=== PATIENT | female | born 1950 | race Caucasian/White ===

== ENCOUNTER 2016-07-17 11:08 | Inpatient (IN) | payer MEDICARE ==
[2016-07-17] VITALS (12 sets, daily range): BP systolic 104–160; BP diastolic 55–80
[~2016-07-17] VITALS: Ht 162.6 cm; Wt 53.5 kg
[~2016-07-17 11:08] MED LIST: ALBU1.25 IH; ASPI-482 PO; ATOR20TA58 PO; BUDE10.2 IH; CARV25TA2 PO; CLOP75TA PO; DIAZ2TAB3 PO; ISOS60TA2 PO; LEVO25TA4 PO; LISI-334 PO; SIMV20TA3 PO; TRAZ50TA15 PO
[2016-07-17] MEDS ORDERED: IV NORMAL SALINE 1000ML BAG 1,000 ML IV ONE ×2 (11:45→15:45)
[2016-07-17 11:58] LABS: BASO % 0 % (0-3); EOS % 0 % (0-3); HEMATOCRIT 44.8 % (36.0-47.0); HEMOGLOBIN 14.8 g/dL (12.0-15.5); LYMPH # 1.5 x10^3/uL (1.0-4.8); LYMPH % 13 % (24-48); MEAN CORPUSCULAR HEMOGLOBIN 32 pg (25-35); MEAN CORPUSCULAR HGB CONC 33 g/dL (31-37); MEAN CORPUSCULAR VOLUME 98 fL (79-100); MONO % 6 % (0-9); NEUT % 81 % (31-73); PLATELET COUNT 147 x10^3/uL (140-400); RED BLOOD COUNT 4.59 x10^6/uL (3.50-5.40); RED CELL DISTRIBUTION WIDTH 15.4 % (11.5-14.5); WHITE BLOOD COUNT 11.3 x10^3/uL (4.0-11.0)
[2016-07-17 11:59] LABS: BILIRUBIN,URINE MODERATE (NEG); GLUCOSE,URINE NEGATIVE (NEG); NITRITE,URINE NEGATIVE (NEG); PH,URINE 5.5; PROTEIN,URINE NEGATIVE (NEG-TRACE); UROBILINOGEN,URINE 0.2 mg/dL (0.2 mg/dL)
[2016-07-17 12:04] LABS: BARBITURATES NEG (NEG); BENZODIAZEPINES POS (NEG); CANNABINOIDS NEG (NEG); COCAINE NEG (NEG); METHADONE NEG (NEG); OPIATES NEG (NEG); PHENCYCLIDINE NEG (NEG)
[2016-07-17 12:05] LABS: CALCIUM 11.5 mg/dL (8.5-10.1); CREATININE 1.7 mg/dL (0.6-1.0); GFR 29.9; INR 1.1 (0.8-1.1); POTASSIUM 3.7 mmol/L (3.5-5.1); PROTHROMBIN TIME PATIENT 13.8 SEC (11.7-14.0)
[2016-07-17 12:07] LABS: BACTERIA,URINE 0 /HPF (0-FEW); RBC,URINE 0 /HPF (0-2); SQUAMOUS EPITHELIAL CELL,UR FEW /LPF; WBC,URINE 0 /HPF (0-4)
[2016-07-17 12:11] LABS: ALBUMIN 4.2 g/dL (3.4-5.0); ALBUMIN/GLOBULIN RATIO 1.6 (1.0-1.7); TOTAL BILIRUBIN 1.2 mg/dL (0.2-1.0); TOTAL PROTEIN 6.8 g/dL (6.4-8.2)
--- NOTE | 2016-07-17 12:39 | EKG ---
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
--- NOTE | 2016-07-17 12:59 | RAD ---
CT HEAD AND CERVICAL SPINE WITHOUT CONTRAST History: AMS/fall Comparison: July 21, 2015. Procedure: Axial images are obtained of the head from the skull base through the vertex without IV contrast. Noncontrast helical CT of the cervical spine was performed. Axial, sagittal, and coronal reconstructions were obtained. One or more of the following individualized dose reduction techniques were utilized for this examination: 1. Automated exposure control 2. Adjustment of the mA and/or kV according to patient size 3. Use of iterative reconstruction technique Head Findings: There is a small volume of hyperdensity present within sulci overlying the left cerebral hemisphere consistent with subarachnoid blood products, mostly along the lateral sulci although minimally seen along the interhemispheric fissure. Blood products are present within the posterior Falcine fissure. Mild prominence of the sulci consistent with cerebral volume loss appears similar to the previous exam. No definite overlying subdural blood products are present. No mass effect or midline shift is seen. Basilar cisterns are patent. Bone windows demonstrate no significant calvarial abnormality. Scalp laceration is present along the vertex on the left. The visualized paranasal sinuses appear clear. Mastoid air cells are well aerated. Cervical Spine Findings: There is no evidence of acute fracture or acute malalignment. C1-C2 articulation is maintained. Vertebral body heights are maintained. Normal cervical lordosis and alignment is maintained. Degenerative changes are present throughout. Posterior elements are intact. Visualized soft tissues of the neck demonstrate no significant abnormalities. The visualized lung apices are clear. IMPRESSION: 1. Acute subarachnoid blood products overlie the left cerebral hemisphere. 2. No acute fracture of the cervical spine. Findings discussed with the Dr. Marie in the ER at 12:55 PM on 07/17/2016.
--- NOTE | 2016-07-17 13:16 | RAD ---
ACUTE ABDOMEN SERIES Clinical Indication: AMS Comparison: July 21, 2015. Technique: Portable upright AP view of the chest is obtained, as well as upright and supine views of the abdomen. Findings: No focal consolidation, pleural effusion or pneumothorax is seen. Cardiomediastinal silhouette is stable in size. No intra-abdominal free air or air-fluid levels are seen on the upright view. No dilated bowel loops are seen to suggest obstruction. Visualized osseous structures and overlying soft tissues of the chest and abdomen demonstrate no acute finding. Degenerative changes present within the spine. IMPRESSION: No radiographic evidence of an acute cardiopulmonary process. Nonobstructive appearing bowel gas pattern.
--- NOTE | 2016-07-17 13:17 | RAD ---
SHOULDER 2+V RIGHT Clinical Indication: fall/pain Comparison: None. Technique: Internal and external rotational and Y scapular views of the right shoulder are obtained. Findings: No acute fracture or dislocation is seen. Glenohumeral and acromioclavicular joints are maintained. Visualized ribs are intact. Visualized lung is clear. Surrounding soft tissues demonstrate no acute finding. IMPRESSION: No acute osseous injury seen.
--- NOTE | 2016-07-17 13:19 | RAD ---
HUMERUS BILAT, ELBOW BILAT 3V Clinical Indication: fall/pain Comparison: None. Technique: Frontal and lateral views of both humeri are obtained. Frontal, oblique and lateral views of both elbows are obtained. Findings: No acute fracture or dislocation is seen involving either humerus. Visualized shoulders and ribs appear intact. No acute osseous injury is seen involving either elbow joint. No posterior fat pad is seen to suggest effusion or fracture. Radiocapitellar alignment is maintained bilaterally. Surrounding soft tissues demonstrate no acute finding. IMPRESSION: No acute osseous injury.
[2016-07-17] MEDS ORDERED: CLINDAMYCIN 600MG PREMIX 50 ML IV ONE (13:45)
[2016-07-17] MEDS ORDERED: LIDOCAINE 1%/EPI 1:100,000 20 ML VIAL. INJ ONE (14:30)
[2016-07-17] MEDS ORDERED: LIDOCAINE/EPI/TETRACAINE TOPICAL GEL 3 ML. TP ONE (14:30)
[2016-07-17] MEDS ORDERED: TETANUS AND DIPHTHERIA TOX/PF 0.5 ML DISP.SYRIN. VAX IM ONE (14:30)
[2016-07-17] MEDS ORDERED: ONDANSETRON PF 4 MG/2 ML VIAL. IV PRN (14:45)
[2016-07-17] MEDS ORDERED: ACETAMINOPHEN 325 MG TABLET. PO PRN (14:45)
[2016-07-17 14:51] LABS: OBC FLU VALID
--- NOTE | 2016-07-17 15:18 | ED.ADGEN ---
Past Medical History Past Medical History: Anxiety, Bronchitis, CAD, Constipation, COPD, High Cholesterol, Hypertension, Pneumonia Past Surgical History: Other Additional Past Surgical Histo: cardiac stents Additional Information: HEAVY SMOKER. Alcohol Use: None Drug Use: None Adult General Chief Complaint Chief Complaint: ALTERED MENTAL STATUS HPI HPI Patient is a 66 year old woman, history of hypertension, hypercholesteremia, COPD, who presents to the emergency department with a report of a fall that occurred yesterday, and altered mental status, with one episode of vomiting. Patient is noted to have matted blood across the back of her head upon arrival, c-collar was placed. She is answering some questions, following some commands, but is confused, tracking with eyes, but not responding verbally to questions. Per her sister's report, was present at bedside, patient did fall yesterday, and has had "a decline over the past couple months". Denies any other injuries, any alcohol use, drug use, is unable to provide any detailed medical history this time. Patient noted to have ecchymosis on her upper arms, also on her knees. She is denying complaints at this time, states that she "might have "fallen. Patient's sister states that the patient called her and said that she fallen yesterday. Patient appears severely clinically dehydrated, blood pressure is 140s over 80s, heart rate is in the 70s, os is saturation of 94% on room air, rectal temperature is 101.2. Review of Systems Review of Systems Constitutional: Denies fever or chills. [] Eyes: Denies change in visual acuity. [] HENT: Denies nasal congestion or sore throat. [] Respiratory: Denies cough or shortness of breath. [] Cardiovascular: Denies chest pain or edema. [] GI: Denies abdominal pain, nausea, vomiting, bloody stools or diarrhea. [] : Denies dysuria. [] Musculoskeletal: Denies back pain or joint pain. [] Integument: Denies rash. [] Neurologic: Denies headache, focal weakness or sensory changes. [] Endocrine: Denies polyuria or polydipsia. [] Lymphatic: Denies swollen glands. [] Psychiatric: Denies depression or anxiety. [] Patient is denying complaints, but is a very limited historian. Current Medications Current Medications Current Medications Medications (Trade) Dose Ordered Sig/Kaela Start Time Stop Time Status Last Admin Dose Admin Clindamycin Phosphate (Cleocin 600 Mg Premix) 50 ml @ 100 mls/hr ONCE ONCE 07/17/16 13:45 07/17/16 14:14 DC 07/17/16 13:49 100 MLS/HR Levofloxacin/ Dextrose 150 ml @ 100 mls/hr 1X ONCE 07/17/16 13:45 07/17/16 15:14 DC 07/17/16 14:22 100 MLS/HR Sodium Chloride 1,000 ml @ 1,000 mls/hr 1X ONCE 07/17/16 11:45 07/17/16 12:44 DC 07/17/16 11:46 1,000 MLS/HR Allergies Allergies Allergies Coded Allergies Type Severity Reaction Last Updated Verified Penicillins Allergy Intermediate 10/23/15 Yes amoxicillin Allergy Intermediate 10/23/15 Yes Physical Exam Physical Exam Constitutional: Well developed, well nourished, no acute distress, non-toxic appearance. [] HENT: Patient with a 1-1/2 by one similar stellate laceration located on the posterior parietal region of the scalp on the left side, hemostatic, approximated and closed per accompanying note, atraumatic, bilateral external ears normal, oropharynx moist, no oral exudates, nose normal. [] Eyes: PERRLA, EOMI, conjunctiva normal, no discharge. [] Neck: Normal range of motion, no tenderness, supple, no stridor. [] Cardiovascular:Heart rate regular rhythm, no murmur, , S1, S2, rubs or gallops. [] Lungs & Thorax: Diminished breath sounds at the bases bilaterally, mild coarse breath sounds noted throughout, patient with a nonproductive cough. Abdomen: Bowel sounds normal, soft, no tenderness, no masses, no pulsatile masses. [] Skin: Warm, poor skin turgor, very warm to touch, ecchymosis noted on shoulders and mid humeral region bilaterally, dry, no erythema, no rash. [] Back: No tenderness, no CVA tenderness. [] Extremities: No tenderness, patient noted to have ecchymosis stated but is ranging arms and legs without issue, is following commands no cyanosis, no clubbing, ROM intact, no edema. Negative Homans sign. [] Neurologic: Patient spontaneous he opening eyes and tracking, will nod head yes or no, is following commands including moving extremities, normal motor function , normal sensory function, no focal deficits noted. [] Psychologic: is confused, flat affect. Current Patient Data Vital Signs Vital Signs Date Time Temp Pulse Resp B/P Pulse Ox O2 Delivery O2 Flow Rate FiO2 07/17/16 11:08 101.2 72 16 159/62 98 Room Air 101.2 Lab Values Laboratory Tests Test 07/17/16 11:15 07/17/16 11:35 07/17/16 13:00 White Blood Count 11.3x10^3/uL (4.0-11.0) H Red Blood Count 4.59x10^6/uL (3.50-5.40) Hemoglobin 14.8g/dL (12.0-15.5) Hematocrit 44.8% (36.0-47.0) Mean Corpuscular Volume 98fL (79-100) Mean Corpuscular Hemoglobin 32pg (25-35) Mean Corpuscular Hemoglobin Concent 33g/dL (31-37) Red Cell Distribution Width 15.4% (11.5-14.5) H Platelet Count 147x10^3/uL (140-400) Neutrophils (%) (Auto) 81% (31-73) H Lymphocytes (%) (Auto) 13% (24-48) L Monocytes (%) (Auto) 6% (0-9) Eosinophils (%) (Auto) 0% (0-3) Basophils (%) (Auto) 0% (0-3) Neutrophils # (Auto) 9.1x10^3uL (1.8-7.7) H Lymphocytes # (Auto) 1.5x10^3/uL (1.0-4.8) Monocytes # (Auto) 0.6x10^3/uL (0.0-1.1) Eosinophils # (Auto) 0.0x10^3/uL (0.0-0.7) Basophils # (Auto) 0.0x10^3/uL (0.0-0.2) Prothrombin Time 13.8SEC (11.7-14.0) Prothrombin Time INR 1.1 (0.8-1.1) PTT 22SEC (24-38) L Sodium Level 143mmol/L (136-145) Potassium Level 3.7mmol/L (3.5-5.1) Chloride Level 102mmol/L (98-107) Carbon Dioxide Level 24mmol/L (21-32) Anion Gap 17 (6-14) H Blood Urea Nitrogen 39mg/dL (7-20) H Creatinine 1.7mg/dL (0.6-1.0) H Estimated GFR (Cockcroft-Gault) 29.9 BUN/Creatinine Ratio 23 (6-20) H Glucose Level 123mg/dL (70-99) H Lactic Acid Level 1.3mmol/L (0.4-2.0) Calcium Level 11.5mg/dL (8.5-10.1) H Total Bilirubin 1.2mg/dL (0.2-1.0) H Aspartate Amino Transferase (AST) 26U/L (15-37) Alanine Aminotransferase (ALT) 36U/L (14-59) Alkaline Phosphatase 88U/L (46-116) Ammonia < 10mcmol/L (11-34) L Troponin I Quantitative < 0.017ng/mL (0.000-0.055) TM-Nva-O-Type Natriuretic Peptide 146pg/mL (0-124) H Total Protein 6.8g/dL (6.4-8.2) Albumin 4.2g/dL (3.4-5.0) Albumin/Globulin Ratio 1.6 (1.0-1.7) Urine Collection Type U cath Urine Color Yellow Urine Clarity Clear Urine pH 5.5 Urine Specific [place] 1.020 Urine Protein Negativemg/dL (NEG-TRACE) Urine Glucose (UA) Negativemg/dL (NEG) Urine Ketones (Stick) 40mg/dL (NEG) Urine Blood Negative (NEG) Urine Nitrite Negative (NEG) Urine Bilirubin Moderate (NEG) Urine Urobilinogen Dipstick 0.2mg/dL (0.2 mg/dL) Urine Leukocyte Esterase Negative (NEG) Urine RBC 0/HPF (0-2) Urine WBC 0/HPF (0-4) Urine Squamous Epithelial Cells Few/LPF Urine Bacteria 0/HPF (0-FEW) Urine Opiates Screen Neg (NEG) Urine Methadone Screen Neg (NEG) Urine Barbiturates Neg (NEG) Urine Phencyclidine Screen Neg (NEG) Urine Amphetamine/Methamphetamine Neg (NEG) Urine Benzodiazepines Screen Pos (NEG) Urine Cocaine Screen Neg (NEG) Urine Cannabinoids Screen Neg (NEG) Urine Ethyl Alcohol Neg (NEG) Influenza Type A Antigen Negative (NEGATIVE) Influenza Type B Antigen Negative (NEGATIVE) Laboratory Tests 07/17/16 11:15 Laboratory Tests 07/17/16 11:15 EKG EKG EC: Sinus rhythm, heart rate 79 bpm, moderate basilar artifact noted, QTc of 356, QRS of 70, SD 164, abnormal ECG, does not meet STEMI criteria. As interpreted by me. [] Radiology/Procedures Radiology/Procedures Procedure note: 2 cm flap laceration of patient's left occipital scalp was anesthetized with 1% lidocaine with epinephrine. Wound was scrubbed with Betadine solution and rinsed with copious amounts of saline. Wound was explored for foreign bodies. No foreign bodies were found. Wound margins were approximated utilizing 5-0 Prolene in a simple interrupted fashion of a single- layer closure for total of 4 stitches. Course & Med Decision Making Course & Med Decision Making Pertinent Labs and Imaging studies reviewed. (See chart for details) Laboratory studies and imaging obtained, CT of the head reveals a small subarachnoid hemorrhage, layering out over the left hemisphere. Discussed with Dr. Stone of neurosurgery, here for the patient admitted to the ICU for close monitoring and plan for a CTA in the morning, as at this time the patient is fairly dehydrated as stated, with a creatinine of 1.7 and a blood urea nitrogen of 39. Patient noted to have ketones in her urine, no evidence of infection in the urine, chest x-rays unremarkable, mild leukocytosis at 11.3, but no significant shift or bandemia. IV fluids initiated, patient also covered with antibiotics, no infiltrate identified on chest x-ray, but based on lung findings and history, with cough, and fever with presentation, community- acquired antibiotics initiated as she has had no recent hospitalizations. Patient is a history of using Plavix, but patient's sister is unclear. Been taking her medications recently. Patient's had no further vomiting the ED, and does deny complaints as stated. Findings as above discussed with Dr. Penaloza of internal medicine, patient accepted to her service as a full admission to the ICU for close monitoring and neurosurgical evaluation as stated. Bridge orders entered per discussion. Dragon Disclaimer Dragon Disclaimer This electronic medical record was generated, in whole or in part, using a voice recognition dictation system. Departure Impression: Primary Impression: Closed head injury Additional Impressions: Altered mental status Subarachnoid hemorrhage Dehydration Disposition: 09 ADMITTED INPATIENT Admitting Physician: Other Condition: IMPROVED Problem Qualifiers MIRIAM VALLEJO DO Jul 17, 2016 15:18 MARE CARRASQUILLO Jul 17, 2016 15:20
[2016-07-17] MEDS ORDERED: ACETAMINOPHEN 650 MG SUPP.RECT. ONE (15:21)
[2016-07-17] MEDS ORDERED: ACETAMINOPHEN 325 MG SUPP.RECT. PR PRN (15:30)
[2016-07-17] MEDS ORDERED: ACETAMINOPHEN 325 MG SUPP.RECT. PR ONE (15:30)
[2016-07-17] MEDS ORDERED: ACETAMINOPHEN 650 MG SUPP.RECT. PR ONE ×2 (15:30→15:45)
--- NOTE | 2016-07-17 17:20 | ACF ---
Admission Forms Criteria SUBARACHNOID HEMORRHAGE, NONSURGICAL TREATMENT Clinical Indications for Admission to Inpatient Care (Place 'X' for any and all applicable criteria): Admission is indicated for ANY ONE of the following(1)(2)(3)(4): [X]I. Acute subarachnoid hemorrhage Extended stay beyond goal length of stay may be needed for(2)(13): [ ]a) Clinical deterioration(3) [ ]b) Hydrocephalus [ ]c) Seizures [ ]d) Cerebral vasospasm [ ]e) Pulmonary edema(4) [ ]f) Hospital-acquired infection (eg, urinary tract infection, pneumonia) [ ]g) Severe electrolyte abnormality (eg, hypernatremia, hyponatremia) [ ]h) Ventilatory failure [ ]i) Increased intracranial pressure [ ]j) Rebleeding The original [employer] content created by [employer] has been revised. The portions of the content which have been revised are identified through the use of italic text or in bold, and [facility] has neither reviewed nor approved the modified material. All other unmodified content is copyright [facility]. Please see references footnoted in the original [facility] edition 2016 Admission Criteria Met?: Yes IVY KULKARNI Jul 17, 2016 17:20
[2016-07-17] MEDS ORDERED: IV NORMAL SALINE 1000ML BAG 1,000 ML IV SCH (17:30)
--- NOTE | 2016-07-17 18:09 | PDOC2 ---
NEUROLOGY CONSULT Date of Admission Date of Admission Full Report Dictated DATE: 07/17/16 TIME: 18:07 Current Medications Current Medications Current Medications Sodium Chloride 1,000 ml @ 1,000 mls/hr 1X ONCE IV Last administered on 11:46; Start 07/17/16 at 11:45; Stop 07/17/16 at 12:44; Status DC Levofloxacin/ Dextrose 150 ml @ 100 mls/hr 1X ONCE IV Last administered on 14:22; Start 07/17/16 at 13:45; Stop 07/17/16 at 15:14; Status DC Clindamycin Phosphate 50 ml @ 100 mls/hr Q8HRS IV ; Start 07/17/16 at 22:00 Clindamycin Phosphate (Cleocin 600 Mg Premix) 50 ml @ 100 mls/hr ONCE ONCE IV Last administered on 07/17/16 13:49; Start 07/17/16 at 13:45; Stop 07/17/16 at 14:14; Status DC Lidocaine/ Epinephrine (Let Topical) 3 ml 1X ONCE TP Last administered on 07/17 14:34; Start 07/17/16 at 14:30; Stop 07/17/16 at 14:31; Status DC Lidocaine/ Epinephrine (Xylocaine 1%-Epi 1:100,000) 20 ml 1X ONCE INJ Last administered on 07/17/16 14:37; Start 07/17/16 at 14:30; Stop 07/17/16 at 14:31 ; Status DC Tetanus/ Diphtheria Toxoids Adsorbed (Tenivac Syringe) 0.5 ml ONCE ONCE VAX IM Last administered on 07/17/16 14:37; Start 07/17/16 at 14:30; Stop 07/17/16 at 14:31; Status DC Ondansetron HCl (Zofran) 4 mg PRN Q8HRS PRN IV NAUSEA/VOMITING; Start 07/17/16 at 14:45; Stop 07/18/16 at 14:44 Acetaminophen (Tylenol) 650 mg PRN Q4HRS PRN PO FEVER; Start 07/17/16 at 14:45 ; Stop 07/18/16 at 14:44 Acetaminophen (Tylenol) 325 mg PRN Q6HRS PRN AR MILD PAIN / TEMP; Start at 15:30 Acetaminophen (Tylenol) 325 mg 1X ONCE AR ; Start 07/17/16 at 15:30; Stop 07/17 at 15:31; Status DC Acetaminophen (Acetaminophen Supp) 650 mg STK-MED ONCE .ROUTE ; Start 07/17/16 at 15:21; Stop 07/17/16 at 15:22; Status DC Acetaminophen 650 mg 650 mg 1X ONCE AR Last administered on 07/17/16t 15:27; Start 07/17/16 at 15:45; Stop 07/17/16 at 15:46; Status DC Sodium Chloride (Iv Sodium Chloride 0.9% 1000ml Bag) 1,000 ml @ 125 mls/hr 1X ONCE IV ; Start 07/17/16 at 15:45; Stop 07/17/16 at 23:44 Acetaminophen 650 mg 650 mg 1X ONCE AR ; Start 07/17/16 at 15:30; Stop at 15:31; Status DC Sodium Chloride 1,000 ml @ 125 mls/hr Q8H IV ; Start 07/17/16 at 17:30 Levetiracetam/ Sodium Chloride (Keppra/Iv Sodium Chloride 0.9% 100ml) 105 ml @ 400 mls/hr Q12HR IV ; Start 07/17/16 at 21:00 Active Scripts Active Reported Isosorbide Mononitrate Er (Isosorbide Mononitrate) 60 Mg Tab.er.24h 1 Tab PO DAILY Simvastatin 20 Mg Tablet 20 Mg PO DAILY Carvedilol 25 Mg Tablet 25 Mg PO BID Aspir 81 (Aspirin) 81 Mg Tablet.dr 1 Tab PO HS Lisinopril 20 Mg Tablet 1 Tab PO DAILY Levothyroxine Sodium 25 Mcg Tablet 1 Tab PO DAILY Clopidogrel (Clopidogrel Bisulfate) 75 Mg Tablet 1 Tab PO DAILY Diazepam 2 Mg Tablet 2 Mg PO PRN TID PRN Trazodone Hcl 50 Mg Tablet 1 Tab PO QHS Allergies Allergies: Coded Allergies: Penicillins (Verified Allergy, Intermediate, 10/23/15) amoxicillin (Verified Allergy, Intermediate, 10/23/15) Vitals VITALS Vital Signs Date Time Temp Pulse Resp B/P Pulse Ox O2 Delivery O2 Flow Rate FiO2 07/17/16 17:30 86 19 140/68 94 Room Air 07/17/16 17:00 101.5 101.5 Labs Labs Laboratory Tests Test 07/17/16 11:15 07/17/16 11:35 07/17/16 13:00 White Blood Count 11.3x10^3/uL (4.0-11.0) Red Blood Count 4.59x10^6/uL (3.50-5.40) Hemoglobin 14.8g/dL (12.0-15.5) Hematocrit 44.8% (36.0-47.0) Mean Corpuscular Volume 98fL (79-100) Mean Corpuscular Hemoglobin 32pg (25-35) Mean Corpuscular Hemoglobin Concent 33g/dL (31-37) Red Cell Distribution Width 15.4% (11.5-14.5) Platelet Count 147x10^3/uL (140-400) Neutrophils (%) (Auto) 81% (31-73) Lymphocytes (%) (Auto) 13% (24-48) Monocytes (%) (Auto) 6% (0-9) Eosinophils (%) (Auto) 0% (0-3) Basophils (%) (Auto) 0% (0-3) Neutrophils # (Auto) 9.1x10^3uL (1.8-7.7) Lymphocytes # (Auto) 1.5x10^3/uL (1.0-4.8) Monocytes # (Auto) 0.6x10^3/uL (0.0-1.1) Eosinophils # (Auto) 0.0x10^3/uL (0.0-0.7) Basophils # (Auto) 0.0x10^3/uL (0.0-0.2) Prothrombin Time 13.8SEC (11.7-14.0) Prothromb Time International Ratio 1.1 (0.8-1.1) Activated Partial Thromboplast Time 22SEC (24-38) Sodium Level 143mmol/L (136-145) Potassium Level 3.7mmol/L (3.5-5.1) Chloride Level 102mmol/L (98-107) Carbon Dioxide Level 24mmol/L (21-32) Anion Gap 17 (6-14) Blood Urea Nitrogen 39mg/dL (7-20) Creatinine 1.7mg/dL (0.6-1.0) Estimated GFR (Cockcroft-Gault) 29.9 BUN/Creatinine Ratio 23 (6-20) Glucose Level 123mg/dL (70-99) Lactic Acid Level 1.3mmol/L (0.4-2.0) Calcium Level 11.5mg/dL (8.5-10.1) Total Bilirubin 1.2mg/dL (0.2-1.0) Aspartate Amino Transf (AST/SGOT) 26U/L (15-37) Alanine Aminotransferase (ALT/SGPT) 36U/L (14-59) Alkaline Phosphatase 88U/L (46-116) Ammonia < 10mcmol/L (11-34) Troponin I Quantitative < 0.017ng/mL (0.000-0.055) FO-Mzp-F-Type Natriuretic Peptide 146pg/mL (0-124) Total Protein 6.8g/dL (6.4-8.2) Albumin 4.2g/dL (3.4-5.0) Albumin/Globulin Ratio 1.6 (1.0-1.7) Urine Collection Type U cath Urine Color Yellow Urine Clarity Clear Urine pH 5.5 Urine Specific [place] 1.020 Urine Protein Negativemg/dL (NEG-TRACE) Urine Glucose (UA) Negativemg/dL (NEG) Urine Ketones (Stick) 40mg/dL (NEG) Urine Blood Negative (NEG) Urine Nitrite Negative (NEG) Urine Bilirubin Moderate (NEG) Urine Urobilinogen Dipstick 0.2mg/dL (0.2 mg/dL) Urine Leukocyte Esterase Negative (NEG) Urine RBC 0/HPF (0-2) Urine WBC 0/HPF (0-4) Urine Squamous Epithelial Cells Few/LPF Urine Bacteria 0/HPF (0-FEW) Urine Opiates Screen Neg (NEG) Urine Methadone Screen Neg (NEG) Urine Barbiturates Neg (NEG) Urine Phencyclidine Screen Neg (NEG) Urine Amphetamine/Methamphetamine Neg (NEG) Urine Benzodiazepines Screen Pos (NEG) Urine Cocaine Screen Neg (NEG) Urine Cannabinoids Screen Neg (NEG) Urine Ethyl Alcohol Neg (NEG) Influenza Type A Antigen Negative (NEGATIVE) Influenza Type B Antigen Negative (NEGATIVE) Laboratory Tests Test 07/17/16 11:15 07/17/16 11:35 07/17/16 13:00 White Blood Count 11.3x10^3/uL (4.0-11.0) Red Blood Count 4.59x10^6/uL (3.50-5.40) Hemoglobin 14.8g/dL (12.0-15.5) Hematocrit 44.8% (36.0-47.0) Mean Corpuscular Volume 98fL (79-100) Mean Corpuscular Hemoglobin 32pg (25-35) Mean Corpuscular Hemoglobin Concent 33g/dL (31-37) Red Cell Distribution Width 15.4% (11.5-14.5) Platelet Count 147x10^3/uL (140-400) Neutrophils (%) (Auto) 81% (31-73) Lymphocytes (%) (Auto) 13% (24-48) Monocytes (%) (Auto) 6% (0-9) Eosinophils (%) (Auto) 0% (0-3) Basophils (%) (Auto) 0% (0-3) Neutrophils # (Auto) 9.1x10^3uL (1.8-7.7) Lymphocytes # (Auto) 1.5x10^3/uL (1.0-4.8) Monocytes # (Auto) 0.6x10^3/uL (0.0-1.1) Eosinophils # (Auto) 0.0x10^3/uL (0.0-0.7) Basophils # (Auto) 0.0x10^3/uL (0.0-0.2) Prothrombin Time 13.8SEC (11.7-14.0) Prothromb Time International Ratio 1.1 (0.8-1.1) Activated Partial Thromboplast Time 22SEC (24-38) Sodium Level 143mmol/L (136-145) Potassium Level 3.7mmol/L (3.5-5.1) Chloride Level 102mmol/L (98-107) Carbon Dioxide Level 24mmol/L (21-32) Anion Gap 17 (6-14) Blood Urea Nitrogen 39mg/dL (7-20) Creatinine 1.7mg/dL (0.6-1.0) Estimated GFR (Cockcroft-Gault) 29.9 BUN/Creatinine Ratio 23 (6-20) Glucose Level 123mg/dL (70-99) Lactic Acid Level 1.3mmol/L (0.4-2.0) Calcium Level 11.5mg/dL (8.5-10.1) Total Bilirubin 1.2mg/dL (0.2-1.0) Aspartate Amino Transf (AST/SGOT) 26U/L (15-37) Alanine Aminotransferase (ALT/SGPT) 36U/L (14-59) Alkaline Phosphatase 88U/L (46-116) Ammonia < 10mcmol/L (11-34) Troponin I Quantitative < 0.017ng/mL (0.000-0.055) KU-Qrw-J-Type Natriuretic Peptide 146pg/mL (0-124) Total Protein 6.8g/dL (6.4-8.2) Albumin 4.2g/dL (3.4-5.0) Albumin/Globulin Ratio 1.6 (1.0-1.7) Urine Collection Type U cath Urine Color Yellow Urine Clarity Clear Urine pH 5.5 Urine Specific [place] 1.020 Urine Protein Negativemg/dL (NEG-TRACE) Urine Glucose (UA) Negativemg/dL (NEG) Urine Ketones (Stick) 40mg/dL (NEG) Urine Blood Negative (NEG) Urine Nitrite Negative (NEG) Urine Bilirubin Moderate (NEG) Urine Urobilinogen Dipstick 0.2mg/dL (0.2 mg/dL) Urine Leukocyte Esterase Negative (NEG) Urine RBC 0/HPF (0-2) Urine WBC 0/HPF (0-4) Urine Squamous Epithelial Cells Few/LPF Urine Bacteria 0/HPF (0-FEW) Urine Opiates Screen Neg (NEG) Urine Methadone Screen Neg (NEG) Urine Barbiturates Neg (NEG) Urine Phencyclidine Screen Neg (NEG) Urine Amphetamine/Methamphetamine Neg (NEG) Urine Benzodiazepines Screen Pos (NEG) Urine Cocaine Screen Neg (NEG) Urine Cannabinoids Screen Neg (NEG) Urine Ethyl Alcohol Neg (NEG) Influenza Type A Antigen Negative (NEGATIVE) Influenza Type B Antigen Negative (NEGATIVE) Assessment/Plan Assessment/Plan Patient is a 66-year-old woman who's had a mental decline over the last year. She has had multiple falls. She's had a change in her cognition and especially over the last few days with the most recent fall. 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 In the emergency room she was lethargic but followed a few commands. In the intensive care unit she was awake but did not follow commands and was completely nonverbal. I initiated Keppra as an anticonvulsant because of the subarachnoid hemorrhage. She will be evaluated by neurosurgery. They apparently ordered a follow-up CT scan of her head for tomorrow. It sounds like it was a traumatic subarachnoid hemorrhage. She was seen by Dr. Cueva one year ago for vasovagal syncope. CARMEN SOTO MD Jul 17, 2016 18:09
--- NOTE | 2016-07-17 20:37 | HP ---
ADMIT DATE: 07/17/2016 CHIEF COMPLAINT: Status post fall with head injury. HISTORY OF PRESENT ILLNESS: The patient is a 66-year-old woman with past medical history of COPD, hypertension and hypercholesterolemia, who presented to the Emergency Room after a reported fall yesterday. She was noted to have matted blood across the back of her head upon arrival. Apparently initially, she was tracking with eyes, but not a verbally responding to questions. Sister was accompanying her and related that she had fallen the day prior, although had apparently not been doing well over the past couple of months with decreased p.o. intake and increasing confusion. Sister apparently does not live with her. In the Emergency Room, the patient was noted to have ecchymosis on her upper arms, knees and face of varying ages. The patient had stable vital signs, but appeared very dehydrated and rectal temperature was 101.2. On further examination, a CT of the head revealed a subarachnoid bleed with blood products, mostly along the lateral sulci, although minimally seen along the interhemispheric fissure, blood products present also in the posterior falcine fissure. No mass effect or midline shift is noted. No fractures were seen in cranium or in cervical spine. X-rays of her elbow, humerus and shoulder, bilaterally showed no fracture. The patient was therefore admitted to the ICU for neurological monitoring. Dr. Stone from Neurosurgery has been consulted. PAST MEDICAL HISTORY: As obtained from family and past medical records here, includes CAD, hypertension and syncope. FAMILY HISTORY: Positive for diabetes. SOCIAL HISTORY: Lives by herself. Smoking less than a pack a day. ALLERGIES: PENICILLINS. MEDICATIONS: MAR reconciled with home medications. REVIEW OF SYSTEMS: Unable to obtain as the patient does not respond verbally. PHYSICAL EXAMINATION: VITAL SIGNS: From today show a blood pressure of 118/74, heart rate of 86, respiratory rate at 18. She is afebrile. GENERAL: This is a 66-year-old woman, pale appearing, lying in bed, curled up in the position, eyes are tracking, but the patient is nonverbal, does not follow commands, pupillary reflexes are intact. She is moving all extremities spontaneously. HEENT: Shows no scleral icterus. Oral mucosa is dry. NECK: Supple, without any lymphadenopathy. LUNGS: Fairly clear bilaterally. HEART: Regular rate and rhythm. ABDOMEN: Positive bowel sounds, soft, nontender. EXTREMITIES: Showed no edema. SKIN: Warm, soft and dry without any rash. LABORATORY DATA: CBC from today shows a WBC of 11.3, hemoglobin 14.8, platelets of 147. Chemistries with a BUN and creatinine of 39 and 1.7. Normal electrolytes. Of note, one year ago, her creatinine was 1.1, glucose at 123, total bilirubin at 1.2, previously at 0.2 one year ago. LFTs within normal. First troponin is negative. BNP 146, ammonia less than 10, lactate at 1.3. Tox screen positive for benzos. Urine is negative. Serology negative for flu A and B. RADIOGRAPHIC FINDINGS: CT head as above. In addition, portable AP of the chest shows no focal consolidation or pleural effusion, no pneumothorax. KUB shows no dilated loops visualized osseous structures show no acute findings, degenerative changes noted. ASSESSMENT AND PLAN: The patient is a 66-year-old woman presenting with [id number] mental status changes, subarachnoid bleed after head trauma yesterday. She apparently has history of frequent falls. Etiology at this time is unknown. She is now admitted to the ICU for neurological checks. Dr. Stone is following. At the current time, no neurological intervention is indicated. We will repeat CT of the head in the a.m. as well as a CTA. Initially, thought had been that the patient is potentially infected and dehydrated. This, however, does not appear to be the case. She remains stable from a vital signs standpoint. She has received copious amounts of IV fluids in the ER. I will decrease to maintenance rate at this time. Acute kidney injury is noted. This actually does indicate volume contraction with elevated BUN and azotemia. Fluids have been administered in the excess of 4 liters. We will recheck labs in a.m. Electrolytes at this time are actually stable, raising the question of chronic renal insufficiency. Mental status at this point is somewhat difficult to explain. Sister unfortunately was not terribly helpful. Apparently, the patient is not completely clear thinking at baseline, this; however, is somewhat in question. We will monitor neurologically for now. Hold all her benzodiazepine, monitoring for benzodiazepine withdrawal. The patient does have a history of coronary artery disease and is on aspirin as well as Plavix. We will hold those for the time being given the acute bleed. Continue all other preventive medications. The patient has history of hypothyroidism and is on repletion. We will obtain a TSH to make sure that there are no relationships between hypothyroidism and mental status changes. The patient has significantly elevated temperature, raising question of infection. However, no imaging study shows any etiology. Blood cultures have been drawn. We will start empiric broad spectrum coverage with Zosyn. PAU LAL MD DR: MARSHAL/nts JOB#: [id number] / [id number] RAGINI
[2016-07-17] MEDS: LEVETIRACETAM 500 MG in IV NORMAL SALINE 100ML 100 ML IV SCH (20:43)
[2016-07-17] MEDS: CLINDAMYCIN 600MG PREMIX 50 ML IV SCH (21:48)
[2016-07-17] MEDS: POTASSIUM CHLORIDE 10 MEQ in IV 1/2 NORMAL SALINE 1,000 ML IV PRN (23:54)
[2016-07-18] VITALS (24 sets, daily range): BP systolic 98–155; BP diastolic 38–95
--- NOTE | 2016-07-18 02:58 | CONS ---
DATE OF CONSULTATION: REFERRING PHYSICIAN: Dr. Penaloza. REASON FOR CONSULTATION: Traumatic brain injury, subarachnoid hemorrhage and encephalopathy. HISTORY OF PRESENT ILLNESS: The patient is a 66-year-old woman who has been experiencing altered mental status. She fell yesterday and striking her head. She has a history of vasovagal syncope. Her family had noticed altered mental status and an episode of vomiting. She was very confused in the Emergency Room, but following a few commands. CT scan of the head was performed revealing some subarachnoid hemorrhage small amount. She was not responding verbally to questions. She was transferred to the Intensive Care Unit. Family has noticed cognitive decline over the last year. She was seen by Neurology a year ago for an episode of syncope where she is struck her head. PAST MEDICAL HISTORY: 1. Hypertension. 2. Hypercholesterolemia. 3. Chronic obstructive pulmonary disease with continued tobacco smoking on home oxygenation at times. 4. Falls. 5. History of vasovagal syncope. 6. Coronary artery disease. 7. History of pneumonia. 8. Cardiac stents. ALLERGIES: PENICILLINS. MEDICATIONS PRIOR TO ADMISSION: Aspirin 81 mg, carvedilol 25 mg twice per day, clopidogrel 75 mg, diazepam 2 mg 3 times per day as needed, isosorbide mononitrate, levothyroxine 25 mcg, lisinopril 20 mg, simvastatin 20 mg, and trazodone 50 mg. FAMILY HISTORY: Hypertension. SOCIAL HISTORY: She is a heavy smoker. She does not drink alcohol or use recreational drugs. REVIEW OF SYSTEMS: Not obtainable as the patient is completely nonverbal and does not respond to questions. PHYSICAL EXAMINATION: VITAL SIGNS: Blood pressure 160/69, pulse 78, respirations 26, temperature 101.2 rectally. Oximetry was 94% on room air. Weight 115 pounds, height 64 inches with a calculated body mass index of 19.7. GENERAL: She was lying in the bed on her left side with her eyes open. She had periodically cough. She did not look at respond to the examiner in any way. When the eyes were open and conjugate. Oculocephalic reflex was intact. Her pupils were 3-4 mm and reactive to light. She could not cooperate for funduscopic exam. She did blink to visual threat and loud clap. NEUROLOGIC: Her ____ symmetric, possibly with some right facial droop. She did not have a pucker response. There was no ____ response. Muscle bulk was diminished. Tone was not spastic or rigid in the upper and lower extremities. When held up and the arms fell down symmetrically. She did withdraw the legs to stimulation symmetrically. Reflexes were trace in the arms, absent at the knees and ankles. Toes were not upgoing. Coordination testing was not possible. She responded to painful stimulation with grimace on all extremities. Gait was not testable. Auscultation of the carotid arteries did not reveal a bruit. Heart rhythm appeared regular without a murmur. Peripheral pulses were symmetric. There was no edema or cyanosis. LABORATORY DATA: CBC revealed a normal hemoglobin, hematocrit and platelet count. White count was elevated to 11.3. Chemistries revealed normal electrolytes. BUN was elevated at 39 and creatinine 1.7. GFR calculated at 29.9. Glucose was elevated at 123, random. Calcium was elevated to 11.5 and total bilirubin elevated to 1.2. Liver enzymes were not elevated. BNP was elevated at 146. Ammonia was not elevated nor was troponin. Albumin was normal as was total protein. Lactic acid was not elevated. Toxicology with urine drug screen was positive for benzodiazepines, which she has prescribed. Influenza screening was negative. Urinalysis revealed 40 mg/dL of ketones, moderate bilirubin and a few squamous epithelial cells. PT/INR was 1.1 and PTT was 22. CT scan of the brain was reviewed. She also had a CT scan of the cervical spine. There was acute subarachnoid blood in the left cerebral hemisphere. There was no acute fracture of the cervical spine. IMPRESSION: The patient is a 66-year-old woman who is a heavy smoker with chronic obstructive pulmonary disease that requires home oxygen and has had falls. There is evidence she did fell and struck her head as there was some dry blood on her scalp. This is likely traumatic subarachnoid hemorrhage. There is not a large amount of hemorrhage, nor was there any mass effect. She has a decline in her usual responsiveness. It sounds that if she has declined over the last year, suggesting underlying dementia, but with this traumatic brain injury, she has not responding to command and appears encephalopathic. RECOMMENDATIONS: The neurosurgeon has advised a CT scan of the head without contrast tomorrow, which I agrees. I will initiate empirically an anticonvulsant as blood can be very irritating to the brain. She only monitored closely in the intensive care unit. CARMEN SOTO MD DR: MANFRED/suyapa JOB#: [id number] / [id number] Dr. Mandi Chaves Dr.
[2016-07-18] MEDS: MEROPENEM 500 MG in IV NORMAL SALINE 50ML 50 ML IV SCH ×3 (04:01→19:50)
[2016-07-18 04:26] LABS: NEG OBC FOB NEG; POS OBC FOB POS
[2016-07-18] MEDS: CLINDAMYCIN 600MG PREMIX 50 ML IV SCH ×3 (05:45→21:25)
--- NOTE | 2016-07-18 06:13 | EKG ---
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
[2016-07-18 06:20] LABS: BASO % 0 % (0-3); EOS % 0 % (0-3); HEMATOCRIT 38.3 % (36.0-47.0); HEMOGLOBIN 12.9 g/dL (12.0-15.5); LYMPH # 2.2 x10^3/uL (1.0-4.8); LYMPH % 18 % (24-48); MEAN CORPUSCULAR HEMOGLOBIN 33 pg (25-35); MEAN CORPUSCULAR HGB CONC 34 g/dL (31-37); MEAN CORPUSCULAR VOLUME 96 fL (79-100); MONO % 9 % (0-9); NEUT % 72 % (31-73); PLATELET COUNT 100 x10^3/uL (140-400); RED BLOOD COUNT 3.97 x10^6/uL (3.50-5.40); RED CELL DISTRIBUTION WIDTH 15.1 % (11.5-14.5); WHITE BLOOD COUNT 12.2 x10^3/uL (4.0-11.0)
[2016-07-18 06:37] LABS: CALCIUM 10.2 mg/dL (8.5-10.1); CREATININE 1.4 mg/dL (0.6-1.0); GFR 37.4; POTASSIUM 3.5 mmol/L (3.5-5.1)
[2016-07-18] MEDS ORDERED: ISOSORBIDE MONONITRATE ER 60 MG TAB.ER.24H. PO SCH (09:00)
[2016-07-18] MEDS: ISOSORBIDE MONONITRATE ER 30 MG TAB.ER.24H PO SCH (09:00)
[2016-07-18] MEDS: LISINOPRIL 20 MG TABLET PO SCH (09:00)
[2016-07-18] MEDS: SIMVASTATIN 20 MG TABLET PO SCH (09:00)
[2016-07-18] MEDS: LEVOTHYROXINE 25 MCG TABLET. PO SCH (09:00)
--- NOTE | 2016-07-18 10:37 | PDOC ---
PROGRESS NOTES Assessment Problems Medical Problems: (1) Altered mental status Status: Acute (2) Closed head injury Status: Acute (3) Dehydration Status: Acute (4) Subarachnoid hemorrhage Status: Acute traumatic subarachnoid hemorrhage history of syncope Possible prior dementia Plan await followup head CT supportive care Subjective Nurse reports she feigns unresponsiveness Objective Vital Signs Date Time Temp Pulse Resp B/P Pulse Ox O2 Delivery O2 Flow Rate FiO2 07/18/16 09:00 52 27 111/60 96 Nasal Cannula 2.0 07/18/16 07:00 99.4 99.4 Intake and Output 07/18/16 07:00 Intake Total 2507 ml Output Total 770 ml Balance 1737 ml Intake IV Total 1050 ml Other 1457 ml Output Urine Total 770 ml PHYSICAL EXAM Alert. Oriented to time, place and person. PERRL. EOMI. CN: no focal findings. Muscle tone: normal. Muscle strength: 4/5 DTR: 1+ Plantar reflex: flexor Gait: not examined in bed. Sensory exam: no abnormal findings. No cerebellar signs elicited. Review of Relevant I have reviewed the following items wesly (where applicable) has been applied. Labs Laboratory Tests Test 07/17/16 11:15 07/17/16 11:35 07/17/16 13:00 07/18/16 00:00 White Blood Count 11.3x10^3/uL (4.0-11.0) Red Blood Count 4.59x10^6/uL (3.50-5.40) Hemoglobin 14.8g/dL (12.0-15.5) Hematocrit 44.8% (36.0-47.0) Mean Corpuscular Volume 98fL (79-100) Mean Corpuscular Hemoglobin 32pg (25-35) Mean Corpuscular Hemoglobin Concent 33g/dL (31-37) Red Cell Distribution Width 15.4% (11.5-14.5) Platelet Count 147x10^3/uL (140-400) Neutrophils (%) (Auto) 81% (31-73) Lymphocytes (%) (Auto) 13% (24-48) Monocytes (%) (Auto) 6% (0-9) Eosinophils (%) (Auto) 0% (0-3) Basophils (%) (Auto) 0% (0-3) Neutrophils # (Auto) 9.1x10^3uL (1.8-7.7) Lymphocytes # (Auto) 1.5x10^3/uL (1.0-4.8) Monocytes # (Auto) 0.6x10^3/uL (0.0-1.1) Eosinophils # (Auto) 0.0x10^3/uL (0.0-0.7) Basophils # (Auto) 0.0x10^3/uL (0.0-0.2) Prothrombin Time 13.8SEC (11.7-14.0) Prothromb Time International Ratio 1.1 (0.8-1.1) Activated Partial Thromboplast Time 22SEC (24-38) Sodium Level 143mmol/L (136-145) Potassium Level 3.7mmol/L (3.5-5.1) Chloride Level 102mmol/L (98-107) Carbon Dioxide Level 24mmol/L (21-32) Anion Gap 17 (6-14) Blood Urea Nitrogen 39mg/dL (7-20) Creatinine 1.7mg/dL (0.6-1.0) Estimated GFR (Cockcroft-Gault) 29.9 BUN/Creatinine Ratio 23 (6-20) Glucose Level 123mg/dL (70-99) Lactic Acid Level 1.3mmol/L (0.4-2.0) Calcium Level 11.5mg/dL (8.5-10.1) Total Bilirubin 1.2mg/dL (0.2-1.0) Aspartate Amino Transf (AST/SGOT) 26U/L (15-37) Alanine Aminotransferase (ALT/SGPT) 36U/L (14-59) Alkaline Phosphatase 88U/L (46-116) Ammonia < 10mcmol/L (11-34) Troponin I Quantitative < 0.017ng/mL (0.000-0.055) DJ-Njw-I-Type Natriuretic Peptide 146pg/mL (0-124) Total Protein 6.8g/dL (6.4-8.2) Albumin 4.2g/dL (3.4-5.0) Albumin/Globulin Ratio 1.6 (1.0-1.7) Urine Collection Type U cath Urine Color Yellow Urine Clarity Clear Urine pH 5.5 Urine Specific [place] 1.020 Urine Protein Negativemg/dL (NEG-TRACE) Urine Glucose (UA) Negativemg/dL (NEG) Urine Ketones (Stick) 40mg/dL (NEG) Urine Blood Negative (NEG) Urine Nitrite Negative (NEG) Urine Bilirubin Moderate (NEG) Urine Urobilinogen Dipstick 0.2mg/dL (0.2 mg/dL) Urine Leukocyte Esterase Negative (NEG) Urine RBC 0/HPF (0-2) Urine WBC 0/HPF (0-4) Urine Squamous Epithelial Cells Few/LPF Urine Bacteria 0/HPF (0-FEW) Urine Opiates Screen Neg (NEG) Urine Methadone Screen Neg (NEG) Urine Barbiturates Neg (NEG) Urine Phencyclidine Screen Neg (NEG) Urine Amphetamine/Methamphetamine Neg (NEG) Urine Benzodiazepines Screen Pos (NEG) Urine Cocaine Screen Neg (NEG) Urine Cannabinoids Screen Neg (NEG) Urine Ethyl Alcohol Neg (NEG) Influenza Type A Antigen Negative (NEGATIVE) Influenza Type B Antigen Negative (NEGATIVE) Stool Occult Blood Negative (NEG) Test 07/18/16 06:10 White Blood Count 12.2x10^3/uL (4.0-11.0) Red Blood Count 3.97x10^6/uL (3.50-5.40) Hemoglobin 12.9g/dL (12.0-15.5) Hematocrit 38.3% (36.0-47.0) Mean Corpuscular Volume 96fL (79-100) Mean Corpuscular Hemoglobin 33pg (25-35) Mean Corpuscular Hemoglobin Concent 34g/dL (31-37) Red Cell Distribution Width 15.1% (11.5-14.5) Platelet Count 100x10^3/uL (140-400) Neutrophils (%) (Auto) 72% (31-73) Lymphocytes (%) (Auto) 18% (24-48) Monocytes (%) (Auto) 9% (0-9) Eosinophils (%) (Auto) 0% (0-3) Basophils (%) (Auto) 0% (0-3) Neutrophils # (Auto) 8.8x10^3uL (1.8-7.7) Lymphocytes # (Auto) 2.2x10^3/uL (1.0-4.8) Monocytes # (Auto) 1.1x10^3/uL (0.0-1.1) Eosinophils # (Auto) 0.0x10^3/uL (0.0-0.7) Basophils # (Auto) 0.0x10^3/uL (0.0-0.2) Sodium Level 146mmol/L (136-145) Potassium Level 3.5mmol/L (3.5-5.1) Chloride Level 109mmol/L (98-107) Carbon Dioxide Level 25mmol/L (21-32) Anion Gap 12 (6-14) Blood Urea Nitrogen 35mg/dL (7-20) Creatinine 1.4mg/dL (0.6-1.0) Estimated GFR (Cockcroft-Gault) 37.4 Glucose Level 122mg/dL (70-99) Calcium Level 10.2mg/dL (8.5-10.1) Laboratory Tests Test 07/17/16 11:15 07/17/16 11:35 07/17/16 13:00 07/18/16 00:00 White Blood Count 11.3x10^3/uL (4.0-11.0) Red Blood Count 4.59x10^6/uL (3.50-5.40) Hemoglobin 14.8g/dL (12.0-15.5) Hematocrit 44.8% (36.0-47.0) Mean Corpuscular Volume 98fL (79-100) Mean Corpuscular Hemoglobin 32pg (25-35) Mean Corpuscular Hemoglobin Concent 33g/dL (31-37) Red Cell Distribution Width 15.4% (11.5-14.5) Platelet Count 147x10^3/uL (140-400) Neutrophils (%) (Auto) 81% (31-73) Lymphocytes (%) (Auto) 13% (24-48) Monocytes (%) (Auto) 6% (0-9) Eosinophils (%) (Auto) 0% (0-3) Basophils (%) (Auto) 0% (0-3) Neutrophils # (Auto) 9.1x10^3uL (1.8-7.7) Lymphocytes # (Auto) 1.5x10^3/uL (1.0-4.8) Monocytes # (Auto) 0.6x10^3/uL (0.0-1.1) Eosinophils # (Auto) 0.0x10^3/uL (0.0-0.7) Basophils # (Auto) 0.0x10^3/uL (0.0-0.2) Prothrombin Time 13.8SEC (11.7-14.0) Prothromb Time International Ratio 1.1 (0.8-1.1) Activated Partial Thromboplast Time 22SEC (24-38) Sodium Level 143mmol/L (136-145) Potassium Level 3.7mmol/L (3.5-5.1) Chloride Level 102mmol/L (98-107) Carbon Dioxide Level 24mmol/L (21-32) Anion Gap 17 (6-14) Blood Urea Nitrogen 39mg/dL (7-20) Creatinine 1.7mg/dL (0.6-1.0) Estimated GFR (Cockcroft-Gault) 29.9 BUN/Creatinine Ratio 23 (6-20) Glucose Level 123mg/dL (70-99) Lactic Acid Level 1.3mmol/L (0.4-2.0) Calcium Level 11.5mg/dL (8.5-10.1) Total Bilirubin 1.2mg/dL (0.2-1.0) Aspartate Amino Transf (AST/SGOT) 26U/L (15-37) Alanine Aminotransferase (ALT/SGPT) 36U/L (14-59) Alkaline Phosphatase 88U/L (46-116) Ammonia < 10mcmol/L (11-34) Troponin I Quantitative < 0.017ng/mL (0.000-0.055) DV-Fhy-A-Type Natriuretic Peptide 146pg/mL (0-124) Total Protein 6.8g/dL (6.4-8.2) Albumin 4.2g/dL (3.4-5.0) Albumin/Globulin Ratio 1.6 (1.0-1.7) Urine Collection Type U cath Urine Color Yellow Urine Clarity Clear Urine pH 5.5 Urine Specific [place] 1.020 Urine Protein Negativemg/dL (NEG-TRACE) Urine Glucose (UA) Negativemg/dL (NEG) Urine Ketones (Stick) 40mg/dL (NEG) Urine Blood Negative (NEG) Urine Nitrite Negative (NEG) Urine Bilirubin Moderate (NEG) Urine Urobilinogen Dipstick 0.2mg/dL (0.2 mg/dL) Urine Leukocyte Esterase Negative (NEG) Urine RBC 0/HPF (0-2) Urine WBC 0/HPF (0-4) Urine Squamous Epithelial Cells Few/LPF Urine Bacteria 0/HPF (0-FEW) Urine Opiates Screen Neg (NEG) Urine Methadone Screen Neg (NEG) Urine Barbiturates Neg (NEG) Urine Phencyclidine Screen Neg (NEG) Urine Amphetamine/Methamphetamine Neg (NEG) Urine Benzodiazepines Screen Pos (NEG) Urine Cocaine Screen Neg (NEG) Urine Cannabinoids Screen Neg (NEG) Urine Ethyl Alcohol Neg (NEG) Influenza Type A Antigen Negative (NEGATIVE) Influenza Type B Antigen Negative (NEGATIVE) Stool Occult Blood Negative (NEG) Test 07/18/16 06:10 White Blood Count 12.2x10^3/uL (4.0-11.0) Red Blood Count 3.97x10^6/uL (3.50-5.40) Hemoglobin 12.9g/dL (12.0-15.5) Hematocrit 38.3% (36.0-47.0) Mean Corpuscular Volume 96fL (79-100) Mean Corpuscular Hemoglobin 33pg (25-35) Mean Corpuscular Hemoglobin Concent 34g/dL (31-37) Red Cell Distribution Width 15.1% (11.5-14.5) Platelet Count 100x10^3/uL (140-400) Neutrophils (%) (Auto) 72% (31-73) Lymphocytes (%) (Auto) 18% (24-48) Monocytes (%) (Auto) 9% (0-9) Eosinophils (%) (Auto) 0% (0-3) Basophils (%) (Auto) 0% (0-3) Neutrophils # (Auto) 8.8x10^3uL (1.8-7.7) Lymphocytes # (Auto) 2.2x10^3/uL (1.0-4.8) Monocytes # (Auto) 1.1x10^3/uL (0.0-1.1) Eosinophils # (Auto) 0.0x10^3/uL (0.0-0.7) Basophils # (Auto) 0.0x10^3/uL (0.0-0.2) Sodium Level 146mmol/L (136-145) Potassium Level 3.5mmol/L (3.5-5.1) Chloride Level 109mmol/L (98-107) Carbon Dioxide Level 25mmol/L (21-32) Anion Gap 12 (6-14) Blood Urea Nitrogen 35mg/dL (7-20) Creatinine 1.4mg/dL (0.6-1.0) Estimated GFR (Cockcroft-Gault) 37.4 Glucose Level 122mg/dL (70-99) Calcium Level 10.2mg/dL (8.5-10.1) Medications Current Medications Sodium Chloride 1,000 ml @ 1,000 mls/hr 1X ONCE IV Last administered on 11:46; Start 07/17/16 at 11:45; Stop 07/17/16 at 12:44; Status DC Levofloxacin/ Dextrose 150 ml @ 100 mls/hr 1X ONCE IV Last administered on 14:22; Start 07/17/16 at 13:45; Stop 07/17/16 at 15:14; Status DC Clindamycin Phosphate 50 ml @ 100 mls/hr Q8HRS IV Last administered on 05:45; Start 07/17/16 at 22:00 Clindamycin Phosphate (Cleocin 600 Mg Premix) 50 ml @ 100 mls/hr ONCE ONCE IV Last administered on 07/17/16 13:49; Start 07/17/16 at 13:45; Stop 07/17/16 at 19:13; Status DC Lidocaine/ Epinephrine (Let Topical) 3 ml 1X ONCE TP Last administered on 07/17 14:34; Start 07/17/16 at 14:30; Stop 07/17/16 at 14:31; Status DC Lidocaine/ Epinephrine (Xylocaine 1%-Epi 1:100,000) 20 ml 1X ONCE INJ Last administered on 07/17/16 14:37; Start 07/17/16 at 14:30; Stop 07/17/16 at 14:31 ; Status DC Tetanus/ Diphtheria Toxoids Adsorbed (Tenivac Syringe) 0.5 ml ONCE ONCE VAX IM Last administered on 07/17/16 14:37; Start 07/17/16 at 14:30; Stop 07/17/16 at 14:31; Status DC Ondansetron HCl (Zofran) 4 mg PRN Q8HRS PRN IV NAUSEA/VOMITING; Start 07/17/16 at 14:45; Stop 07/18/16 at 14:44 Acetaminophen (Tylenol) 650 mg PRN Q4HRS PRN PO FEVER; Start 07/17/16 at 14:45 ; Stop 07/18/16 at 14:44 Acetaminophen (Tylenol) 325 mg PRN Q6HRS PRN [place] MILD PAIN / TEMP; Start at 15:30 Acetaminophen (Tylenol) 325 mg 1X ONCE [place] ; Start 07/17/16 at 15:30; Stop 07/17 at 15:31; Status DC Acetaminophen (Acetaminophen Supp) 650 mg STK-MED ONCE .ROUTE ; Start 07/17/16 at 15:21; Stop 07/17/16 at 15:22; Status DC Acetaminophen 650 mg 650 mg 1X ONCE [place] Last administered on 07/17/16 15:27; Start 07/17/16 at 15:45; Stop 07/17/16 at 15:46; Status DC Sodium Chloride (Iv Sodium Chloride 0.9% 1000ml Bag) 1,000 ml @ 125 mls/hr 1X ONCE IV ; Start 07/17/16 at 15:45; Stop 07/17/16 at 23:44; Status DC Acetaminophen 650 mg 650 mg 1X ONCE [place] ; Start 07/17/16 at 15:30; Stop at 15:31; Status DC Sodium Chloride 1,000 ml @ 125 mls/hr Q8H IV Last administered on 07/17/16 18 :22; Start 07/17/16 at 17:30; Stop 07/17/16 at 19:13; Status DC Levetiracetam/ Sodium Chloride (Keppra/Iv Sodium Chloride 0.9% 100ml) 105 ml @ 400 mls/hr Q12HR IV Last administered on 07/17/16 20:43; Start 07/17/16 at 21: 00 Isosorbide Mononitrate (Imdur) 60 mg DAILY PO ; Start 07/18/16 at 09:00; Stop at 09:00; Status DC Levothyroxine Sodium (Synthroid) 25 mcg DAILY07 PO ; Start 07/18/16 at 09:00 Lisinopril (Prinivil) 20 mg DAILY PO ; Start 07/18/16 at 09:00 Simvastatin (Zocor) 20 mg DAILY PO ; Start 07/18/16 at 09:00 Isosorbide Mononitrate 60 mg 60 mg DAILY PO ; Start 07/18/16 at 09:00 Potassium Chloride 10 meq/ Sodium Chloride 1,005 ml @ 75 mls/hr [id number] PRN IV . Last administered on 07/17/16 23:54; Start 07/17/16 at 19:00 Meropenem/Sodium Chloride (Merrem/Iv Sodium Chloride 0.9% 50ml) 50 ml @ 100 mls /hr Q8H IV Last administered on 07/18/16 04:01; Start 07/18/16 at 04:00 Active Scripts Active Reported Isosorbide Mononitrate Er (Isosorbide Mononitrate) 60 Mg Tab.er.24h 1 Tab PO DAILY Simvastatin 20 Mg Tablet 20 Mg PO DAILY Carvedilol 25 Mg Tablet 25 Mg PO BID Aspir 81 (Aspirin) 81 Mg Tablet.dr 1 Tab PO HS Lisinopril 20 Mg Tablet 1 Tab PO DAILY Levothyroxine Sodium 25 Mcg Tablet 1 Tab PO DAILY Clopidogrel (Clopidogrel Bisulfate) 75 Mg Tablet 1 Tab PO DAILY Diazepam 2 Mg Tablet 2 Mg PO PRN TID PRN Trazodone Hcl 50 Mg Tablet 1 Tab PO QHS Vitals/I & O Vital Sign - Last 24 Hours 07/17/16 07/17/16 07/17/16 07/17/16 11:08 11:17 11:47 12:17 Temp 101.2 101.2 Pulse 72 68 70 70 Resp 16 18 14 22 B/P 159/62 149/75 164/79 186/86 Pulse Ox 98 98 97 97 O2 Delivery Room Air Room Air Room Air Room Air 07/17/16 07/17/16 07/17/16 07/17/16 12:44 13:10 13:34 14:01 Pulse 76 74 75 69 Resp 20 24 22 28 B/P 194/72 143/85 137/72 132/65 Pulse Ox 97 96 95 94 O2 Delivery Room Air Room Air Room Air Room Air 07/17/16 07/17/16 07/17/16 07/17/16 14:30 15:02 15:17 15:45 Pulse 73 79 78 95 Resp 23 25 26 16 B/P 129/73 154/63 160/69 106/67 Pulse Ox 95 96 94 96 O2 Delivery Room Air Room Air Room Air Room Air 07/17/16 07/17/16 07/17/16 07/17/16 16:00 16:15 16:30 16:42 Temp 103.1 103.1 Pulse 96 88 86 Resp 19 21 20 B/P 160/80 146/76 142/80 Pulse Ox 95 93 95 O2 Delivery Room Air Room Air Room Air Room Air 07/17/16 07/17/16 07/17/16 07/17/16 17:00 17:30 18:00 19:00 Temp 101.5 101.5 Pulse 82 86 86 84 Resp 19 19 18 32 B/P 137/74 140/68 118/74 118/74 Pulse Ox 96 94 96 95 O2 Delivery Room Air Room Air Room Air Room Air 07/17/16 07/17/16 07/17/16 07/17/16 20:00 20:00 21:00 22:00 Temp 99.0 99.0 Pulse 88 80 75 Resp 31 35 37 B/P 143/67 133/58 134/56 Pulse Ox 91 95 93 O2 Delivery Room Air Room Air Room Air Room Air 07/17/16 07/17/16 07/18/16 07/18/16 23:00 23:59 00:00 01:00 Temp 101.7 101.7 Pulse 75 79 67 Resp 32 34 31 B/P 104/55 118/70 127/66 Pulse Ox 93 91 92 O2 Delivery Room Air Room Air Room Air Room Air 07/18/16 07/18/16 07/18/16 07/18/16 02:00 03:00 04:00 04:00 Temp 99.3 99.3 Pulse 62 71 75 Resp 24 33 36 B/P 134/65 133/67 141/70 Pulse Ox 92 97 96 O2 Delivery Nasal Cannula Nasal Cannula Nasal Cannula Room Air O2 Flow Rate 2.0 2.0 2.0 07/18/16 07/18/16 07/18/16 07/18/16 05:00 06:00 07:00 08:00 Temp 99.4 99.4 Pulse 60 51 69 50 Resp 34 35 27 28 B/P 116/85 116/60 129/65 117/73 Pulse Ox 98 98 94 93 O2 Delivery Nasal Cannula Nasal Cannula Nasal Cannula Nasal Cannula O2 Flow Rate 2.0 2.0 2.0 2.0 07/18/16 07/18/16 08:00 09:00 Pulse 52 Resp 27 B/P 111/60 Pulse Ox 96 O2 Delivery Room Air Nasal Cannula O2 Flow Rate 2.0 2.0 Intake and Output 07/17/16 07/17/16 07/18/16 15:00 23:00 07:00 Intake Total 1050 ml 1457 ml Output Total 555 ml 215 ml Balance 1050 ml -555 ml 1242 ml NESTOR MOREL MD Jul 18, 2016 10:37
[2016-07-18] MEDS: LEVETIRACETAM 500 MG in IV NORMAL SALINE 100ML 100 ML IV SCH ×2 (10:43→21:25)
[2016-07-18] MEDS: POTASSIUM CHLORIDE 10 MEQ in IV 1/2 NORMAL SALINE 1,000 ML IV PRN ×2 (11:50→13:17)
[2016-07-18] MEDS ORDERED: hydrALAZINE 20 MG/ML VIAL. IVP PRN (12:30)
[2016-07-18] MEDS ORDERED: ONDANSETRON PF 4 MG/2 ML VIAL. IV PRN (12:30)
--- NOTE | 2016-07-18 12:31 | PDOC ---
PROGRESS NOTES Chief Complaint Chief Complaint traumatic subarachnoid hemorrhage history of syncope Possible prior dementia h/o CAD hypothyroidism fever, 2/2 hemorrhage likely leukocytosis, reactive likely plan: fu with Neuro repeat CT head 07/18 cont home meds, hold asa, plavix gi ppx cont iv abx for now, dc soon History of Present Illness History of Present Illness arousable, not answer questions or follow commands Vitals Vitals Vital Signs Date Time Temp Pulse Resp B/P Pulse Ox O2 Delivery O2 Flow Rate FiO2 07/18/16 11:00 66 24 133/64 96 Nasal Cannula 2.0 07/18/16 07:00 99.4 99.4 Physical Exam General: Alert Heart: Regular rate, Normal S1, Normal S2 Lungs: Clear Abdomen: Normal bowel sounds, Soft Extremities: No clubbing, No cyanosis Skin: No rashes Labs LABS Laboratory Tests Test 07/17/16 13:00 07/18/16 00:00 07/18/16 06:10 Influenza Type A Antigen Negative (NEGATIVE) Influenza Type B Antigen Negative (NEGATIVE) Stool Occult Blood Negative (NEG) White Blood Count 12.2x10^3/uL (4.0-11.0) Red Blood Count 3.97x10^6/uL (3.50-5.40) Hemoglobin 12.9g/dL (12.0-15.5) Hematocrit 38.3% (36.0-47.0) Mean Corpuscular Volume 96fL (79-100) Mean Corpuscular Hemoglobin 33pg (25-35) Mean Corpuscular Hemoglobin Concent 34g/dL (31-37) Red Cell Distribution Width 15.1% (11.5-14.5) Platelet Count 100x10^3/uL (140-400) Neutrophils (%) (Auto) 72% (31-73) Lymphocytes (%) (Auto) 18% (24-48) Monocytes (%) (Auto) 9% (0-9) Eosinophils (%) (Auto) 0% (0-3) Basophils (%) (Auto) 0% (0-3) Neutrophils # (Auto) 8.8x10^3uL (1.8-7.7) Lymphocytes # (Auto) 2.2x10^3/uL (1.0-4.8) Monocytes # (Auto) 1.1x10^3/uL (0.0-1.1) Eosinophils # (Auto) 0.0x10^3/uL (0.0-0.7) Basophils # (Auto) 0.0x10^3/uL (0.0-0.2) Sodium Level 146mmol/L (136-145) Potassium Level 3.5mmol/L (3.5-5.1) Chloride Level 109mmol/L (98-107) Carbon Dioxide Level 25mmol/L (21-32) Anion Gap 12 (6-14) Blood Urea Nitrogen 35mg/dL (7-20) Creatinine 1.4mg/dL (0.6-1.0) Estimated GFR (Cockcroft-Gault) 37.4 Glucose Level 122mg/dL (70-99) Calcium Level 10.2mg/dL (8.5-10.1) Review of Systems Review of Systems no fever, chills, sob or chest pain Assessment and Plan Assessmemt and Plan Problems Medical Problems: (1) Altered mental status Status: Acute (2) Closed head injury Status: Acute (3) Dehydration Status: Acute (4) Subarachnoid hemorrhage Status: Acute Problems: Comment Review of Relevant I have reviewed the following items wesly (where applicable) has been applied. Labs Laboratory Tests Test 07/17/16 11:15 07/17/16 11:35 07/17/16 13:00 07/18/16 00:00 White Blood Count 11.3x10^3/uL (4.0-11.0) Red Blood Count 4.59x10^6/uL (3.50-5.40) Hemoglobin 14.8g/dL (12.0-15.5) Hematocrit 44.8% (36.0-47.0) Mean Corpuscular Volume 98fL (79-100) Mean Corpuscular Hemoglobin 32pg (25-35) Mean Corpuscular Hemoglobin Concent 33g/dL (31-37) Red Cell Distribution Width 15.4% (11.5-14.5) Platelet Count 147x10^3/uL (140-400) Neutrophils (%) (Auto) 81% (31-73) Lymphocytes (%) (Auto) 13% (24-48) Monocytes (%) (Auto) 6% (0-9) Eosinophils (%) (Auto) 0% (0-3) Basophils (%) (Auto) 0% (0-3) Neutrophils # (Auto) 9.1x10^3uL (1.8-7.7) Lymphocytes # (Auto) 1.5x10^3/uL (1.0-4.8) Monocytes # (Auto) 0.6x10^3/uL (0.0-1.1) Eosinophils # (Auto) 0.0x10^3/uL (0.0-0.7) Basophils # (Auto) 0.0x10^3/uL (0.0-0.2) Prothrombin Time 13.8SEC (11.7-14.0) Prothromb Time International Ratio 1.1 (0.8-1.1) Activated Partial Thromboplast Time 22SEC (24-38) Sodium Level 143mmol/L (136-145) Potassium Level 3.7mmol/L (3.5-5.1) Chloride Level 102mmol/L (98-107) Carbon Dioxide Level 24mmol/L (21-32) Anion Gap 17 (6-14) Blood Urea Nitrogen 39mg/dL (7-20) Creatinine 1.7mg/dL (0.6-1.0) Estimated GFR (Cockcroft-Gault) 29.9 BUN/Creatinine Ratio 23 (6-20) Glucose Level 123mg/dL (70-99) Lactic Acid Level 1.3mmol/L (0.4-2.0) Calcium Level 11.5mg/dL (8.5-10.1) Total Bilirubin 1.2mg/dL (0.2-1.0) Aspartate Amino Transf (AST/SGOT) 26U/L (15-37) Alanine Aminotransferase (ALT/SGPT) 36U/L (14-59) Alkaline Phosphatase 88U/L (46-116) Ammonia < 10mcmol/L (11-34) Troponin I Quantitative < 0.017ng/mL (0.000-0.055) WT-Aob-X-Type Natriuretic Peptide 146pg/mL (0-124) Total Protein 6.8g/dL (6.4-8.2) Albumin 4.2g/dL (3.4-5.0) Albumin/Globulin Ratio 1.6 (1.0-1.7) Urine Collection Type U cath Urine Color Yellow Urine Clarity Clear Urine pH 5.5 Urine Specific [place] 1.020 Urine Protein Negativemg/dL (NEG-TRACE) Urine Glucose (UA) Negativemg/dL (NEG) Urine Ketones (Stick) 40mg/dL (NEG) Urine Blood Negative (NEG) Urine Nitrite Negative (NEG) Urine Bilirubin Moderate (NEG) Urine Urobilinogen Dipstick 0.2mg/dL (0.2 mg/dL) Urine Leukocyte Esterase Negative (NEG) Urine RBC 0/HPF (0-2) Urine WBC 0/HPF (0-4) Urine Squamous Epithelial Cells Few/LPF Urine Bacteria 0/HPF (0-FEW) Urine Opiates Screen Neg (NEG) Urine Methadone Screen Neg (NEG) Urine Barbiturates Neg (NEG) Urine Phencyclidine Screen Neg (NEG) Urine Amphetamine/Methamphetamine Neg (NEG) Urine Benzodiazepines Screen Pos (NEG) Urine Cocaine Screen Neg (NEG) Urine Cannabinoids Screen Neg (NEG) Urine Ethyl Alcohol Neg (NEG) Influenza Type A Antigen Negative (NEGATIVE) Influenza Type B Antigen Negative (NEGATIVE) Stool Occult Blood Negative (NEG) Test 07/18/16 06:10 White Blood Count 12.2x10^3/uL (4.0-11.0) Red Blood Count 3.97x10^6/uL (3.50-5.40) Hemoglobin 12.9g/dL (12.0-15.5) Hematocrit 38.3% (36.0-47.0) Mean Corpuscular Volume 96fL (79-100) Mean Corpuscular Hemoglobin 33pg (25-35) Mean Corpuscular Hemoglobin Concent 34g/dL (31-37) Red Cell Distribution Width 15.1% (11.5-14.5) Platelet Count 100x10^3/uL (140-400) Neutrophils (%) (Auto) 72% (31-73) Lymphocytes (%) (Auto) 18% (24-48) Monocytes (%) (Auto) 9% (0-9) Eosinophils (%) (Auto) 0% (0-3) Basophils (%) (Auto) 0% (0-3) Neutrophils # (Auto) 8.8x10^3uL (1.8-7.7) Lymphocytes # (Auto) 2.2x10^3/uL (1.0-4.8) Monocytes # (Auto) 1.1x10^3/uL (0.0-1.1) Eosinophils # (Auto) 0.0x10^3/uL (0.0-0.7) Basophils # (Auto) 0.0x10^3/uL (0.0-0.2) Sodium Level 146mmol/L (136-145) Potassium Level 3.5mmol/L (3.5-5.1) Chloride Level 109mmol/L (98-107) Carbon Dioxide Level 25mmol/L (21-32) Anion Gap 12 (6-14) Blood Urea Nitrogen 35mg/dL (7-20) Creatinine 1.4mg/dL (0.6-1.0) Estimated GFR (Cockcroft-Gault) 37.4 Glucose Level 122mg/dL (70-99) Calcium Level 10.2mg/dL (8.5-10.1) Laboratory Tests Test 07/17/16 13:00 07/18/16 00:00 07/18/16 06:10 Influenza Type A Antigen Negative (NEGATIVE) Influenza Type B Antigen Negative (NEGATIVE) Stool Occult Blood Negative (NEG) White Blood Count 12.2x10^3/uL (4.0-11.0) Red Blood Count 3.97x10^6/uL (3.50-5.40) Hemoglobin 12.9g/dL (12.0-15.5) Hematocrit 38.3% (36.0-47.0) Mean Corpuscular Volume 96fL (79-100) Mean Corpuscular Hemoglobin 33pg (25-35) Mean Corpuscular Hemoglobin Concent 34g/dL (31-37) Red Cell Distribution Width 15.1% (11.5-14.5) Platelet Count 100x10^3/uL (140-400) Neutrophils (%) (Auto) 72% (31-73) Lymphocytes (%) (Auto) 18% (24-48) Monocytes (%) (Auto) 9% (0-9) Eosinophils (%) (Auto) 0% (0-3) Basophils (%) (Auto) 0% (0-3) Neutrophils # (Auto) 8.8x10^3uL (1.8-7.7) Lymphocytes # (Auto) 2.2x10^3/uL (1.0-4.8) Monocytes # (Auto) 1.1x10^3/uL (0.0-1.1) Eosinophils # (Auto) 0.0x10^3/uL (0.0-0.7) Basophils # (Auto) 0.0x10^3/uL (0.0-0.2) Sodium Level 146mmol/L (136-145) Potassium Level 3.5mmol/L (3.5-5.1) Chloride Level 109mmol/L (98-107) Carbon Dioxide Level 25mmol/L (21-32) Anion Gap 12 (6-14) Blood Urea Nitrogen 35mg/dL (7-20) Creatinine 1.4mg/dL (0.6-1.0) Estimated GFR (Cockcroft-Gault) 37.4 Glucose Level 122mg/dL (70-99) Calcium Level 10.2mg/dL (8.5-10.1) Microbiology 07/17/16 Blood Culture - Preliminary, Resulted NO GROWTH AFTER 1 DAY Medications Current Medications Sodium Chloride 1,000 ml @ 1,000 mls/hr 1X ONCE IV Last administered on 11:46; Start 07/17/16 at 11:45; Stop 07/17/16 at 12:44; Status DC Levofloxacin/ Dextrose 150 ml @ 100 mls/hr 1X ONCE IV Last administered on 14:22; Start 07/17/16 at 13:45; Stop 07/17/16 at 15:14; Status DC Clindamycin Phosphate 50 ml @ 100 mls/hr Q8HRS IV Last administered on 05:45; Start 07/17/16 at 22:00 Clindamycin Phosphate (Cleocin 600 Mg Premix) 50 ml @ 100 mls/hr ONCE ONCE IV Last administered on 07/17/16 13:49; Start 07/17/16 at 13:45; Stop 07/17/16 at 19:13; Status DC Lidocaine/ Epinephrine (Let Topical) 3 ml 1X ONCE TP Last administered on 07/17 14:34; Start 07/17/16 at 14:30; Stop 07/17/16 at 14:31; Status DC Lidocaine/ Epinephrine (Xylocaine 1%-Epi 1:100,000) 20 ml 1X ONCE INJ Last administered on 07/17/16 14:37; Start 07/17/16 at 14:30; Stop 07/17/16 at 14:31 ; Status DC Tetanus/ Diphtheria Toxoids Adsorbed (Tenivac Syringe) 0.5 ml ONCE ONCE VAX IM Last administered on 07/17/16 14:37; Start 07/17/16 at 14:30; Stop 07/17/16 at 14:31; Status DC Ondansetron HCl (Zofran) 4 mg PRN Q8HRS PRN IV NAUSEA/VOMITING; Start 07/17/16 at 14:45; Stop 07/18/16 at 14:44 Acetaminophen (Tylenol) 650 mg PRN Q4HRS PRN PO FEVER; Start 07/17/16 at 14:45 ; Stop 07/18/16 at 14:44 Acetaminophen (Tylenol) 325 mg PRN Q6HRS PRN AR MILD PAIN / TEMP; Start at 15:30 Acetaminophen (Tylenol) 325 mg 1X ONCE AR ; Start 07/17/16 at 15:30; Stop 07/17 at 15:31; Status DC Acetaminophen (Acetaminophen Supp) 650 mg STK-MED ONCE .ROUTE ; Start 07/17/16 at 15:21; Stop 07/17/16 at 15:22; Status DC Acetaminophen 650 mg 650 mg 1X ONCE AR Last administered on 07/17/16 15:27; Start 07/17/16 at 15:45; Stop 07/17/16 at 15:46; Status DC Sodium Chloride (Iv Sodium Chloride 0.9% 1000ml Bag) 1,000 ml @ 125 mls/hr 1X ONCE IV ; Start 07/17/16 at 15:45; Stop 07/17/16 at 23:44; Status DC Acetaminophen 650 mg 650 mg 1X ONCE AR ; Start 07/17/16 at 15:30; Stop at 15:31; Status DC Sodium Chloride 1,000 ml @ 125 mls/hr Q8H IV Last administered on 07/17/16 18 :22; Start 07/17/16 at 17:30; Stop 07/17/16 at 19:13; Status DC Levetiracetam/ Sodium Chloride (Keppra/Iv Sodium Chloride 0.9% 100ml) 105 ml @ 400 mls/hr Q12HR IV Last administered on 07/18/16 10:43; Start 07/17/16 at 21: 00 Isosorbide Mononitrate (Imdur) 60 mg DAILY PO ; Start 07/18/16 at 09:00; Stop at 09:00; Status DC Levothyroxine Sodium (Synthroid) 25 mcg DAILY07 PO ; Start 07/18/16 at 09:00 Lisinopril (Prinivil) 20 mg DAILY PO ; Start 07/18/16 at 09:00 Simvastatin (Zocor) 20 mg DAILY PO ; Start 07/18/16 at 09:00 Isosorbide Mononitrate 60 mg 60 mg DAILY PO ; Start 07/18/16 at 09:00 Potassium Chloride 10 meq/ Sodium Chloride 1,005 ml @ 75 mls/hr [id number] PRN IV . Last administered on 07/18/16 11:50; Start 07/17/16 at 19:00 Meropenem/Sodium Chloride (Merrem/Iv Sodium Chloride 0.9% 50ml) 50 ml @ 100 mls /hr Q8H IV Last administered on 07/18/16 11:49; Start 07/18/16 at 04:00 Active Scripts Active Reported Isosorbide Mononitrate Er (Isosorbide Mononitrate) 60 Mg Tab.er.24h 1 Tab PO DAILY Simvastatin 20 Mg Tablet 20 Mg PO DAILY Carvedilol 25 Mg Tablet 25 Mg PO BID Aspir 81 (Aspirin) 81 Mg Tablet.dr 1 Tab PO HS Lisinopril 20 Mg Tablet 1 Tab PO DAILY Levothyroxine Sodium 25 Mcg Tablet 1 Tab PO DAILY Clopidogrel (Clopidogrel Bisulfate) 75 Mg Tablet 1 Tab PO DAILY Diazepam 2 Mg Tablet 2 Mg PO PRN TID PRN Trazodone Hcl 50 Mg Tablet 1 Tab PO QHS Vitals/I & O Vital Sign - Last 24 Hours 07/17/16 07/17/16 07/17/16 07/17/16 12:44 13:10 13:34 14:01 Pulse 76 74 75 69 Resp 20 24 22 28 B/P 194/72 143/85 137/72 132/65 Pulse Ox 97 96 95 94 O2 Delivery Room Air Room Air Room Air Room Air 4/16/07/17/16 07/17/16 07/17/16 14:30 15:02 15:17 15:45 Pulse 73 79 78 95 Resp 23 25 26 16 B/P 129/73 154/63 160/69 106/67 Pulse Ox 95 96 94 96 O2 Delivery Room Air Room Air Room Air Room Air 07/17/16 07/17/16 07/17/16 07/17/16 16:00 16:15 16:30 16:42 Temp 103.1 103.1 Pulse 96 88 86 Resp 19 21 20 B/P 160/80 146/76 142/80 Pulse Ox 95 93 95 O2 Delivery Room Air Room Air Room Air Room Air 07/17/16 07/17/16 07/17/16 07/17/16 17:00 17:30 18:00 19:00 Temp 101.5 101.5 Pulse 82 86 86 84 Resp 19 19 18 32 B/P 137/74 140/68 118/74 118/74 Pulse Ox 96 94 96 95 O2 Delivery Room Air Room Air Room Air Room Air 07/17/16 07/17/16 07/17/16 07/17/16 20:00 20:00 21:00 22:00 Temp 99.0 99.0 Pulse 88 80 75 Resp 31 35 37 B/P 143/67 133/58 134/56 Pulse Ox 91 95 93 O2 Delivery Room Air Room Air Room Air Room Air 07/17/16 07/17/16 07/18/16 07/18/16 23:00 23:59 00:00 01:00 Temp 101.7 101.7 Pulse 75 79 67 Resp 32 34 31 B/P 104/55 118/70 127/66 Pulse Ox 93 91 92 O2 Delivery Room Air Room Air Room Air Room Air 07/18/16 07/18/16 07/18/16 07/18/16 02:00 03:00 04:00 04:00 Temp 99.3 99.3 Pulse 62 71 75 Resp 24 33 36 B/P 134/65 133/67 141/70 Pulse Ox 92 97 96 O2 Delivery Nasal Cannula Nasal Cannula Nasal Cannula Room Air O2 Flow Rate 2.0 2.0 2.0 07/18/16 07/18/16 07/18/16 07/18/16 05:00 06:00 07:00 08:00 Temp 99.4 99.4 Pulse 60 51 69 50 Resp 34 35 27 28 B/P 116/85 116/60 129/65 117/73 Pulse Ox 98 98 94 93 O2 Delivery Nasal Cannula Nasal Cannula Nasal Cannula Nasal Cannula O2 Flow Rate 2.0 2.0 2.0 2.0 07/18/16 07/18/16 07/18/16 07/18/16 08:00 09:00 10:00 11:00 Pulse 52 62 66 Resp 27 27 24 B/P 111/60 129/64 133/64 Pulse Ox 96 97 96 O2 Delivery Room Air Nasal Cannula Nasal Cannula Nasal Cannula O2 Flow Rate 2.0 2.0 2.0 2.0 Intake and Output 07/17/16 07/17/16 07/18/16 14:59 22:59 06:59 Intake Total 1050 ml 1457 ml Output Total 525 ml 245 ml Balance 1050 ml -525 ml 1212 ml Nutrition Consultation Dietary Evaluation: Recommendations by RD: Increase Calorie Intake Comments: Rec. cardiac diet with boost plus BID when able to advance diet Expected Outcomes/Goals: diet advancement Interpretation of weight loss: >20% in 1 year Malnutrition Findings: Body Fat Depletion (Non Severe: Mild Depletion Weight Status: Appropriate TRESSA WILD MD Jul 18, 2016 12:31
[2016-07-18] MEDS ORDERED: IOHEXOL 300 MG/ML 75 ML VIAL IV ONE (15:15)
--- NOTE | 2016-07-18 20:33 | RAD ---
PROCEDURE Head MRI without contrast. HISTORY Subdural hematoma. TECHNIQUE Magnetic resonance angiography the head was performed without contrast. Three-dimensional [id number] and maximum intensity projection images were obtained. COMPARISON There is no prior study for comparison at the time of dictation. FINDINGS The exam is limited due to motion. Evaluation of the distal internal carotid arteries is nondiagnostic. The possibility of stenosis or an aneurysm is not excluded. The anterior communicating artery is patent. There is no evidence of stenosis or aneurysm involving the anterior, middle or posterior cerebral arteries. The distal right vertebral artery is not seen, likely due to hypoplasia, low flow or occlusion. The reported subdural hematoma is not well seen on angiographic images. There is no hydrocephalus. IMPRESSION 1. Significantly limited exam due to motion. The exam is essentially nondiagnostic for aneurysm. CT angiography may be useful of there is continuing concern for aneurysm or stenosis. 2. Nonvisualization of the distal right vertebral artery. This may be due to hypoplasia, low flow or occlusion. 3. Note is made that the reported subdural hematoma is not well seen on this angiographic exam. Head CT or brain MRI may be useful for characterization and to assess for interval change. PQRS Statement: NASCET criteria were utilized for this exam. Electronically signed by: Kareen Ferrell (Jul 18, 2016 20:33:05)
[2016-07-18] MEDS: FAMOTIDINE 20 MG TABLET. PO SCH (21:00)
--- NOTE | 2016-07-18 23:58 | CONS ---
DATE OF CONSULTATION: 07/18/2016 REASON FOR CONSULTATION: Subarachnoid hemorrhage. HISTORY OF PRESENT ILLNESS: The patient is a 66-year-old woman who has a history of frequent falls per her sister and she fell yesterday and brought to the Emergency Room for evaluation. She was noted to have blood that ____ across the posterior aspect of her head on arrival to the Emergency Room. She was awake in the Emergency Room, but not verbally responding appropriately. Images were obtained and she was admitted for further evaluation and treatment. This morning in the intensive care unit, she is awake and will say "yes or no to a few simple questions or else she simply won't answer." She will not follow commands. PAST MEDICAL HISTORY: Includes COPD, hypertension, and hypercholesterolemia. She saw neurologist last year because of problems with syncope. MEDICATIONS: See the MRAD. ALLERGIES: SHE IS ALLERGIC TO PENICILLIN AND AMOXICILLIN. CURRENT MEDICATIONS: Reviewed and are noncontributory. REVIEW OF SYSTEMS: Obtained from her sister who was relatively a poor historian, but a 12-point review of system was negative. PHYSICAL EXAMINATION: GENERAL APPEARANCE: The patient is supine in bed. She tends to want to lay on her left side, her eyes are open and she tracks appropriately. She will answer "yes or no to a few simple questions and then she simply won't answer." She will not follow commands. NEUROLOGIC: Her pupils are equal and reactive. Her gaze is conjugate. Her face is symmetric. Her speech sounded clear. There was no nuchal rigidity. On motor testing, she moved her upper and lower extremities equally with about 4/5 strength. There are 1+ reflexes without pathologic reflexes. The toes were downgoing. She responded to light touch in the upper and lower extremities appropriately. DIAGNOSTIC DATA: I reviewed CT scan of the head. On that study, there is some subarachnoid blood over the left posterior cerebral hemisphere. There is a small amount of interhemispheric blood associated with this. IMPRESSION: Almost certainly this is a traumatic subarachnoid hemorrhage. She is to have a followup CT today. She should have a CTA as part of her evaluation. KOBE BUSTOS MD DR: CHIO/suyapa JOB#: [id number] / [id number]
[2016-07-19] VITALS (19 sets, daily range): BP systolic 89–169; BP diastolic 46–87
[2016-07-19] MEDS: MEROPENEM 500 MG in IV NORMAL SALINE 50ML 50 ML IV SCH ×3 (04:35→21:22)
[2016-07-19] MEDS: CLINDAMYCIN 600MG PREMIX 50 ML IV SCH ×3 (05:26→21:58)
[2016-07-19] MEDS: LEVOTHYROXINE 25 MCG TABLET. PO SCH (05:26)
[2016-07-19] MEDS: POTASSIUM CHLORIDE 10 MEQ in IV 1/2 NORMAL SALINE 1,000 ML IV PRN (06:26)
[2016-07-19 06:48] LABS: BASO % 0 % (0-3); EOS % 0 % (0-3); HEMATOCRIT 36.3 % (36.0-47.0); HEMOGLOBIN 12.2 g/dL (12.0-15.5); LYMPH # 1.8 x10^3/uL (1.0-4.8); LYMPH % 17 % (24-48); MEAN CORPUSCULAR HEMOGLOBIN 33 pg (25-35); MEAN CORPUSCULAR HGB CONC 34 g/dL (31-37); MEAN CORPUSCULAR VOLUME 97 fL (79-100); MONO % 8 % (0-9); NEUT % 74 % (31-73); PLATELET COUNT 86 x10^3/uL (140-400); RED BLOOD COUNT 3.75 x10^6/uL (3.50-5.40); RED CELL DISTRIBUTION WIDTH 14.9 % (11.5-14.5); WHITE BLOOD COUNT 10.6 x10^3/uL (4.0-11.0)
[2016-07-19 07:20] LABS: GFR 55.1
[2016-07-19] MEDS: SIMVASTATIN 20 MG TABLET PO SCH (09:00)
[2016-07-19] MEDS: ISOSORBIDE MONONITRATE ER 30 MG TAB.ER.24H PO SCH (09:00)
[2016-07-19] MEDS: LISINOPRIL 20 MG TABLET PO SCH (09:00)
--- NOTE | 2016-07-19 10:12 | PDOC ---
PROGRESS NOTES Assessment Problems Medical Problems: (1) Altered mental status Status: Acute (2) Closed head injury Status: Acute (3) Dehydration Status: Acute (4) Subarachnoid hemorrhage Status: Acute traumatic subarachnoid hemorrhage history of syncope Possible prior dementia Plan Followup head CT tomorrow Okay to go to medical floor Supportive care Subjective She denies pain Objective Vital Signs Date Time Temp Pulse Resp B/P Pulse Ox O2 Delivery O2 Flow Rate FiO2 07/19/16 06:00 47 16 126/48 97 Nasal Cannula 2.0 07/19/16 05:00 98.6 98.6 Intake and Output 07/19/16 07:00 Intake Total 2312 ml Output Total 820 ml Balance 1492 ml Intake Oral 0 ml IV Total 2312 ml Output Urine Total 820 ml PHYSICAL EXAM Alert. Oriented to person. PERRL. EOMI. CN: no focal findings. Muscle tone: normal. Muscle strength: 4/5 DTR: 1+ Plantar reflex: flexor Gait: not examined in bed. Sensory exam: no abnormal findings. No cerebellar signs elicited. Review of Relevant I have reviewed the following items wesly (where applicable) has been applied. Labs Laboratory Tests Test 07/17/16 11:15 07/17/16 11:35 07/17/16 13:00 07/18/16 00:00 White Blood Count 11.3x10^3/uL (4.0-11.0) Red Blood Count 4.59x10^6/uL (3.50-5.40) Hemoglobin 14.8g/dL (12.0-15.5) Hematocrit 44.8% (36.0-47.0) Mean Corpuscular Volume 98fL (79-100) Mean Corpuscular Hemoglobin 32pg (25-35) Mean Corpuscular Hemoglobin Concent 33g/dL (31-37) Red Cell Distribution Width 15.4% (11.5-14.5) Platelet Count 147x10^3/uL (140-400) Neutrophils (%) (Auto) 81% (31-73) Lymphocytes (%) (Auto) 13% (24-48) Monocytes (%) (Auto) 6% (0-9) Eosinophils (%) (Auto) 0% (0-3) Basophils (%) (Auto) 0% (0-3) Neutrophils # (Auto) 9.1x10^3uL (1.8-7.7) Lymphocytes # (Auto) 1.5x10^3/uL (1.0-4.8) Monocytes # (Auto) 0.6x10^3/uL (0.0-1.1) Eosinophils # (Auto) 0.0x10^3/uL (0.0-0.7) Basophils # (Auto) 0.0x10^3/uL (0.0-0.2) Prothrombin Time 13.8SEC (11.7-14.0) Prothromb Time International Ratio 1.1 (0.8-1.1) Activated Partial Thromboplast Time 22SEC (24-38) Sodium Level 143mmol/L (136-145) Potassium Level 3.7mmol/L (3.5-5.1) Chloride Level 102mmol/L (98-107) Carbon Dioxide Level 24mmol/L (21-32) Anion Gap 17 (6-14) Blood Urea Nitrogen 39mg/dL (7-20) Creatinine 1.7mg/dL (0.6-1.0) Estimated GFR (Cockcroft-Gault) 29.9 BUN/Creatinine Ratio 23 (6-20) Glucose Level 123mg/dL (70-99) Lactic Acid Level 1.3mmol/L (0.4-2.0) Calcium Level 11.5mg/dL (8.5-10.1) Total Bilirubin 1.2mg/dL (0.2-1.0) Aspartate Amino Transf (AST/SGOT) 26U/L (15-37) Alanine Aminotransferase (ALT/SGPT) 36U/L (14-59) Alkaline Phosphatase 88U/L (46-116) Ammonia < 10mcmol/L (11-34) Troponin I Quantitative < 0.017ng/mL (0.000-0.055) US-Wqt-Y-Type Natriuretic Peptide 146pg/mL (0-124) Total Protein 6.8g/dL (6.4-8.2) Albumin 4.2g/dL (3.4-5.0) Albumin/Globulin Ratio 1.6 (1.0-1.7) Urine Collection Type U cath Urine Color Yellow Urine Clarity Clear Urine pH 5.5 Urine Specific [place] 1.020 Urine Protein Negativemg/dL (NEG-TRACE) Urine Glucose (UA) Negativemg/dL (NEG) Urine Ketones (Stick) 40mg/dL (NEG) Urine Blood Negative (NEG) Urine Nitrite Negative (NEG) Urine Bilirubin Moderate (NEG) Urine Urobilinogen Dipstick 0.2mg/dL (0.2 mg/dL) Urine Leukocyte Esterase Negative (NEG) Urine RBC 0/HPF (0-2) Urine WBC 0/HPF (0-4) Urine Squamous Epithelial Cells Few/LPF Urine Bacteria 0/HPF (0-FEW) Urine Opiates Screen Neg (NEG) Urine Methadone Screen Neg (NEG) Urine Barbiturates Neg (NEG) Urine Phencyclidine Screen Neg (NEG) Urine Amphetamine/Methamphetamine Neg (NEG) Urine Benzodiazepines Screen Pos (NEG) Urine Cocaine Screen Neg (NEG) Urine Cannabinoids Screen Neg (NEG) Urine Ethyl Alcohol Neg (NEG) Influenza Type A Antigen Negative (NEGATIVE) Influenza Type B Antigen Negative (NEGATIVE) Nasal Screen MRSA (PCR) Negative (Negative) Stool Occult Blood Negative (NEG) Test 07/18/16 06:10 07/18/16 19:50 07/19/16 06:33 White Blood Count 12.2x10^3/uL (4.0-11.0) 10.6x10^3/uL (4.0-11.0) Red Blood Count 3.97x10^6/uL (3.50-5.40) 3.75x10^6/uL (3.50-5.40) Hemoglobin 12.9g/dL (12.0-15.5) 12.2g/dL (12.0-15.5) Hematocrit 38.3% (36.0-47.0) 36.3% (36.0-47.0) Mean Corpuscular Volume 96fL (79-100) 97fL (79-100) Mean Corpuscular Hemoglobin 33pg (25-35) 33pg (25-35) Mean Corpuscular Hemoglobin Concent 34g/dL (31-37) 34g/dL (31-37) Red Cell Distribution Width 15.1% (11.5-14.5) 14.9% (11.5-14.5) Platelet Count 100x10^3/uL (140-400) 86x10^3/uL (140-400) Neutrophils (%) (Auto) 72% (31-73) 74% (31-73) Lymphocytes (%) (Auto) 18% (24-48) 17% (24-48) Monocytes (%) (Auto) 9% (0-9) 8% (0-9) Eosinophils (%) (Auto) 0% (0-3) 0% (0-3) Basophils (%) (Auto) 0% (0-3) 0% (0-3) Neutrophils # (Auto) 8.8x10^3uL (1.8-7.7) 7.9x10^3uL (1.8-7.7) Lymphocytes # (Auto) 2.2x10^3/uL (1.0-4.8) 1.8x10^3/uL (1.0-4.8) Monocytes # (Auto) 1.1x10^3/uL (0.0-1.1) 0.9x10^3/uL (0.0-1.1) Eosinophils # (Auto) 0.0x10^3/uL (0.0-0.7) 0.0x10^3/uL (0.0-0.7) Basophils # (Auto) 0.0x10^3/uL (0.0-0.2) 0.0x10^3/uL (0.0-0.2) Sodium Level 146mmol/L (136-145) 143mmol/L (136-145) Potassium Level 3.5mmol/L (3.5-5.1) 3.2mmol/L (3.5-5.1) 3.0mmol/L (3.5-5.1) Chloride Level 109mmol/L (98-107) 110mmol/L (98-107) Carbon Dioxide Level 25mmol/L (21-32) 24mmol/L (21-32) Anion Gap 12 (6-14) 9 (6-14) Blood Urea Nitrogen 35mg/dL (7-20) 26mg/dL (7-20) Creatinine 1.4mg/dL (0.6-1.0) 1.0mg/dL (0.6-1.0) Estimated GFR (Cockcroft-Gault) 37.4 55.1 Glucose Level 122mg/dL (70-99) 112mg/dL (70-99) Calcium Level 10.2mg/dL (8.5-10.1) 10.0mg/dL (8.5-10.1) Magnesium Level 1.5mg/dL (1.8-2.4) Laboratory Tests Test 07/18/16 19:50 07/19/16 06:33 Potassium Level 3.2mmol/L (3.5-5.1) 3.0mmol/L (3.5-5.1) White Blood Count 10.6x10^3/uL (4.0-11.0) Red Blood Count 3.75x10^6/uL (3.50-5.40) Hemoglobin 12.2g/dL (12.0-15.5) Hematocrit 36.3% (36.0-47.0) Mean Corpuscular Volume 97fL (79-100) Mean Corpuscular Hemoglobin 33pg (25-35) Mean Corpuscular Hemoglobin Concent 34g/dL (31-37) Red Cell Distribution Width 14.9% (11.5-14.5) Platelet Count 86x10^3/uL (140-400) Neutrophils (%) (Auto) 74% (31-73) Lymphocytes (%) (Auto) 17% (24-48) Monocytes (%) (Auto) 8% (0-9) Eosinophils (%) (Auto) 0% (0-3) Basophils (%) (Auto) 0% (0-3) Neutrophils # (Auto) 7.9x10^3uL (1.8-7.7) Lymphocytes # (Auto) 1.8x10^3/uL (1.0-4.8) Monocytes # (Auto) 0.9x10^3/uL (0.0-1.1) Eosinophils # (Auto) 0.0x10^3/uL (0.0-0.7) Basophils # (Auto) 0.0x10^3/uL (0.0-0.2) Sodium Level 143mmol/L (136-145) Chloride Level 110mmol/L (98-107) Carbon Dioxide Level 24mmol/L (21-32) Anion Gap 9 (6-14) Blood Urea Nitrogen 26mg/dL (7-20) Creatinine 1.0mg/dL (0.6-1.0) Estimated GFR (Cockcroft-Gault) 55.1 Glucose Level 112mg/dL (70-99) Calcium Level 10.0mg/dL (8.5-10.1) Magnesium Level 1.5mg/dL (1.8-2.4) Microbiology 07/17/16 Blood Culture - Preliminary, Resulted NO GROWTH AFTER 1 DAY Medications Current Medications Sodium Chloride 1,000 ml @ 1,000 mls/hr 1X ONCE IV Last administered on 11:46; Start 07/17/16 at 11:45; Stop 07/17/16 at 12:44; Status DC Levofloxacin/ Dextrose 150 ml @ 100 mls/hr 1X ONCE IV Last administered on 14:22; Start 07/17/16 at 13:45; Stop 07/17/16 at 15:14; Status DC Clindamycin Phosphate 50 ml @ 100 mls/hr Q8HRS IV Last administered on 05:26; Start 07/17/16 at 22:00 Clindamycin Phosphate (Cleocin 600 Mg Premix) 50 ml @ 100 mls/hr ONCE ONCE IV Last administered on 07/17/16 13:49; Start 07/17/16 at 13:45; Stop 07/17/16 at 19:13; Status DC Lidocaine/ Epinephrine (Let Topical) 3 ml 1X ONCE TP Last administered on 07/17 14:34; Start 07/17/16 at 14:30; Stop 07/17/16 at 14:31; Status DC Lidocaine/ Epinephrine (Xylocaine 1%-Epi 1:100,000) 20 ml 1X ONCE INJ Last administered on 07/17/16 14:37; Start 07/17/16 at 14:30; Stop 07/17/16 at 14:31 ; Status DC Tetanus/ Diphtheria Toxoids Adsorbed (Tenivac Syringe) 0.5 ml ONCE ONCE VAX IM Last administered on 07/17/16 14:37; Start 07/17/16 at 14:30; Stop 07/17/16 at 14:31; Status DC Ondansetron HCl (Zofran) 4 mg PRN Q8HRS PRN IV NAUSEA/VOMITING; Start 07/17/16 at 14:45; Stop 07/18/16 at 14:44; Status DC Acetaminophen (Tylenol) 650 mg PRN Q4HRS PRN PO FEVER; Start 07/17/16 at 14:45 ; Stop 07/18/16 at 14:44; Status DC Acetaminophen (Tylenol) 325 mg PRN Q6HRS PRN [place] MILD PAIN / TEMP; Start at 15:30 Acetaminophen (Tylenol) 325 mg 1X ONCE MN ; Start 07/17/16 at 15:30; Stop 07/17 at 15:31; Status DC Acetaminophen (Acetaminophen Supp) 650 mg STK-MED ONCE .ROUTE ; Start 07/17/16 at 15:21; Stop 07/17/16 at 15:22; Status DC Acetaminophen 650 mg 650 mg 1X ONCE MN Last administered on 07/17/16 15:27; Start 07/17/16 at 15:45; Stop 07/17/16 at 15:46; Status DC Sodium Chloride (Iv Sodium Chloride 0.9% 1000ml Bag) 1,000 ml @ 125 mls/hr 1X ONCE IV ; Start 07/17/16 at 15:45; Stop 07/17/16 at 23:44; Status DC Acetaminophen 650 mg 650 mg 1X ONCE [place] ; Start 07/17/16 at 15:30; Stop at 15:31; Status DC Sodium Chloride 1,000 ml @ 125 mls/hr Q8H IV Last administered on 07/17/16 18 :22; Start 07/17/16 at 17:30; Stop 07/17/16 at 19:13; Status DC Levetiracetam/ Sodium Chloride (Keppra/Iv Sodium Chloride 0.9% 100ml) 105 ml @ 400 mls/hr Q12HR IV Last administered on 07/18/16 21:25; Start 07/17/16 at 21: 00 Isosorbide Mononitrate (Imdur) 60 mg DAILY PO ; Start 07/18/16 at 09:00; Stop at 09:00; Status DC Levothyroxine Sodium (Synthroid) 25 mcg DAILY07 PO ; Start 07/18/16 at 09:00 Lisinopril (Prinivil) 20 mg DAILY PO ; Start 07/18/16 at 09:00 Simvastatin (Zocor) 20 mg DAILY PO ; Start 07/18/16 at 09:00 Isosorbide Mononitrate 60 mg 60 mg DAILY PO ; Start 07/18/16 at 09:00 Potassium Chloride 10 meq/ Sodium Chloride 1,005 ml @ 75 mls/hr [id number] PRN IV . Last administered on 07/19/16 06:26; Start 07/17/16 at 19:00 Meropenem/Sodium Chloride (Merrem/Iv Sodium Chloride 0.9% 50ml) 50 ml @ 100 mls /hr Q8H IV Last administered on 07/19/16t 04:35; Start 07/18/16 at 04:00 Famotidine (Pepcid) 20 mg QHS PO ; Start 07/18/16 at 21:00 Hydralazine HCl (Apresoline) 10 mg PRN Q4HRS PRN IVP ELEVATED BP, SEE COMMENTS ; Start 07/18/16 at 12:30 Ondansetron HCl (Zofran) 4 mg PRN Q6HRS PRN IV NAUSEA/VOMITING; Start 07/18/16 at 12:30 Iohexol 75 ml 75 ml 1X ONCE IV ; Start 07/18/16 at 15:15; Stop 07/18/16 at 15: 16; Status DC Potassium Chloride (KCl Premix 10meq) 100 ml @ 100 mls/hr Q1H IV ; Start at 09:00; Stop 07/19/16 at 12:59 Active Scripts Active Reported Isosorbide Mononitrate Er (Isosorbide Mononitrate) 60 Mg Tab.er.24h 1 Tab PO DAILY Simvastatin 20 Mg Tablet 20 Mg PO DAILY Carvedilol 25 Mg Tablet 25 Mg PO BID Aspir 81 (Aspirin) 81 Mg Tablet.dr 1 Tab PO HS Lisinopril 20 Mg Tablet 1 Tab PO DAILY Levothyroxine Sodium 25 Mcg Tablet 1 Tab PO DAILY Clopidogrel (Clopidogrel Bisulfate) 75 Mg Tablet 1 Tab PO DAILY Diazepam 2 Mg Tablet 2 Mg PO PRN TID PRN Trazodone Hcl 50 Mg Tablet 1 Tab PO QHS Vitals/I & O Vital Sign - Last 24 Hours 07/18/16 07/18/16 07/18/16 07/18/16 11:00 12:00 12:00 13:00 Temp 98.0 98.0 Pulse 66 58 58 Resp 24 24 24 B/P 133/64 114/63 133/76 Pulse Ox 96 96 96 O2 Delivery Nasal Cannula Room Air Nasal Cannula Nasal Cannula O2 Flow Rate 2.0 2.0 2.0 2.0 4/17/17 4/17/17 4/17/17 4/17/17 14:00 15:00 16:00 16:00 Temp 99.5 99.5 Pulse 48 53 48 Resp 24 24 B/P 137/66 113/83 113/53 Pulse Ox 96 96 97 O2 Delivery Nasal Cannula Nasal Cannula Nasal Cannula Room Air O2 Flow Rate 2.0 2.0 2.0 2.0 17/17 17/17 17/17 17 17:00 18:00 19:00 20:00 Pulse 64 54 62 Resp 28 27 28 B/P 98/38 120/77 155/68 Pulse Ox 97 98 95 O2 Delivery Nasal Cannula Nasal Cannula Nasal Cannula Nasal Cannula O2 Flow Rate 2.0 2.0 2.0 2.0 17/17 417/17 4/17/17 /17/17 20:00 21:00 22:00 23:00 Temp 98.3 98.3 Pulse 58 63 60 57 Resp 22 20 18 25 B/P 102/68 112/95 132/76 119/63 Pulse Ox 98 96 97 99 O2 Delivery Nasal Cannula Nasal Cannula Nasal Cannula Nasal Cannula O2 Flow Rate 2.0 2.0 2.0 2.0 418/17 4/18/17 4/18/17 418/17 00:00 00:00 01:00 02:00 Temp 98.6 98.6 Pulse 60 48 48 Resp 18 16 15 B/P 154/49 89/59 133/64 Pulse Ox 96 98 97 O2 Delivery Nasal Cannula Nasal Cannula Nasal Cannula Nasal Cannula O2 Flow Rate 2.0 2.0 2.0 2.0 4/18/17 4/18/17 4/18/17 4/18/17 03:00 04:00 04:00 05:00 Temp 98.6 98.6 Pulse 61 53 53 Resp 22 20 25 B/P 122/69 146/78 130/65 Pulse Ox 98 98 99 O2 Delivery Nasal Cannula Nasal Cannula Nasal Cannula Nasal Cannula O2 Flow Rate 2.0 2.0 2.0 2.0 07/19/16 06:00 Pulse 47 Resp 16 B/P 126/48 Pulse Ox 97 O2 Delivery Nasal Cannula O2 Flow Rate 2.0 Intake and Output 07/18/16 07/18/16 07/19/16 15:00 23:00 07:00 Intake Total 205 ml 999 ml 1108 ml Output Total 295 ml 330 ml 195 ml Balance -90 ml 669 ml 913 ml Images MRA head: 1. Significantly limited exam due to motion. The exam is essentially nondiagnostic for aneurysm. CT angiography may be useful of there is continuing concern for aneurysm or stenosis. 2. Nonvisualization of the distal right vertebral artery. This may be due to hypoplasia, low flow or occlusion. 3. Note is made that the reported subdural hematoma is not well seen on this angiographic exam. Head CT or brain MRI may be useful for characterization and to assess for interval change. NESTOR MOREL MD Jul 19, 2016 10:12
[2016-07-19] MEDS ORDERED: CONTRAST GIVEN MC PRN (10:15)
[2016-07-19] MEDS ORDERED: IOHEXOL 300 MG/ML 75 ML VIAL IV ONE (10:15)
[2016-07-19] MEDS: LEVETIRACETAM 500 MG in IV NORMAL SALINE 100ML 100 ML IV SCH ×2 (12:12→21:22)
--- NOTE | 2016-07-19 12:26 | PDOC ---
PROGRESS NOTES Chief Complaint Chief Complaint traumatic subarachnoid hemorrhage history of syncope Possible prior dementia h/o CAD hypothyroidism fever, 2/2 hemorrhage likely leukocytosis, reactive likely hypokalemia hypomagnesemia plan: fu with Neuro repeat MRI head 07/18,not conclusive CTA 07/19, CT 07/20 cont home meds, hold asa, plavix gi ppx cont iv abx for now, dc soon ok transfer out of ICU replete K, Mag still NOP, swallow eval fu History of Present Illness History of Present Illness more awake on 07/19, answer some questions, follow commands by squeezing hands knows in [place], but said it is 04/2015 Vitals Vitals Vital Signs Date Time Temp Pulse Resp B/P Pulse Ox O2 Delivery O2 Flow Rate FiO2 07/19/16 10:00 43 22 150/87 100 Nasal Cannula 2.0 07/19/16 08:00 99.5 99.5 Physical Exam Physical Exam more awake on 07/19, answer some questions, follow commands by squeezing hands knows in [place], but said it is 04/2015 General: Alert Heart: Regular rate, Normal S1, Normal S2 Lungs: Clear Abdomen: Normal bowel sounds, Soft Extremities: No clubbing, No cyanosis Skin: No rashes Labs LABS Laboratory Tests Test 07/18/16 19:50 07/19/16 06:33 Potassium Level 3.2mmol/L (3.5-5.1) 3.0mmol/L (3.5-5.1) White Blood Count 10.6x10^3/uL (4.0-11.0) Red Blood Count 3.75x10^6/uL (3.50-5.40) Hemoglobin 12.2g/dL (12.0-15.5) Hematocrit 36.3% (36.0-47.0) Mean Corpuscular Volume 97fL (79-100) Mean Corpuscular Hemoglobin 33pg (25-35) Mean Corpuscular Hemoglobin Concent 34g/dL (31-37) Red Cell Distribution Width 14.9% (11.5-14.5) Platelet Count 86x10^3/uL (140-400) Neutrophils (%) (Auto) 74% (31-73) Lymphocytes (%) (Auto) 17% (24-48) Monocytes (%) (Auto) 8% (0-9) Eosinophils (%) (Auto) 0% (0-3) Basophils (%) (Auto) 0% (0-3) Neutrophils # (Auto) 7.9x10^3uL (1.8-7.7) Lymphocytes # (Auto) 1.8x10^3/uL (1.0-4.8) Monocytes # (Auto) 0.9x10^3/uL (0.0-1.1) Eosinophils # (Auto) 0.0x10^3/uL (0.0-0.7) Basophils # (Auto) 0.0x10^3/uL (0.0-0.2) Sodium Level 143mmol/L (136-145) Chloride Level 110mmol/L (98-107) Carbon Dioxide Level 24mmol/L (21-32) Anion Gap 9 (6-14) Blood Urea Nitrogen 26mg/dL (7-20) Creatinine 1.0mg/dL (0.6-1.0) Estimated GFR (Cockcroft-Gault) 55.1 Glucose Level 112mg/dL (70-99) Calcium Level 10.0mg/dL (8.5-10.1) Magnesium Level 1.5mg/dL (1.8-2.4) Review of Systems Review of Systems no fever, chills, sob or chest pain Assessment and Plan Assessmemt and Plan Problems Medical Problems: (1) Altered mental status Status: Acute (2) Closed head injury Status: Acute (3) Dehydration Status: Acute (4) Subarachnoid hemorrhage Status: Acute Problems: Comment Review of Relevant I have reviewed the following items wesly (where applicable) has been applied. Labs Laboratory Tests Test 07/17/16 13:00 07/18/16 00:00 07/18/16 06:10 07/18/16 19:50 Influenza Type A Antigen Negative (NEGATIVE) Influenza Type B Antigen Negative (NEGATIVE) Nasal Screen MRSA (PCR) Negative (Negative) Stool Occult Blood Negative (NEG) White Blood Count 12.2x10^3/uL (4.0-11.0) Red Blood Count 3.97x10^6/uL (3.50-5.40) Hemoglobin 12.9g/dL (12.0-15.5) Hematocrit 38.3% (36.0-47.0) Mean Corpuscular Volume 96fL (79-100) Mean Corpuscular Hemoglobin 33pg (25-35) Mean Corpuscular Hemoglobin Concent 34g/dL (31-37) Red Cell Distribution Width 15.1% (11.5-14.5) Platelet Count 100x10^3/uL (140-400) Neutrophils (%) (Auto) 72% (31-73) Lymphocytes (%) (Auto) 18% (24-48) Monocytes (%) (Auto) 9% (0-9) Eosinophils (%) (Auto) 0% (0-3) Basophils (%) (Auto) 0% (0-3) Neutrophils # (Auto) 8.8x10^3uL (1.8-7.7) Lymphocytes # (Auto) 2.2x10^3/uL (1.0-4.8) Monocytes # (Auto) 1.1x10^3/uL (0.0-1.1) Eosinophils # (Auto) 0.0x10^3/uL (0.0-0.7) Basophils # (Auto) 0.0x10^3/uL (0.0-0.2) Sodium Level 146mmol/L (136-145) Potassium Level 3.5mmol/L (3.5-5.1) 3.2mmol/L (3.5-5.1) Chloride Level 109mmol/L (98-107) Carbon Dioxide Level 25mmol/L (21-32) Anion Gap 12 (6-14) Blood Urea Nitrogen 35mg/dL (7-20) Creatinine 1.4mg/dL (0.6-1.0) Estimated GFR (Cockcroft-Gault) 37.4 Glucose Level 122mg/dL (70-99) Calcium Level 10.2mg/dL (8.5-10.1) Test 07/19/16 06:33 White Blood Count 10.6x10^3/uL (4.0-11.0) Red Blood Count 3.75x10^6/uL (3.50-5.40) Hemoglobin 12.2g/dL (12.0-15.5) Hematocrit 36.3% (36.0-47.0) Mean Corpuscular Volume 97fL (79-100) Mean Corpuscular Hemoglobin 33pg (25-35) Mean Corpuscular Hemoglobin Concent 34g/dL (31-37) Red Cell Distribution Width 14.9% (11.5-14.5) Platelet Count 86x10^3/uL (140-400) Neutrophils (%) (Auto) 74% (31-73) Lymphocytes (%) (Auto) 17% (24-48) Monocytes (%) (Auto) 8% (0-9) Eosinophils (%) (Auto) 0% (0-3) Basophils (%) (Auto) 0% (0-3) Neutrophils # (Auto) 7.9x10^3uL (1.8-7.7) Lymphocytes # (Auto) 1.8x10^3/uL (1.0-4.8) Monocytes # (Auto) 0.9x10^3/uL (0.0-1.1) Eosinophils # (Auto) 0.0x10^3/uL (0.0-0.7) Basophils # (Auto) 0.0x10^3/uL (0.0-0.2) Sodium Level 143mmol/L (136-145) Potassium Level 3.0mmol/L (3.5-5.1) Chloride Level 110mmol/L (98-107) Carbon Dioxide Level 24mmol/L (21-32) Anion Gap 9 (6-14) Blood Urea Nitrogen 26mg/dL (7-20) Creatinine 1.0mg/dL (0.6-1.0) Estimated GFR (Cockcroft-Gault) 55.1 Glucose Level 112mg/dL (70-99) Calcium Level 10.0mg/dL (8.5-10.1) Magnesium Level 1.5mg/dL (1.8-2.4) Laboratory Tests Test 07/18/16 19:50 07/19/16 06:33 Potassium Level 3.2mmol/L (3.5-5.1) 3.0mmol/L (3.5-5.1) White Blood Count 10.6x10^3/uL (4.0-11.0) Red Blood Count 3.75x10^6/uL (3.50-5.40) Hemoglobin 12.2g/dL (12.0-15.5) Hematocrit 36.3% (36.0-47.0) Mean Corpuscular Volume 97fL (79-100) Mean Corpuscular Hemoglobin 33pg (25-35) Mean Corpuscular Hemoglobin Concent 34g/dL (31-37) Red Cell Distribution Width 14.9% (11.5-14.5) Platelet Count 86x10^3/uL (140-400) Neutrophils (%) (Auto) 74% (31-73) Lymphocytes (%) (Auto) 17% (24-48) Monocytes (%) (Auto) 8% (0-9) Eosinophils (%) (Auto) 0% (0-3) Basophils (%) (Auto) 0% (0-3) Neutrophils # (Auto) 7.9x10^3uL (1.8-7.7) Lymphocytes # (Auto) 1.8x10^3/uL (1.0-4.8) Monocytes # (Auto) 0.9x10^3/uL (0.0-1.1) Eosinophils # (Auto) 0.0x10^3/uL (0.0-0.7) Basophils # (Auto) 0.0x10^3/uL (0.0-0.2) Sodium Level 143mmol/L (136-145) Chloride Level 110mmol/L (98-107) Carbon Dioxide Level 24mmol/L (21-32) Anion Gap 9 (6-14) Blood Urea Nitrogen 26mg/dL (7-20) Creatinine 1.0mg/dL (0.6-1.0) Estimated GFR (Cockcroft-Gault) 55.1 Glucose Level 112mg/dL (70-99) Calcium Level 10.0mg/dL (8.5-10.1) Magnesium Level 1.5mg/dL (1.8-2.4) Microbiology 07/17/16 Blood Culture - Preliminary, Resulted NO GROWTH AFTER 2 DAYS Medications Current Medications Sodium Chloride 1,000 ml @ 1,000 mls/hr 1X ONCE IV Last administered on t 11:46; Start 07/17/16 at 11:45; Stop 07/17/16 at 12:44; Status DC Levofloxacin/ Dextrose 150 ml @ 100 mls/hr 1X ONCE IV Last administered on 14:22; Start 07/17/16 at 13:45; Stop 07/17/16 at 15:14; Status DC Clindamycin Phosphate 50 ml @ 100 mls/hr Q8HRS IV Last administered on 05:26; Start 07/17/16 at 22:00 Clindamycin Phosphate (Cleocin 600 Mg Premix) 50 ml @ 100 mls/hr ONCE ONCE IV Last administered on 07/17/16 13:49; Start 07/17/16 at 13:45; Stop 07/17/16 at 19:13; Status DC Lidocaine/ Epinephrine (Let Topical) 3 ml 1X ONCE TP Last administered on 07/17 14:34; Start 07/17/16 at 14:30; Stop 07/17/16 at 14:31; Status DC Lidocaine/ Epinephrine (Xylocaine 1%-Epi 1:100,000) 20 ml 1X ONCE INJ Last administered on 07/17/16 14:37; Start 07/17/16 at 14:30; Stop 07/17/16 at 14:31 ; Status DC Tetanus/ Diphtheria Toxoids Adsorbed (Tenivac Syringe) 0.5 ml ONCE ONCE VAX IM Last administered on 07/17/16 14:37; Start 07/17/16 at 14:30; Stop 07/17/16 at 14:31; Status DC Ondansetron HCl (Zofran) 4 mg PRN Q8HRS PRN IV NAUSEA/VOMITING; Start 07/17/16 at 14:45; Stop 07/18/16 at 14:44; Status DC Acetaminophen (Tylenol) 650 mg PRN Q4HRS PRN PO FEVER; Start 07/17/16 at 14:45 ; Stop 07/18/16 at 14:44; Status DC Acetaminophen (Tylenol) 325 mg PRN Q6HRS PRN [place] MILD PAIN / TEMP; Start at 15:30 Acetaminophen (Tylenol) 325 mg 1X ONCE [place] ; Start 07/17/16 at 15:30; Stop 07/17 at 15:31; Status DC Acetaminophen (Acetaminophen Supp) 650 mg STK-MED ONCE .ROUTE ; Start 07/17/16 at 15:21; Stop 07/17/16 at 15:22; Status DC Acetaminophen 650 mg 650 mg 1X ONCE [place] Last administered on 07/17/16 15:27; Start 07/17/16 at 15:45; Stop 07/17/16 at 15:46; Status DC Sodium Chloride (Iv Sodium Chloride 0.9% 1000ml Bag) 1,000 ml @ 125 mls/hr 1X ONCE IV ; Start 07/17/16 at 15:45; Stop 07/17/16 at 23:44; Status DC Acetaminophen 650 mg 650 mg 1X ONCE [place] ; Start 07/17/16 at 15:30; Stop at 15:31; Status DC Sodium Chloride 1,000 ml @ 125 mls/hr Q8H IV Last administered on 07/17/16 18 :22; Start 07/17/16 at 17:30; Stop 07/17/16 at 19:13; Status DC Levetiracetam/ Sodium Chloride (Keppra/Iv Sodium Chloride 0.9% 100ml) 105 ml @ 400 mls/hr Q12HR IV Last administered on 07/19/16 12:12; Start 07/17/16 at 21: 00 Isosorbide Mononitrate (Imdur) 60 mg DAILY PO ; Start 07/18/16 at 09:00; Stop at 09:00; Status DC Levothyroxine Sodium (Synthroid) 25 mcg DAILY07 PO ; Start 07/18/16 at 09:00 Lisinopril (Prinivil) 20 mg DAILY PO ; Start 07/18/16 at 09:00 Simvastatin (Zocor) 20 mg DAILY PO ; Start 07/18/16 at 09:00 Isosorbide Mononitrate 60 mg 60 mg DAILY PO ; Start 07/18/16 at 09:00 Potassium Chloride 10 meq/ Sodium Chloride 1,005 ml @ 75 mls/hr [id number] PRN IV . Last administered on 07/19/16 06:26; Start 07/17/16 at 19:00 Meropenem/Sodium Chloride (Merrem/Iv Sodium Chloride 0.9% 50ml) 50 ml @ 100 mls /hr Q8H IV Last administered on 07/19/16 04:35; Start 07/18/16 at 04:00 Famotidine (Pepcid) 20 mg QHS PO ; Start 07/18/16 at 21:00 Hydralazine HCl (Apresoline) 10 mg PRN Q4HRS PRN IVP ELEVATED BP, SEE COMMENTS ; Start 07/18/16 at 12:30 Ondansetron HCl (Zofran) 4 mg PRN Q6HRS PRN IV NAUSEA/VOMITING; Start 07/18/16 at 12:30 Iohexol 75 ml 75 ml 1X ONCE IV Last administered on 07/18/16t 15:15; Start at 15:15; Stop 07/18/16 at 15:16; Status DC Potassium Chloride (KCl Premix 10meq) 100 ml @ 100 mls/hr Q1H IV ; Start at 09:00; Stop 07/19/16 at 12:59 Iohexol (Omnipaque 300 Mg/ml) 75 ml 1X ONCE IV ; Start 07/19/16 at 10:15; Stop 07/19/16 at 10:17; Status DC Info (Do NOT chart on this entry -- for MONITORING) 1 each PRN DAILY PRN MC SEE COMMENTS; Start 07/19/16 at 10:15; Stop 07/21/16 at 10:14 Active Scripts Active Reported Isosorbide Mononitrate Er (Isosorbide Mononitrate) 60 Mg Tab.er.24h 1 Tab PO DAILY Simvastatin 20 Mg Tablet 20 Mg PO DAILY Carvedilol 25 Mg Tablet 25 Mg PO BID Aspir 81 (Aspirin) 81 Mg Tablet.dr 1 Tab PO HS Lisinopril 20 Mg Tablet 1 Tab PO DAILY Levothyroxine Sodium 25 Mcg Tablet 1 Tab PO DAILY Clopidogrel (Clopidogrel Bisulfate) 75 Mg Tablet 1 Tab PO DAILY Diazepam 2 Mg Tablet 2 Mg PO PRN TID PRN Trazodone Hcl 50 Mg Tablet 1 Tab PO QHS Vitals/I & O Vital Sign - Last 24 Hours 07/18/16 07/18/16 07/18/16 07/18/16 13:00 14:00 15:00 16:00 Temp 99.5 99.5 Pulse 58 48 53 48 Resp 24 24 24 24 B/P 133/76 137/66 113/83 113/53 Pulse Ox 96 96 96 97 O2 Delivery Nasal Cannula Nasal Cannula Nasal Cannula Nasal Cannula O2 Flow Rate 2.0 2.0 2.0 2.0 07/18/16 07/18/16 07/18/1607/18/17 16:00 17:00 18:00 19:00 Pulse 64 54 62 Resp 28 27 28 B/P 98/38 120/77 155/68 Pulse Ox 97 98 95 O2 Delivery Room Air Nasal Cannula Nasal Cannula Nasal Cannula O2 Flow Rate 2.0 2.0 2.0 2.0 07/18/16 07/18/16 07/18/16 07/18/16 20:00 20:00 21:00 22:00 Temp 98.3 98.3 Pulse 58 63 60 Resp 22 20 18 B/P 102/68 112/95 132/76 Pulse Ox 98 96 97 O2 Delivery Nasal Cannula Nasal Cannula Nasal Cannula Nasal Cannula O2 Flow Rate 2.0 2.0 2.0 2.0 07/18/16 07/19/16 07/19/16 07/19/16 23:00 00:00 00:00 01:00 Temp 98.6 98.6 Pulse 57 60 48 Resp 25 18 16 B/P 119/63 154/49 89/59 Pulse Ox 99 96 98 O2 Delivery Nasal Cannula Nasal Cannula Nasal Cannula Nasal Cannula O2 Flow Rate 2.0 2.0 2.0 2.0 07/19/16 07/19/1617 07/19/16 02:00 03:00 04:00 04:00 Pulse 48 61 53 Resp 15 22 20 B/P 133/64 122/69 146/78 Pulse Ox 97 98 98 O2 Delivery Nasal Cannula Nasal Cannula Nasal Cannula Nasal Cannula O2 Flow Rate 2.0 2.0 2.0 2.0 07/19/16 07/19/16 07/19/16 07/19/16 05:00 06:00 07:00 08:00 Temp 98.6 99.5 98.6 99.5 Pulse 53 47 60 60 Resp 25 16 16 24 B/P 130/65 126/48 124/60 131/70 Pulse Ox 99 97 95 96 O2 Delivery Nasal Cannula Nasal Cannula Nasal Cannula Nasal Cannula O2 Flow Rate 2.0 2.0 2.0 2.0 17 1817 17 08:00 09:00 10:00 Pulse 56 43 Resp 18 22 B/P 131/70 150/87 Pulse Ox 98 100 O2 Delivery Room Air Nasal Cannula Nasal Cannula O2 Flow Rate 2.0 2.0 2.0 Intake and Output 07/18/16 07/18/16 07/19/16 15:00 23:00 07:00 Intake Total 205 ml 999 ml 1108 ml Output Total 295 ml 330 ml 195 ml Balance -90 ml 669 ml 913 ml Nutrition Consultation Dietary Evaluation: Recommendations by RD: Increase Calorie Intake Comments: Rec. cardiac diet with boost plus BID when able to advance diet Expected Outcomes/Goals: diet advancement Interpretation of weight loss: >20% in 1 year Malnutrition Findings: Body Fat Depletion (Non Severe: Mild Depletion Weight Status: Appropriate TRESSA WILD MD Jul 19, 2016 12:26
[2016-07-19] MEDS ORDERED: MAGNESIUM SULFATE 2GM 50 ML IV ONE (13:00)
[2016-07-19] MEDS: POTASSIUM CHLORIDE 10MEQ 100 ML IV SCH ×4 (13:12→18:45)
--- NOTE | 2016-07-19 15:27 | RAD ---
CTA of the head with contrast, 07/19/2016: History: Possible aneurysm Multidetector CT imaging was performed following an IV bolus injection of iodinated contrast material. Multiplanar reconstructions were produced. There is mild calcific plaquing involving the cavernous segments of both distal internal carotid arteries without evidence of significant stenosis. Both vessels are widely patent up through the level of the [place]. The middle cerebral and anterior cerebral arteries and their major branches are unremarkable. There is no evidence of aneurysm. The left vertebral artery in the neck is dominant. The distal right vertebral artery is tiny but patent up through the basilar artery level. The basilar artery is tortuous but otherwise unremarkable. The posterior cerebral arteries and their major branches are unremarkable. There is a large posterior communicating artery on the right. IMPRESSION: 1. Mild calcific plaquing of the cavernous segments of the distal internal carotid arteries without evidence of significant stenosis. 2. Dominant left vertebral artery. 3. No evidence of intracranial aneurysm. PQRS Compliance Statement: One or more of the following individualized dose reduction techniques were utilized for this examination: 1. Automated exposure control 2. Adjustment of the mA and/or kV according to patient size 3. Use of iterative reconstruction technique
[2016-07-19] MEDS: FAMOTIDINE 20 MG TABLET. PO SCH (20:34)
[2016-07-20] MEDS: POTASSIUM CHLORIDE 10 MEQ in IV 1/2 NORMAL SALINE 1,000 ML IV PRN (02:51)
[2016-07-20 03:00] VITALS: BP 150/60
[2016-07-20] MEDS: MEROPENEM 500 MG in IV NORMAL SALINE 50ML 50 ML IV SCH ×3 (03:37→21:01)
[2016-07-20 04:32] LABS: BASO # 0.1 x10^3/uL (0.0-0.2); BASO % 1 % (0-3); EOS % 1 % (0-3); HEMATOCRIT 38.3 % (36.0-47.0); HEMOGLOBIN 12.6 g/dL (12.0-15.5); LYMPH # 1.9 x10^3/uL (1.0-4.8); LYMPH % 17 % (24-48); MEAN CORPUSCULAR HEMOGLOBIN 32 pg (25-35); MEAN CORPUSCULAR HGB CONC 33 g/dL (31-37); MEAN CORPUSCULAR VOLUME 97 fL (79-100); MONO % 6 % (0-9); NEUT % 76 % (31-73); PLATELET COUNT 92 x10^3/uL (140-400); RED BLOOD COUNT 3.96 x10^6/uL (3.50-5.40); WHITE BLOOD COUNT 11.2 x10^3/uL (4.0-11.0)
[2016-07-20 04:46] LABS: CALCIUM 9.8 mg/dL (8.5-10.1); CREATININE 0.9 mg/dL (0.6-1.0); GFR 62.3; POTASSIUM 3.8 mmol/L (3.5-5.1)
[2016-07-20] MEDS: CLINDAMYCIN 600MG PREMIX 50 ML IV SCH ×3 (05:38→22:12)
[2016-07-20 07:00] VITALS: BP 141/61
[2016-07-20] MEDS: LEVOTHYROXINE 25 MCG TABLET. PO SCH (07:00)
[2016-07-20] MEDS: ISOSORBIDE MONONITRATE ER 30 MG TAB.ER.24H PO SCH (09:00)
[2016-07-20] MEDS: LISINOPRIL 20 MG TABLET PO SCH (09:00)
[2016-07-20] MEDS: SIMVASTATIN 20 MG TABLET PO SCH (09:00)
--- NOTE | 2016-07-20 09:40 | RAD ---
CT of the head without contrast, 07/20/2016: History: Follow-up possible subarachnoid hemorrhage Comparison is made to a study from 07/17/2016. The ventricles are within normal limits in size. There is no shift of the midline structures. There is no evidence of mass effect. There are tiny unchanged foci of increased density along the surface of the brain in the left frontal lobe laterally and deep in the left sylvian fissure. This may represent tiny collections of subarachnoid blood as previously suggested or tiny petechial hemorrhages. No hemorrhage of significant size is seen. There is mild prominence of the subarachnoid space over the anterior aspects of the brain bilaterally compatible with atrophy. No subdural or epidural hemorrhage is seen. No new abnormality is detected. IMPRESSION: No significant change since 07/17/2016. PQRS Compliance Statement: One or more of the following individualized dose reduction techniques were utilized for this examination: 1. Automated exposure control 2. Adjustment of the mA and/or kV according to patient size 3. Use of iterative reconstruction technique
[2016-07-20] MEDS: LEVETIRACETAM 500 MG in IV NORMAL SALINE 100ML 100 ML IV SCH ×2 (09:43→21:37)
[2016-07-20 11:00] VITALS: BP 147/79
[2016-07-20] MEDS ORDERED: ALBUTEROL SULFATE 2.5 MG/3 ML NEBU. NEB PRN (11:15)
--- NOTE | 2016-07-20 11:17 | PDOC ---
PROGRESS NOTES Assessment Problems Medical Problems: (1) Altered mental status Status: Acute (2) Closed head injury Status: Acute (3) Dehydration Status: Acute (4) Subarachnoid hemorrhage Status: Acute traumatic subarachnoid hemorrhage history of syncope Possible prior dementia Plan Okay to go to [facility]U Supportive care Objective Vital Signs Date Time Temp Pulse Resp B/P Pulse Ox O2 Delivery O2 Flow Rate FiO2 07/20/16 07:00 97.4 50 22 141/61 98 Nasal Cannula 2.0 97.4 Intake and Output 07/20/16 07:00 Intake Total 698 ml Output Total 1105 ml Balance -407 ml Intake Oral 0 ml IV Total 698 ml Output Urine Total 1105 ml PHYSICAL EXAM Alert. Oriented to person. PERRL. EOMI. CN: no focal findings. Muscle tone: normal. Muscle strength: 4/5 DTR: 1+ Plantar reflex: flexor Gait: not examined in bed. Sensory exam: no abnormal findings. No cerebellar signs elicited. Review of Relevant I have reviewed the following items wesly (where applicable) has been applied. Labs Laboratory Tests Test 07/18/16 19:50 07/19/16 06:33 07/19/16 20:50 07/20/16 04:15 Potassium Level 3.2mmol/L (3.5-5.1) 3.0mmol/L (3.5-5.1) 3.9mmol/L (3.5-5.1) 3.8mmol/L (3.5-5.1) White Blood Count 10.6x10^3/uL (4.0-11.0) 11.2x10^3/uL (4.0-11.0) Red Blood Count 3.75x10^6/uL (3.50-5.40) 3.96x10^6/uL (3.50-5.40) Hemoglobin 12.2g/dL (12.0-15.5) 12.6g/dL (12.0-15.5) Hematocrit 36.3% (36.0-47.0) 38.3% (36.0-47.0) Mean Corpuscular Volume 97fL (79-100) 97fL (79-100) Mean Corpuscular Hemoglobin 33pg (25-35) 32pg (25-35) Mean Corpuscular Hemoglobin Concent 34g/dL (31-37) 33g/dL (31-37) Red Cell Distribution Width 14.9% (11.5-14.5) 15.0% (11.5-14.5) Platelet Count 86x10^3/uL (140-400) 92x10^3/uL (140-400) Neutrophils (%) (Auto) 74% (31-73) 76% (31-73) Lymphocytes (%) (Auto) 17% (24-48) 17% (24-48) Monocytes (%) (Auto) 8% (0-9) 6% (0-9) Eosinophils (%) (Auto) 0% (0-3) 1% (0-3) Basophils (%) (Auto) 0% (0-3) 1% (0-3) Neutrophils # (Auto) 7.9x10^3uL (1.8-7.7) 8.5x10^3uL (1.8-7.7) Lymphocytes # (Auto) 1.8x10^3/uL (1.0-4.8) 1.9x10^3/uL (1.0-4.8) Monocytes # (Auto) 0.9x10^3/uL (0.0-1.1) 0.7x10^3/uL (0.0-1.1) Eosinophils # (Auto) 0.0x10^3/uL (0.0-0.7) 0.1x10^3/uL (0.0-0.7) Basophils # (Auto) 0.0x10^3/uL (0.0-0.2) 0.1x10^3/uL (0.0-0.2) Sodium Level 143mmol/L (136-145) 144mmol/L (136-145) Chloride Level 110mmol/L (98-107) 110mmol/L (98-107) Carbon Dioxide Level 24mmol/L (21-32) 26mmol/L (21-32) Anion Gap 9 (6-14) 8 (6-14) Blood Urea Nitrogen 26mg/dL (7-20) 20mg/dL (7-20) Creatinine 1.0mg/dL (0.6-1.0) 0.9mg/dL (0.6-1.0) Estimated GFR (Cockcroft-Gault) 55.1 62.3 Glucose Level 112mg/dL (70-99) 92mg/dL (70-99) Calcium Level 10.0mg/dL (8.5-10.1) 9.8mg/dL (8.5-10.1) Magnesium Level 1.5mg/dL (1.8-2.4) 2.2mg/dL (1.8-2.4) 2.0mg/dL (1.8-2.4) Laboratory Tests Test 07/19/16 20:50 07/20/16 04:15 Potassium Level 3.9mmol/L (3.5-5.1) 3.8mmol/L (3.5-5.1) Magnesium Level 2.2mg/dL (1.8-2.4) 2.0mg/dL (1.8-2.4) White Blood Count 11.2x10^3/uL (4.0-11.0) Red Blood Count 3.96x10^6/uL (3.50-5.40) Hemoglobin 12.6g/dL (12.0-15.5) Hematocrit 38.3% (36.0-47.0) Mean Corpuscular Volume 97fL (79-100) Mean Corpuscular Hemoglobin 32pg (25-35) Mean Corpuscular Hemoglobin Concent 33g/dL (31-37) Red Cell Distribution Width 15.0% (11.5-14.5) Platelet Count 92x10^3/uL (140-400) Neutrophils (%) (Auto) 76% (31-73) Lymphocytes (%) (Auto) 17% (24-48) Monocytes (%) (Auto) 6% (0-9) Eosinophils (%) (Auto) 1% (0-3) Basophils (%) (Auto) 1% (0-3) Neutrophils # (Auto) 8.5x10^3uL (1.8-7.7) Lymphocytes # (Auto) 1.9x10^3/uL (1.0-4.8) Monocytes # (Auto) 0.7x10^3/uL (0.0-1.1) Eosinophils # (Auto) 0.1x10^3/uL (0.0-0.7) Basophils # (Auto) 0.1x10^3/uL (0.0-0.2) Sodium Level 144mmol/L (136-145) Chloride Level 110mmol/L (98-107) Carbon Dioxide Level 26mmol/L (21-32) Anion Gap 8 (6-14) Blood Urea Nitrogen 20mg/dL (7-20) Creatinine 0.9mg/dL (0.6-1.0) Estimated GFR (Cockcroft-Gault) 62.3 Glucose Level 92mg/dL (70-99) Calcium Level 9.8mg/dL (8.5-10.1) Microbiology 07/17/16 Blood Culture - Preliminary, Resulted NO GROWTH AFTER 2 DAYS Medications Current Medications Sodium Chloride 1,000 ml @ 1,000 mls/hr 1X ONCE IV Last administered on 11:46; Start 07/17/16 at 11:45; Stop 07/17/16 at 12:44; Status DC Levofloxacin/ Dextrose 150 ml @ 100 mls/hr 1X ONCE IV Last administered on 14:22; Start 07/17/16 at 13:45; Stop 07/17/16 at 15:14; Status DC Clindamycin Phosphate 50 ml @ 100 mls/hr Q8HRS IV Last administered on 05:38; Start 07/17/16 at 22:00 Clindamycin Phosphate (Cleocin 600 Mg Premix) 50 ml @ 100 mls/hr ONCE ONCE IV Last administered on 07/17/16 13:49; Start 07/17/16 at 13:45; Stop 07/17/16 at 19:13; Status DC Lidocaine/ Epinephrine (Let Topical) 3 ml 1X ONCE TP Last administered on 07/17 14:34; Start 07/17/16 at 14:30; Stop 07/17/16 at 14:31; Status DC Lidocaine/ Epinephrine (Xylocaine 1%-Epi 1:100,000) 20 ml 1X ONCE INJ Last administered on 07/17/16 14:37; Start 07/17/16 at 14:30; Stop 07/17/16 at 14:31 ; Status DC Tetanus/ Diphtheria Toxoids Adsorbed (Tenivac Syringe) 0.5 ml ONCE ONCE VAX IM Last administered on 07/17/16 14:37; Start 07/17/16 at 14:30; Stop 07/17/16 at 14:31; Status DC Ondansetron HCl (Zofran) 4 mg PRN Q8HRS PRN IV NAUSEA/VOMITING; Start 07/17/16 at 14:45; Stop 07/18/16 at 14:44; Status DC Acetaminophen (Tylenol) 650 mg PRN Q4HRS PRN PO FEVER; Start 07/17/16 at 14:45 ; Stop 07/18/16 at 14:44; Status DC Acetaminophen (Tylenol) 325 mg PRN Q6HRS PRN AL MILD PAIN / TEMP; Start at 15:30 Acetaminophen (Tylenol) 325 mg 1X ONCE AL ; Start 07/17/16 at 15:30; Stop 07/17 at 15:31; Status DC Acetaminophen (Acetaminophen Supp) 650 mg STK-MED ONCE .ROUTE ; Start 07/17/16 at 15:21; Stop 07/17/16 at 15:22; Status DC Acetaminophen 650 mg 650 mg 1X ONCE AL Last administered on 07/17/16 15:27; Start 07/17/16 at 15:45; Stop 07/17/16 at 15:46; Status DC Sodium Chloride (Iv Sodium Chloride 0.9% 1000ml Bag) 1,000 ml @ 125 mls/hr 1X ONCE IV ; Start 07/17/16 at 15:45; Stop 07/17/16 at 23:44; Status DC Acetaminophen 650 mg 650 mg 1X ONCE AL ; Start 07/17/16 at 15:30; Stop at 15:31; Status DC Sodium Chloride 1,000 ml @ 125 mls/hr Q8H IV Last administered on 07/17/16 18 :22; Start 07/17/16 at 17:30; Stop 07/17/16 at 19:13; Status DC Levetiracetam/ Sodium Chloride (Keppra/Iv Sodium Chloride 0.9% 100ml) 105 ml @ 400 mls/hr Q12HR IV Last administered on 07/20/16 09:43; Start 07/17/16 at 21: 00 Isosorbide Mononitrate (Imdur) 60 mg DAILY PO ; Start 07/18/16 at 09:00; Stop at 09:00; Status DC Levothyroxine Sodium (Synthroid) 25 mcg DAILY07 PO ; Start 07/18/16 at 09:00 Lisinopril (Prinivil) 20 mg DAILY PO ; Start 07/18/16 at 09:00 Simvastatin (Zocor) 20 mg DAILY PO ; Start 07/18/16 at 09:00 Isosorbide Mononitrate 60 mg 60 mg DAILY PO ; Start 07/18/16 at 09:00 Potassium Chloride 10 meq/ Sodium Chloride 1,005 ml @ 75 mls/hr [id number] PRN IV . Last administered on 07/20/16 02:51; Start 07/17/16 at 19:00; Stop 07/20/16 at 11:14; Status DC Meropenem/Sodium Chloride (Merrem/Iv Sodium Chloride 0.9% 50ml) 50 ml @ 100 mls /hr Q8H IV Last administered on 07/20/16 03:37; Start 07/18/16 at 04:00 Famotidine (Pepcid) 20 mg QHS PO ; Start 07/18/16 at 21:00 Hydralazine HCl (Apresoline) 10 mg PRN Q4HRS PRN IVP ELEVATED BP, SEE COMMENTS ; Start 07/18/16 at 12:30 Ondansetron HCl (Zofran) 4 mg PRN Q6HRS PRN IV NAUSEA/VOMITING; Start 07/18/16 at 12:30 Iohexol 75 ml 75 ml 1X ONCE IV Last administered on 07/18/16 15:15; Start at 15:15; Stop 07/18/16 at 15:16; Status DC Potassium Chloride (KCl Premix 10meq) 100 ml @ 100 mls/hr Q1H IV Last administered on 07/19/16 18:45; Start 07/19/16 at 09:00; Stop 07/19/16 at 12:59 ; Status DC Iohexol (Omnipaque 300 Mg/ml) 75 ml 1X ONCE IV ; Start 07/19/16 at 10:15; Stop 07/19/16 at 10:17; Status DC Info 1 each 1 each PRN DAILY PRN MC SEE COMMENTS; Start 07/19/16 at 10:15; Stop 07/21/16 at 10:14 Magnesium Sulfate/ Dextrose 50 ml @ 25 mls/hr 1X ONCE IV Last administered on 07/19/16t 14:10; Start 07/19/16 at 13:00; Stop 07/19/16 at 14:59; Status DC Amino Acids/ Glycerin/ Electrolytes (Procalamine) 1,000 ml @ 80 mls/hr [id number] IV ; Start 07/20/16 at 11:15; Status UNV Albuterol/ Ipratropium (Duoneb) 3 ml RTQID NEB ; Start 07/20/16 at 12:00; Status UNV Albuterol Sulfate (Ventolin Neb Soln) 2.5 mg PRN Q4HRS PRN NEB SHORTNESS OF BREATH; Start 07/20/16 at 11:15; Status UNV Active Scripts Active Reported Isosorbide Mononitrate Er (Isosorbide Mononitrate) 60 Mg Tab.er.24h 1 Tab PO DAILY Simvastatin 20 Mg Tablet 20 Mg PO DAILY Carvedilol 25 Mg Tablet 25 Mg PO BID Aspir 81 (Aspirin) 81 Mg Tablet.dr 1 Tab PO HS Lisinopril 20 Mg Tablet 1 Tab PO DAILY Levothyroxine Sodium 25 Mcg Tablet 1 Tab PO DAILY Clopidogrel (Clopidogrel Bisulfate) 75 Mg Tablet 1 Tab PO DAILY Diazepam 2 Mg Tablet 2 Mg PO PRN TID PRN Trazodone Hcl 50 Mg Tablet 1 Tab PO QHS Vitals/I & O Vital Sign - Last 24 Hours 07/19/16 07/19/16 07/19/16 07/19/16 12:00 13:00 14:00 15:00 Pulse 47 51 52 Resp 22 20 20 B/P 125/84 152/83 128/69 Pulse Ox 97 99 85 O2 Delivery Room Air Nasal Cannula Nasal Cannula Nasal Cannula O2 Flow Rate 2.0 2.0 2.0 2.0 07/19/16 07/19/16 07/19/16 07/19/16 16:00 17:00 18:03 19:00 Temp 97.9 98.0 97.9 98.0 Pulse 46 48 53 52 Resp 20 20 20 20 B/P 125/46 150/85 150/76 169/84 Pulse Ox 99 100 99 100 O2 Delivery Nasal Cannula Nasal Cannula Nasal Cannula Nasal Cannula O2 Flow Rate 2.0 2.0 2.0 2.0 07/19/16 07/19/16 07/20/16 07/20/16 20:05 23:00 03:00 07:00 Temp 98.0 98.2 97.4 98.0 98.2 97.4 Pulse 51 50 50 Resp 17 17 22 B/P 153/63 150/60 141/61 Pulse Ox 97 98 98 O2 Delivery Room Air Nasal Cannula Nasal Cannula Nasal Cannula O2 Flow Rate 2.0 2.0 2.0 Intake and Output 07/19/16 07/19/16 07/20/16 15:00 23:00 07:00 Intake Total 0 ml 698 ml Output Total 455 ml 150 ml 500 ml Balance -455 ml -150 ml 198 ml Images CTA of the head with contrast, 07/19/2016: History: Possible aneurysm Multidetector CT imaging was performed following an IV bolus injection of iodinated contrast material. Multiplanar reconstructions were produced. There is mild calcific plaquing involving the cavernous segments of both distal internal carotid arteries without evidence of significant stenosis. Both vessels are widely patent up through the level of the [place]. The middle cerebral and anterior cerebral arteries and their major branches are unremarkable. There is no evidence of aneurysm. The left vertebral artery in the neck is dominant. The distal right vertebral artery is tiny but patent up through the basilar artery level. The basilar artery is tortuous but otherwise unremarkable. The posterior cerebral arteries and their major branches are unremarkable. There is a large posterior communicating artery on the right. IMPRESSION: 1. Mild calcific plaquing of the cavernous segments of the distal internal carotid arteries without evidence of significant stenosis. 2. Dominant left vertebral artery. 3. No evidence of intracranial aneurysm. CT of the head without contrast, 07/20/2016: History: Follow-up possible subarachnoid hemorrhage Comparison is made to a study from 07/17/2016. The ventricles are within normal limits in size. There is no shift of the midline structures. There is no evidence of mass effect. There are tiny unchanged foci of increased density along the surface of the brain in the left frontal lobe laterally and deep in the left sylvian fissure. This may represent tiny collections of subarachnoid blood as previously suggested or tiny petechial hemorrhages. No hemorrhage of significant size is seen. There is mild prominence of the subarachnoid space over the anterior aspects of the brain bilaterally compatible with atrophy. No subdural or epidural hemorrhage is seen. No new abnormality is detected. IMPRESSION: No significant change since 07/17/2016. NESTOR MOREL MD Jul 20, 2016 11:17
[2016-07-20] MEDS: AMINO AC 3%/ELECTROLYTE/GLYCER 1,000 ML IV SCH ×2 (12:34→23:45)
--- NOTE | 2016-07-20 13:28 | PDOC ---
PROGRESS NOTES Chief Complaint Chief Complaint traumatic subarachnoid hemorrhage history of syncope Possible prior dementia h/o CAD hypothyroidism fever, 2/2 hemorrhage likely leukocytosis, reactive likely hypokalemia hypomagnesemia plan: fu with Neuro repeat MRI head 07/18,not conclusive CTA 07/19, CT 07/20, neg aneurysm cont home meds, hold asa, plavix gi ppx cont iv abx for now, dc soon PTOT replete K, Mag still NOP, swallow eval fu add PPN CHECK tsh, vitb12, add synthroid iv for now remove ghotra on 1 to 1 ob History of Present Illness History of Present Illness more awake on 07/19, answer some questions, follow commands by squeezing hands knows in [place], but said it is 04/2015 looks flat able to walk with help Vitals Vitals Vital Signs Date Time Temp Pulse Resp B/P Pulse Ox O2 Delivery O2 Flow Rate FiO2 07/20/16 11:00 56 22 147/79 93 Room Air 07/20/16 07:00 97.4 2.0 97.4 Physical Exam Physical Exam more awake on 07/19, answer some questions, follow commands by squeezing hands knows in [place], but said it is 04/2015 General: Alert Heart: Regular rate, Normal S1, Normal S2 Lungs: Clear Abdomen: Normal bowel sounds, Soft Extremities: No clubbing, No cyanosis Skin: No rashes Labs LABS Laboratory Tests Test 07/19/16 20:50 07/20/16 04:15 Potassium Level 3.9mmol/L (3.5-5.1) 3.8mmol/L (3.5-5.1) Magnesium Level 2.2mg/dL (1.8-2.4) 2.0mg/dL (1.8-2.4) White Blood Count 11.2x10^3/uL (4.0-11.0) Red Blood Count 3.96x10^6/uL (3.50-5.40) Hemoglobin 12.6g/dL (12.0-15.5) Hematocrit 38.3% (36.0-47.0) Mean Corpuscular Volume 97fL (79-100) Mean Corpuscular Hemoglobin 32pg (25-35) Mean Corpuscular Hemoglobin Concent 33g/dL (31-37) Red Cell Distribution Width 15.0% (11.5-14.5) Platelet Count 92x10^3/uL (140-400) Neutrophils (%) (Auto) 76% (31-73) Lymphocytes (%) (Auto) 17% (24-48) Monocytes (%) (Auto) 6% (0-9) Eosinophils (%) (Auto) 1% (0-3) Basophils (%) (Auto) 1% (0-3) Neutrophils # (Auto) 8.5x10^3uL (1.8-7.7) Lymphocytes # (Auto) 1.9x10^3/uL (1.0-4.8) Monocytes # (Auto) 0.7x10^3/uL (0.0-1.1) Eosinophils # (Auto) 0.1x10^3/uL (0.0-0.7) Basophils # (Auto) 0.1x10^3/uL (0.0-0.2) Sodium Level 144mmol/L (136-145) Chloride Level 110mmol/L (98-107) Carbon Dioxide Level 26mmol/L (21-32) Anion Gap 8 (6-14) Blood Urea Nitrogen 20mg/dL (7-20) Creatinine 0.9mg/dL (0.6-1.0) Estimated GFR (Cockcroft-Gault) 62.3 Glucose Level 92mg/dL (70-99) Calcium Level 9.8mg/dL (8.5-10.1) Review of Systems Review of Systems no fever, chills, sob or chest pain Assessment and Plan Assessmemt and Plan Problems Medical Problems: (1) Altered mental status Status: Acute (2) Closed head injury Status: Acute (3) Dehydration Status: Acute (4) Subarachnoid hemorrhage Status: Acute Problems: Comment Review of Relevant I have reviewed the following items wesly (where applicable) has been applied. Labs Laboratory Tests Test 07/18/16 19:50 07/19/16 06:33 07/19/16 20:50 07/20/16 04:15 Potassium Level 3.2mmol/L (3.5-5.1) 3.0mmol/L (3.5-5.1) 3.9mmol/L (3.5-5.1) 3.8mmol/L (3.5-5.1) White Blood Count 10.6x10^3/uL (4.0-11.0) 11.2x10^3/uL (4.0-11.0) Red Blood Count 3.75x10^6/uL (3.50-5.40) 3.96x10^6/uL (3.50-5.40) Hemoglobin 12.2g/dL (12.0-15.5) 12.6g/dL (12.0-15.5) Hematocrit 36.3% (36.0-47.0) 38.3% (36.0-47.0) Mean Corpuscular Volume 97fL (79-100) 97fL (79-100) Mean Corpuscular Hemoglobin 33pg (25-35) 32pg (25-35) Mean Corpuscular Hemoglobin Concent 34g/dL (31-37) 33g/dL (31-37) Red Cell Distribution Width 14.9% (11.5-14.5) 15.0% (11.5-14.5) Platelet Count 86x10^3/uL (140-400) 92x10^3/uL (140-400) Neutrophils (%) (Auto) 74% (31-73) 76% (31-73) Lymphocytes (%) (Auto) 17% (24-48) 17% (24-48) Monocytes (%) (Auto) 8% (0-9) 6% (0-9) Eosinophils (%) (Auto) 0% (0-3) 1% (0-3) Basophils (%) (Auto) 0% (0-3) 1% (0-3) Neutrophils # (Auto) 7.9x10^3uL (1.8-7.7) 8.5x10^3uL (1.8-7.7) Lymphocytes # (Auto) 1.8x10^3/uL (1.0-4.8) 1.9x10^3/uL (1.0-4.8) Monocytes # (Auto) 0.9x10^3/uL (0.0-1.1) 0.7x10^3/uL (0.0-1.1) Eosinophils # (Auto) 0.0x10^3/uL (0.0-0.7) 0.1x10^3/uL (0.0-0.7) Basophils # (Auto) 0.0x10^3/uL (0.0-0.2) 0.1x10^3/uL (0.0-0.2) Sodium Level 143mmol/L (136-145) 144mmol/L (136-145) Chloride Level 110mmol/L (98-107) 110mmol/L (98-107) Carbon Dioxide Level 24mmol/L (21-32) 26mmol/L (21-32) Anion Gap 9 (6-14) 8 (6-14) Blood Urea Nitrogen 26mg/dL (7-20) 20mg/dL (7-20) Creatinine 1.0mg/dL (0.6-1.0) 0.9mg/dL (0.6-1.0) Estimated GFR (Cockcroft-Gault) 55.1 62.3 Glucose Level 112mg/dL (70-99) 92mg/dL (70-99) Calcium Level 10.0mg/dL (8.5-10.1) 9.8mg/dL (8.5-10.1) Magnesium Level 1.5mg/dL (1.8-2.4) 2.2mg/dL (1.8-2.4) 2.0mg/dL (1.8-2.4) Laboratory Tests Test 07/19/16 20:50 07/20/16 04:15 Potassium Level 3.9mmol/L (3.5-5.1) 3.8mmol/L (3.5-5.1) Magnesium Level 2.2mg/dL (1.8-2.4) 2.0mg/dL (1.8-2.4) White Blood Count 11.2x10^3/uL (4.0-11.0) Red Blood Count 3.96x10^6/uL (3.50-5.40) Hemoglobin 12.6g/dL (12.0-15.5) Hematocrit 38.3% (36.0-47.0) Mean Corpuscular Volume 97fL (79-100) Mean Corpuscular Hemoglobin 32pg (25-35) Mean Corpuscular Hemoglobin Concent 33g/dL (31-37) Red Cell Distribution Width 15.0% (11.5-14.5) Platelet Count 92x10^3/uL (140-400) Neutrophils (%) (Auto) 76% (31-73) Lymphocytes (%) (Auto) 17% (24-48) Monocytes (%) (Auto) 6% (0-9) Eosinophils (%) (Auto) 1% (0-3) Basophils (%) (Auto) 1% (0-3) Neutrophils # (Auto) 8.5x10^3uL (1.8-7.7) Lymphocytes # (Auto) 1.9x10^3/uL (1.0-4.8) Monocytes # (Auto) 0.7x10^3/uL (0.0-1.1) Eosinophils # (Auto) 0.1x10^3/uL (0.0-0.7) Basophils # (Auto) 0.1x10^3/uL (0.0-0.2) Sodium Level 144mmol/L (136-145) Chloride Level 110mmol/L (98-107) Carbon Dioxide Level 26mmol/L (21-32) Anion Gap 8 (6-14) Blood Urea Nitrogen 20mg/dL (7-20) Creatinine 0.9mg/dL (0.6-1.0) Estimated GFR (Cockcroft-Gault) 62.3 Glucose Level 92mg/dL (70-99) Calcium Level 9.8mg/dL (8.5-10.1) Microbiology 07/17/16 Blood Culture - Preliminary, Resulted NO GROWTH AFTER 3 DAYS Medications Current Medications Sodium Chloride 1,000 ml @ 1,000 mls/hr 1X ONCE IV Last administered on 11:46; Start 07/17/16 at 11:45; Stop 07/17/16 at 12:44; Status DC Levofloxacin/ Dextrose 150 ml @ 100 mls/hr 1X ONCE IV Last administered on 14:22; Start 07/17/16 at 13:45; Stop 07/17/16 at 15:14; Status DC Clindamycin Phosphate 50 ml @ 100 mls/hr Q8HRS IV Last administered on 05:38; Start 07/17/16 at 22:00 Clindamycin Phosphate (Cleocin 600 Mg Premix) 50 ml @ 100 mls/hr ONCE ONCE IV Last administered on 07/17/16 13:49; Start 07/17/16 at 13:45; Stop 07/17/16 at 19:13; Status DC Lidocaine/ Epinephrine (Let Topical) 3 ml 1X ONCE TP Last administered on 07/17 14:34; Start 07/17/16 at 14:30; Stop 07/17/16 at 14:31; Status DC Lidocaine/ Epinephrine (Xylocaine 1%-Epi 1:100,000) 20 ml 1X ONCE INJ Last administered on 07/17/16 14:37; Start 07/17/16 at 14:30; Stop 07/17/16 at 14:31 ; Status DC Tetanus/ Diphtheria Toxoids Adsorbed (Tenivac Syringe) 0.5 ml ONCE ONCE VAX IM Last administered on 07/17/16 14:37; Start 07/17/16 at 14:30; Stop 07/17/16 at 14:31; Status DC Ondansetron HCl (Zofran) 4 mg PRN Q8HRS PRN IV NAUSEA/VOMITING; Start 07/17/16 at 14:45; Stop 07/18/16 at 14:44; Status DC Acetaminophen (Tylenol) 650 mg PRN Q4HRS PRN PO FEVER; Start 07/17/16 at 14:45 ; Stop 07/18/16 at 14:44; Status DC Acetaminophen (Tylenol) 325 mg PRN Q6HRS PRN DC MILD PAIN / TEMP; Start at 15:30 Acetaminophen (Tylenol) 325 mg 1X ONCE DC ; Start 07/17/16 at 15:30; Stop 07/17 at 15:31; Status DC Acetaminophen (Acetaminophen Supp) 650 mg STK-MED ONCE .ROUTE ; Start 07/17/16 at 15:21; Stop 07/17/16 at 15:22; Status DC Acetaminophen 650 mg 650 mg 1X ONCE DC Last administered on 07/17/16 15:27; Start 07/17/16 at 15:45; Stop 07/17/16 at 15:46; Status DC Sodium Chloride (Iv Sodium Chloride 0.9% 1000ml Bag) 1,000 ml @ 125 mls/hr 1X ONCE IV ; Start 07/17/16 at 15:45; Stop 07/17/16 at 23:44; Status DC Acetaminophen 650 mg 650 mg 1X ONCE DC ; Start 07/17/16 at 15:30; Stop at 15:31; Status DC Sodium Chloride 1,000 ml @ 125 mls/hr Q8H IV Last administered on 07/17/16 18 :22; Start 07/17/16 at 17:30; Stop 07/17/16 at 19:13; Status DC Levetiracetam/ Sodium Chloride (Keppra/Iv Sodium Chloride 0.9% 100ml) 105 ml @ 400 mls/hr Q12HR IV Last administered on 07/20/16 09:43; Start 07/17/16 at 21: 00 Isosorbide Mononitrate (Imdur) 60 mg DAILY PO ; Start 07/18/16 at 09:00; Stop at 09:00; Status DC Levothyroxine Sodium (Synthroid) 25 mcg DAILY07 PO ; Start 07/18/16 at 09:00 Lisinopril (Prinivil) 20 mg DAILY PO ; Start 07/18/16 at 09:00 Simvastatin (Zocor) 20 mg DAILY PO ; Start 07/18/16 at 09:00 Isosorbide Mononitrate 60 mg 60 mg DAILY PO ; Start 07/18/16 at 09:00 Potassium Chloride 10 meq/ Sodium Chloride 1,005 ml @ 75 mls/hr [id number] PRN IV . Last administered on 07/20/16 02:51; Start 07/17/16 at 19:00; Stop 07/20/16 at 11:14; Status DC Meropenem/Sodium Chloride (Merrem/Iv Sodium Chloride 0.9% 50ml) 50 ml @ 100 mls /hr Q8H IV Last administered on 07/20/16 12:33; Start 07/18/16 at 04:00 Famotidine (Pepcid) 20 mg QHS PO ; Start 07/18/16 at 21:00 Hydralazine HCl (Apresoline) 10 mg PRN Q4HRS PRN IVP ELEVATED BP, SEE COMMENTS ; Start 07/18/16 at 12:30 Ondansetron HCl (Zofran) 4 mg PRN Q6HRS PRN IV NAUSEA/VOMITING; Start 07/18/16 at 12:30 Iohexol 75 ml 75 ml 1X ONCE IV Last administered on 07/18/16 15:15; Start at 15:15; Stop 07/18/16 at 15:16; Status DC Potassium Chloride (KCl Premix 10meq) 100 ml @ 100 mls/hr Q1H IV Last administered on 07/19/16 18:45; Start 07/19/16 at 09:00; Stop 07/19/16 at 12:59 ; Status DC Iohexol (Omnipaque 300 Mg/ml) 75 ml 1X ONCE IV ; Start 07/19/16 at 10:15; Stop 07/19/16 at 10:17; Status DC Info 1 each 1 each PRN DAILY PRN MC SEE COMMENTS; Start 07/19/16 at 10:15; Stop 07/21/16 at 10:14 Magnesium Sulfate/ Dextrose 50 ml @ 25 mls/hr 1X ONCE IV Last administered on 07/19/16 14:10; Start 07/19/16 at 13:00; Stop 07/19/16 at 14:59; Status DC Amino Acids/ Glycerin/ Electrolytes (Procalamine) 1,000 ml @ 80 mls/hr [id number] IV Last administered on 07/20/16 12:34; Start 07/20/16 at 11:15 Albuterol/ Ipratropium (Duoneb) 3 ml RTQID NEB ; Start 07/20/16 at 12:00 Albuterol Sulfate (Ventolin Neb Soln) 2.5 mg PRN Q4HRS PRN NEB SHORTNESS OF BREATH; Start 07/20/16 at 11:15 Active Scripts Active Reported Isosorbide Mononitrate Er (Isosorbide Mononitrate) 60 Mg Tab.er.24h 1 Tab PO DAILY Simvastatin 20 Mg Tablet 20 Mg PO DAILY Carvedilol 25 Mg Tablet 25 Mg PO BID Aspir 81 (Aspirin) 81 Mg Tablet.dr 1 Tab PO HS Lisinopril 20 Mg Tablet 1 Tab PO DAILY Levothyroxine Sodium 25 Mcg Tablet 1 Tab PO DAILY Clopidogrel (Clopidogrel Bisulfate) 75 Mg Tablet 1 Tab PO DAILY Diazepam 2 Mg Tablet 2 Mg PO PRN TID PRN Trazodone Hcl 50 Mg Tablet 1 Tab PO QHS Vitals/I & O Vital Sign - Last 24 Hours 07/19/16 07/19/16 07/19/16 07/19/16 14:00 15:00 16:00 17:00 Pulse 51 52 46 48 Resp 20 20 20 20 B/P 152/83 128/69 125/46 150/85 Pulse Ox 99 85 99 100 O2 Delivery Nasal Cannula Nasal Cannula Nasal Cannula Nasal Cannula O2 Flow Rate 2.0 2.0 2.0 2.0 07/19/16 07/19/16 07/19/16 07/19/16 18:03 19:00 20:05 23:00 Temp 97.9 98.0 98.0 97.9 98.0 98.0 Pulse 53 52 51 Resp 17 B/P 150/76 169/84 153/63 Pulse Ox 99 100 97 O2 Delivery Nasal Cannula Nasal Cannula Room Air Nasal Cannula O2 Flow Rate 2.0 2.0 2.0 07/20/16 07/20/16 07/20/16 03:00 07:00 11:00 Temp 98.2 97.4 98.2 97.4 Pulse 50 50 56 Resp 22 B/P 150/60 141/61 147/79 Pulse Ox 98 98 93 O2 Delivery Nasal Cannula Nasal Cannula Room Air O2 Flow Rate 2.0 2.0 Intake and Output 07/19/16 07/19/16 07/20/16 15:00 23:00 07:00 Intake Total 0 ml 698 ml Output Total 455 ml 150 ml 500 ml Balance -455 ml -150 ml 198 ml Nutrition Consultation Dietary Evaluation: Recommendations by RD: Increase Calorie Intake Comments: Rec. cardiac diet with boost plus BID when able to advance diet Expected Outcomes/Goals: diet advancement Interpretation of weight loss: >20% in 1 year Malnutrition Findings: Body Fat Depletion (Non Severe: Mild Depletion Weight Status: Appropriate TRESSA WILD MD Jul 20, 2016 13:28
--- NOTE | 2016-07-20 14:43 | RAD ---
Portable chest, 07/20/2016: History: Cough Comparison is made to a study from 07/17/2016. The heart size and pulmonary vascularity are normal. There is calcific plaquing of the aorta. Scattered mild linear opacities have developed in the perihilar regions and lung bases compatible with atelectasis. No dense pulmonary consolidation is seen. There is no evidence of pleural fluid. IMPRESSION: Mild bilateral linear atelectasis.
[2016-07-20 15:00] VITALS: BP 159/93
[2016-07-20] MEDS: NORMAL SALINE IVP SCH (15:17)
[2016-07-20] MEDS: LEVOTHYROXINE SODIUM IVP SCH (15:17)
[2016-07-20] MEDS: IPRATRPIUM/ALBUTEROL 0.5/2.5MG 3 ML NEBU. NEB SCH ×3 (15:27→20:00)
[2016-07-20 19:00] VITALS: BP 153/85
[2016-07-20] MEDS: FAMOTIDINE 20 MG TABLET. PO SCH (21:04)
[2016-07-20 23:00] VITALS: BP 148/80
[2016-07-21 02:57] VITALS: BP 131/72
[2016-07-21] MEDS: MEROPENEM 500 MG in IV NORMAL SALINE 50ML 50 ML IV SCH ×2 (03:26→13:43)
[2016-07-21 04:49] LABS: BASO % 0 % (0-3); EOS % 1 % (0-3); HEMATOCRIT 40.2 % (36.0-47.0); HEMOGLOBIN 13.6 g/dL (12.0-15.5); LYMPH # 1.5 x10^3/uL (1.0-4.8); LYMPH % 12 % (24-48); MEAN CORPUSCULAR HEMOGLOBIN 33 pg (25-35); MEAN CORPUSCULAR HGB CONC 34 g/dL (31-37); MEAN CORPUSCULAR VOLUME 97 fL (79-100); MONO % 5 % (0-9); NEUT % 82 % (31-73); PLATELET COUNT 108 x10^3/uL (140-400); RED BLOOD COUNT 4.16 x10^6/uL (3.50-5.40); RED CELL DISTRIBUTION WIDTH 14.7 % (11.5-14.5); WHITE BLOOD COUNT 12.2 x10^3/uL (4.0-11.0)
[2016-07-21] MEDS: CLINDAMYCIN 600MG PREMIX 50 ML IV SCH ×2 (05:28→14:00)
[2016-07-21 05:31] LABS: CALCIUM 9.8 mg/dL (8.5-10.1); CREATININE 0.8 mg/dL (0.6-1.0); GFR 71.3; POTASSIUM 3.2 mmol/L (3.5-5.1)
[2016-07-21] MEDS: AMINO AC 3%/ELECTROLYTE/GLYCER 1,000 ML IV SCH (06:20)
[2016-07-21 07:00] VITALS: BP 177/65
[2016-07-21] MEDS: IPRATRPIUM/ALBUTEROL 0.5/2.5MG 3 ML NEBU. NEB SCH ×4 (07:45→19:36)
[2016-07-21] MEDS: ISOSORBIDE MONONITRATE ER 30 MG TAB.ER.24H PO SCH (09:00)
[2016-07-21] MEDS ORDERED: LEVOTHYROXINE SODIUM IVP SCH (09:00)
[2016-07-21] MEDS ORDERED: NORMAL SALINE IVP SCH (09:00)
[2016-07-21] MEDS: SIMVASTATIN 20 MG TABLET PO SCH (09:00)
[2016-07-21] MEDS: LISINOPRIL 20 MG TABLET PO SCH (09:00)
[2016-07-21] MEDS: LEVETIRACETAM 500 MG in IV NORMAL SALINE 100ML 100 ML IV SCH (09:08)
[2016-07-21] MEDS: NORMAL SALINE IVP SCH (09:09)
[2016-07-21] MEDS: LEVOTHYROXINE SODIUM IVP SCH (09:09)
--- NOTE | 2016-07-21 09:31 | PDOC ---
PROGRESS NOTES Assessment Problems Medical Problems: (1) Altered mental status Status: Acute (2) Closed head injury Status: Acute (3) Dehydration Status: Acute (4) Subarachnoid hemorrhage Status: Acute Traumatic subarachnoid hemorrhage History of syncope Possible prior dementia Plan Okay to go to [facility]U Supportive care Subjective Denies pain Objective Vital Signs Date Time Temp Pulse Resp B/P Pulse Ox O2 Delivery O2 Flow Rate FiO2 07/21/16 08:00 Room Air 07/21/16 07:47 96 07/21/16 07:00 97.7 74 18 177/65 97.7 07/20/16 08:00 2.0 Intake and Output 07/21/16 06:59 Intake Total 1300 ml Balance 1300 ml IV Total 1300 ml # Voids 8 # Bowel Movements 4 PHYSICAL EXAM Alert. Oriented to person, "hospital," knows month and year. PERRL. EOMI. CN: no focal findings. Muscle tone: normal. Muscle strength: 4/5 DTR: 1+ Plantar reflex: flexor Gait: not examined in bed. Sensory exam: no abnormal findings. No cerebellar signs elicited. Review of Relevant I have reviewed the following items wesly (where applicable) has been applied. Labs Laboratory Tests Test 07/19/16 20:50 07/20/16 04:15 07/21/16 03:42 Potassium Level 3.9mmol/L (3.5-5.1) 3.8mmol/L (3.5-5.1) 3.2mmol/L (3.5-5.1) Magnesium Level 2.2mg/dL (1.8-2.4) 2.0mg/dL (1.8-2.4) White Blood Count 11.2x10^3/uL (4.0-11.0) 12.2x10^3/uL (4.0-11.0) Red Blood Count 3.96x10^6/uL (3.50-5.40) 4.16x10^6/uL (3.50-5.40) Hemoglobin 12.6g/dL (12.0-15.5) 13.6g/dL (12.0-15.5) Hematocrit 38.3% (36.0-47.0) 40.2% (36.0-47.0) Mean Corpuscular Volume 97fL (79-100) 97fL (79-100) Mean Corpuscular Hemoglobin 32pg (25-35) 33pg (25-35) Mean Corpuscular Hemoglobin Concent 33g/dL (31-37) 34g/dL (31-37) Red Cell Distribution Width 15.0% (11.5-14.5) 14.7% (11.5-14.5) Platelet Count 92x10^3/uL (140-400) 108x10^3/uL (140-400) Neutrophils (%) (Auto) 76% (31-73) 82% (31-73) Lymphocytes (%) (Auto) 17% (24-48) 12% (24-48) Monocytes (%) (Auto) 6% (0-9) 5% (0-9) Eosinophils (%) (Auto) 1% (0-3) 1% (0-3) Basophils (%) (Auto) 1% (0-3) 0% (0-3) Neutrophils # (Auto) 8.5x10^3uL (1.8-7.7) 10.0x10^3uL (1.8-7.7) Lymphocytes # (Auto) 1.9x10^3/uL (1.0-4.8) 1.5x10^3/uL (1.0-4.8) Monocytes # (Auto) 0.7x10^3/uL (0.0-1.1) 0.6x10^3/uL (0.0-1.1) Eosinophils # (Auto) 0.1x10^3/uL (0.0-0.7) 0.1x10^3/uL (0.0-0.7) Basophils # (Auto) 0.1x10^3/uL (0.0-0.2) 0.0x10^3/uL (0.0-0.2) Sodium Level 144mmol/L (136-145) 144mmol/L (136-145) Chloride Level 110mmol/L (98-107) 109mmol/L (98-107) Carbon Dioxide Level 26mmol/L (21-32) 26mmol/L (21-32) Anion Gap 8 (6-14) 9 (6-14) Blood Urea Nitrogen 20mg/dL (7-20) 18mg/dL (7-20) Creatinine 0.9mg/dL (0.6-1.0) 0.8mg/dL (0.6-1.0) Estimated GFR (Cockcroft-Gault) 62.3 71.3 Glucose Level 92mg/dL (70-99) 112mg/dL (70-99) Calcium Level 9.8mg/dL (8.5-10.1) 9.8mg/dL (8.5-10.1) Vitamin B12 Level 448pg/mL (247-911) Thyroid Stimulating Hormone (TSH) 17.309uIU/mL (0.358-3.74) Laboratory Tests Test 07/21/16 03:42 White Blood Count 12.2x10^3/uL (4.0-11.0) Red Blood Count 4.16x10^6/uL (3.50-5.40) Hemoglobin 13.6g/dL (12.0-15.5) Hematocrit 40.2% (36.0-47.0) Mean Corpuscular Volume 97fL (79-100) Mean Corpuscular Hemoglobin 33pg (25-35) Mean Corpuscular Hemoglobin Concent 34g/dL (31-37) Red Cell Distribution Width 14.7% (11.5-14.5) Platelet Count 108x10^3/uL (140-400) Neutrophils (%) (Auto) 82% (31-73) Lymphocytes (%) (Auto) 12% (24-48) Monocytes (%) (Auto) 5% (0-9) Eosinophils (%) (Auto) 1% (0-3) Basophils (%) (Auto) 0% (0-3) Neutrophils # (Auto) 10.0x10^3uL (1.8-7.7) Lymphocytes # (Auto) 1.5x10^3/uL (1.0-4.8) Monocytes # (Auto) 0.6x10^3/uL (0.0-1.1) Eosinophils # (Auto) 0.1x10^3/uL (0.0-0.7) Basophils # (Auto) 0.0x10^3/uL (0.0-0.2) Sodium Level 144mmol/L (136-145) Potassium Level 3.2mmol/L (3.5-5.1) Chloride Level 109mmol/L (98-107) Carbon Dioxide Level 26mmol/L (21-32) Anion Gap 9 (6-14) Blood Urea Nitrogen 18mg/dL (7-20) Creatinine 0.8mg/dL (0.6-1.0) Estimated GFR (Cockcroft-Gault) 71.3 Glucose Level 112mg/dL (70-99) Calcium Level 9.8mg/dL (8.5-10.1) Vitamin B12 Level 448pg/mL (247-911) Thyroid Stimulating Hormone (TSH) 17.309uIU/mL (0.358-3.74) Microbiology 07/17/16 Blood Culture - Preliminary, Resulted NO GROWTH AFTER 3 DAYS Medications Current Medications Sodium Chloride 1,000 ml @ 1,000 mls/hr 1X ONCE IV Last administered on 11:46; Start 07/17/16 at 11:45; Stop 07/17/16 at 12:44; Status DC Levofloxacin/ Dextrose 150 ml @ 100 mls/hr 1X ONCE IV Last administered on 14:22; Start 07/17/16 at 13:45; Stop 07/17/16 at 15:14; Status DC Clindamycin Phosphate 50 ml @ 100 mls/hr Q8HRS IV Last administered on 05:28; Start 07/17/16 at 22:00 Clindamycin Phosphate (Cleocin 600 Mg Premix) 50 ml @ 100 mls/hr ONCE ONCE IV Last administered on 07/17/16 13:49; Start 07/17/16 at 13:45; Stop 07/17/16 at 19:13; Status DC Lidocaine/ Epinephrine (Let Topical) 3 ml 1X ONCE TP Last administered on 07/17 14:34; Start 07/17/16 at 14:30; Stop 07/17/16 at 14:31; Status DC Lidocaine/ Epinephrine (Xylocaine 1%-Epi 1:100,000) 20 ml 1X ONCE INJ Last administered on 07/17/16 14:37; Start 07/17/16 at 14:30; Stop 07/17/16 at 14:31 ; Status DC Tetanus/ Diphtheria Toxoids Adsorbed (Tenivac Syringe) 0.5 ml ONCE ONCE VAX IM Last administered on 07/17/16 14:37; Start 07/17/16 at 14:30; Stop 07/17/16 at 14:31; Status DC Ondansetron HCl (Zofran) 4 mg PRN Q8HRS PRN IV NAUSEA/VOMITING; Start 07/17/16 at 14:45; Stop 07/18/16 at 14:44; Status DC Acetaminophen (Tylenol) 650 mg PRN Q4HRS PRN PO FEVER; Start 07/17/16 at 14:45 ; Stop 07/18/16 at 14:44; Status DC Acetaminophen (Tylenol) 325 mg PRN Q6HRS PRN [place] MILD PAIN / TEMP; Start at 15:30 Acetaminophen (Tylenol) 325 mg 1X ONCE [place] ; Start 07/17/16 at 15:30; Stop 07/17 at 15:31; Status DC Acetaminophen (Acetaminophen Supp) 650 mg STK-MED ONCE .ROUTE ; Start 07/17/16 at 15:21; Stop 07/17/16 at 15:22; Status DC Acetaminophen 650 mg 650 mg 1X ONCE [place] Last administered on 07/17/16 15:27; Start 07/17/16 at 15:45; Stop 07/17/16 at 15:46; Status DC Sodium Chloride (Iv Sodium Chloride 0.9% 1000ml Bag) 1,000 ml @ 125 mls/hr 1X ONCE IV ; Start 07/17/16 at 15:45; Stop 07/17/16 at 23:44; Status DC Acetaminophen 650 mg 650 mg 1X ONCE [place] ; Start 07/17/16 at 15:30; Stop at 15:31; Status DC Sodium Chloride 1,000 ml @ 125 mls/hr Q8H IV Last administered on 07/17/16 18 :22; Start 07/17/16 at 17:30; Stop 07/17/16 at 19:13; Status DC Levetiracetam/ Sodium Chloride (Keppra/Iv Sodium Chloride 0.9% 100ml) 105 ml @ 400 mls/hr Q12HR IV Last administered on 07/21/16 09:08; Start 07/17/16 at 21: 00 Isosorbide Mononitrate (Imdur) 60 mg DAILY PO ; Start 07/18/16 at 09:00; Stop at 09:00; Status DC Levothyroxine Sodium (Synthroid) 25 mcg DAILY07 PO ; Start 07/18/16 at 09:00; Stop 07/20/16 at 13:27; Status DC Lisinopril (Prinivil) 20 mg DAILY PO ; Start 07/18/16 at 09:00 Simvastatin (Zocor) 20 mg DAILY PO ; Start 07/18/16 at 09:00 Isosorbide Mononitrate 60 mg 60 mg DAILY PO ; Start 07/18/16 at 09:00 Potassium Chloride 10 meq/ Sodium Chloride 1,005 ml @ 75 mls/hr [id number] PRN IV . Last administered on 07/20/16 02:51; Start 07/17/16 at 19:00; Stop 07/20/16 at 11:14; Status DC Meropenem/Sodium Chloride (Merrem/Iv Sodium Chloride 0.9% 50ml) 50 ml @ 100 mls /hr Q8H IV Last administered on 07/21/16 03:26; Start 07/18/16 at 04:00 Famotidine (Pepcid) 20 mg QHS PO ; Start 07/18/16 at 21:00 Hydralazine HCl (Apresoline) 10 mg PRN Q4HRS PRN IVP ELEVATED BP, SEE COMMENTS ; Start 07/18/16 at 12:30 Ondansetron HCl (Zofran) 4 mg PRN Q6HRS PRN IV NAUSEA/VOMITING; Start 07/18/16 at 12:30 Iohexol 75 ml 75 ml 1X ONCE IV Last administered on 07/18/16 15:15; Start at 15:15; Stop 07/18/16 at 15:16; Status DC Potassium Chloride (KCl Premix 10meq) 100 ml @ 100 mls/hr Q1H IV Last administered on 07/19/16 18:45; Start 07/19/16 at 09:00; Stop 07/19/16 at 12:59 ; Status DC Iohexol (Omnipaque 300 Mg/ml) 75 ml 1X ONCE IV ; Start 07/19/16 at 10:15; Stop 07/19/16 at 10:17; Status DC Info 1 each 1 each PRN DAILY PRN MC SEE COMMENTS; Start 07/19/16 at 10:15; Stop 07/21/16 at 10:14 Magnesium Sulfate/ Dextrose 50 ml @ 25 mls/hr 1X ONCE IV Last administered on 07/19/16 14:10; Start 07/19/16 at 13:00; Stop 07/19/16 at 14:59; Status DC Amino Acids/ Glycerin/ Electrolytes (Procalamine) 1,000 ml @ 80 mls/hr [id number] IV Last administered on 07/21/16 06:20; Start 07/20/16 at 11:15 Albuterol/ Ipratropium (Duoneb) 3 ml RTQID NEB Last administered on 07/21/16 07:45; Start 07/20/16 at 12:00 Albuterol Sulfate 2.5 mg 2.5 mg PRN Q4HRS PRN NEB SHORTNESS OF BREATH; Start at 11:15 Levothyroxine Sodium 20 mcg/ Sodium Chloride 5 ml @ 100 mls/hr DAILY IVP ; Start 07/21/16 at 09:00; Stop 07/21/16 at 09:00; Status DC Levothyroxine Sodium/Sodium Chloride (Synthroid/Iv Sodium Chloride 0.9% 50ml) 5 ml @ 100 mls/hr DAILY IVP Last administered on 07/21/16 09:09; Start 07/20/16 at 14:00 Active Scripts Active Reported Isosorbide Mononitrate Er (Isosorbide Mononitrate) 60 Mg Tab.er.24h 1 Tab PO DAILY Simvastatin 20 Mg Tablet 20 Mg PO DAILY Carvedilol 25 Mg Tablet 25 Mg PO BID Aspir 81 (Aspirin) 81 Mg Tablet.dr 1 Tab PO HS Lisinopril 20 Mg Tablet 1 Tab PO DAILY Levothyroxine Sodium 25 Mcg Tablet 1 Tab PO DAILY Clopidogrel (Clopidogrel Bisulfate) 75 Mg Tablet 1 Tab PO DAILY Diazepam 2 Mg Tablet 2 Mg PO PRN TID PRN Trazodone Hcl 50 Mg Tablet 1 Tab PO QHS Vitals/I & O Vital Sign - Last 24 Hours 07/20/16 07/20/16 07/20/16 07/20/16 11:00 15:00 15:33 18:08 Temp 98.4 98.4 Pulse 56 65 Resp 22 18 B/P 147/79 159/93 Pulse Ox 93 92 O2 Delivery Room Air Room Air Room Air Room Air 07/20/16 07/20/16 07/20/16 07/21/16 19:00 19:45 23:00 02:57 Temp 98.5 98.6 98.4 98.5 98.6 98.4 Pulse 70 64 83 Resp 18 19 20 B/P 153/85 148/80 131/72 Pulse Ox 93 95 95 O2 Delivery Room Air Room Air Room Air Room Air 07/21/16 07/21/16 07/21/16 07:00 07:47 08:00 Temp 97.7 97.7 Pulse 74 Resp 18 B/P 177/65 Pulse Ox 94 96 O2 Delivery Room Air Room Air Room Air Intake and Output 07/20/16 07/20/16 07/21/16 14:59 22:59 06:59 Intake Total 1300 ml Balance [address] of the head without contrast, 07/20/2016: History: Follow-up possible subarachnoid hemorrhage Comparison is made to a study from 07/17/2016. The ventricles are within normal limits in size. There is no shift of the midline structures. There is no evidence of mass effect. There are tiny unchanged foci of increased density along the surface of the brain in the left frontal lobe laterally and deep in the left sylvian fissure. This may represent tiny collections of subarachnoid blood as previously suggested or tiny petechial hemorrhages. No hemorrhage of significant size is seen. There is mild prominence of the subarachnoid space over the anterior aspects of the brain bilaterally compatible with atrophy. No subdural or epidural hemorrhage is seen. No new abnormality is detected. IMPRESSION: No significant change since 07/17/2016. NESTOR MOREL MD Jul 21, 2016 09:31
[2016-07-21 11:00] VITALS: BP 155/72
[2016-07-21] MEDS ORDERED: BARIUM SULFATE 40% (APPLE) 148 GM PWD. PO ONE (11:00)
[2016-07-21] MEDS: POTASSIUM CHLORIDE 10MEQ 100 ML IV SCH ×2 (11:23→12:30)
--- NOTE | 2016-07-21 13:02 | PDOC ---
PROGRESS NOTES Chief Complaint Chief Complaint traumatic subarachnoid hemorrhage history of syncope Possible prior dementia h/o CAD hypothyroidism fever, 2/2 hemorrhage likely leukocytosis, reactive likely hypokalemia hypomagnesemia plan: fu with Neuro repeat MRI head 07/18,not conclusive CTA 07/19, CT 07/20, neg aneurysm cont home meds, hold asa, plavix gi ppx cont iv abx for now, dc soon PTOT replete K, Mag still NPO, swallow eval fu, video swallow study today add PPN CHECK tsh, vitb12, add synthroid iv for now check t4 remove ghotra on 1 to 1 ob may need to dc to LTAC History of Present Illness History of Present Illness more awake on 07/19, answer some questions, follow commands by squeezing hands knows in [place], but said it is 04/2015 looks flat able to walk with help 1 to 1 ob high tsh Vitals Vitals Vital Signs Date Time Temp Pulse Resp B/P Pulse Ox O2 Delivery O2 Flow Rate FiO2 07/21/16 11:47 Room Air 07/21/16 11:00 98.1 76 18 155/72 93 98.1 07/20/16 08:00 2.0 Physical Exam Physical Exam more awake on 07/19, answer some questions, follow commands by squeezing hands knows in [place], but said it is 04/2015 General: Alert Heart: Regular rate, Normal S1, Normal S2 Lungs: Clear Abdomen: Normal bowel sounds, Soft Extremities: No clubbing, No cyanosis Skin: No rashes Labs LABS Laboratory Tests Test 07/21/16 03:42 White Blood Count 12.2x10^3/uL (4.0-11.0) Red Blood Count 4.16x10^6/uL (3.50-5.40) Hemoglobin 13.6g/dL (12.0-15.5) Hematocrit 40.2% (36.0-47.0) Mean Corpuscular Volume 97fL (79-100) Mean Corpuscular Hemoglobin 33pg (25-35) Mean Corpuscular Hemoglobin Concent 34g/dL (31-37) Red Cell Distribution Width 14.7% (11.5-14.5) Platelet Count 108x10^3/uL (140-400) Neutrophils (%) (Auto) 82% (31-73) Lymphocytes (%) (Auto) 12% (24-48) Monocytes (%) (Auto) 5% (0-9) Eosinophils (%) (Auto) 1% (0-3) Basophils (%) (Auto) 0% (0-3) Neutrophils # (Auto) 10.0x10^3uL (1.8-7.7) Lymphocytes # (Auto) 1.5x10^3/uL (1.0-4.8) Monocytes # (Auto) 0.6x10^3/uL (0.0-1.1) Eosinophils # (Auto) 0.1x10^3/uL (0.0-0.7) Basophils # (Auto) 0.0x10^3/uL (0.0-0.2) Sodium Level 144mmol/L (136-145) Potassium Level 3.2mmol/L (3.5-5.1) Chloride Level 109mmol/L (98-107) Carbon Dioxide Level 26mmol/L (21-32) Anion Gap 9 (6-14) Blood Urea Nitrogen 18mg/dL (7-20) Creatinine 0.8mg/dL (0.6-1.0) Estimated GFR (Cockcroft-Gault) 71.3 Glucose Level 112mg/dL (70-99) Calcium Level 9.8mg/dL (8.5-10.1) Vitamin B12 Level 448pg/mL (247-911) Thyroid Stimulating Hormone (TSH) 17.309uIU/mL (0.358-3.74) Review of Systems Review of Systems no fever, chills, sob or chest pain Assessment and Plan Assessmemt and Plan Problems Medical Problems: (1) Altered mental status Status: Acute (2) Closed head injury Status: Acute (3) Dehydration Status: Acute (4) Subarachnoid hemorrhage Status: Acute Problems: Comment Review of Relevant I have reviewed the following items wesly (where applicable) has been applied. Labs Laboratory Tests Test 07/19/16 20:50 07/20/16 04:15 07/21/16 03:42 Potassium Level 3.9mmol/L (3.5-5.1) 3.8mmol/L (3.5-5.1) 3.2mmol/L (3.5-5.1) Magnesium Level 2.2mg/dL (1.8-2.4) 2.0mg/dL (1.8-2.4) White Blood Count 11.2x10^3/uL (4.0-11.0) 12.2x10^3/uL (4.0-11.0) Red Blood Count 3.96x10^6/uL (3.50-5.40) 4.16x10^6/uL (3.50-5.40) Hemoglobin 12.6g/dL (12.0-15.5) 13.6g/dL (12.0-15.5) Hematocrit 38.3% (36.0-47.0) 40.2% (36.0-47.0) Mean Corpuscular Volume 97fL (79-100) 97fL (79-100) Mean Corpuscular Hemoglobin 32pg (25-35) 33pg (25-35) Mean Corpuscular Hemoglobin Concent 33g/dL (31-37) 34g/dL (31-37) Red Cell Distribution Width 15.0% (11.5-14.5) 14.7% (11.5-14.5) Platelet Count 92x10^3/uL (140-400) 108x10^3/uL (140-400) Neutrophils (%) (Auto) 76% (31-73) 82% (31-73) Lymphocytes (%) (Auto) 17% (24-48) 12% (24-48) Monocytes (%) (Auto) 6% (0-9) 5% (0-9) Eosinophils (%) (Auto) 1% (0-3) 1% (0-3) Basophils (%) (Auto) 1% (0-3) 0% (0-3) Neutrophils # (Auto) 8.5x10^3uL (1.8-7.7) 10.0x10^3uL (1.8-7.7) Lymphocytes # (Auto) 1.9x10^3/uL (1.0-4.8) 1.5x10^3/uL (1.0-4.8) Monocytes # (Auto) 0.7x10^3/uL (0.0-1.1) 0.6x10^3/uL (0.0-1.1) Eosinophils # (Auto) 0.1x10^3/uL (0.0-0.7) 0.1x10^3/uL (0.0-0.7) Basophils # (Auto) 0.1x10^3/uL (0.0-0.2) 0.0x10^3/uL (0.0-0.2) Sodium Level 144mmol/L (136-145) 144mmol/L (136-145) Chloride Level 110mmol/L (98-107) 109mmol/L (98-107) Carbon Dioxide Level 26mmol/L (21-32) 26mmol/L (21-32) Anion Gap 8 (6-14) 9 (6-14) Blood Urea Nitrogen 20mg/dL (7-20) 18mg/dL (7-20) Creatinine 0.9mg/dL (0.6-1.0) 0.8mg/dL (0.6-1.0) Estimated GFR (Cockcroft-Gault) 62.3 71.3 Glucose Level 92mg/dL (70-99) 112mg/dL (70-99) Calcium Level 9.8mg/dL (8.5-10.1) 9.8mg/dL (8.5-10.1) Vitamin B12 Level 448pg/mL (247-911) Thyroid Stimulating Hormone (TSH) 17.309uIU/mL (0.358-3.74) Laboratory Tests Test 07/21/16 03:42 White Blood Count 12.2x10^3/uL (4.0-11.0) Red Blood Count 4.16x10^6/uL (3.50-5.40) Hemoglobin 13.6g/dL (12.0-15.5) Hematocrit 40.2% (36.0-47.0) Mean Corpuscular Volume 97fL (79-100) Mean Corpuscular Hemoglobin 33pg (25-35) Mean Corpuscular Hemoglobin Concent 34g/dL (31-37) Red Cell Distribution Width 14.7% (11.5-14.5) Platelet Count 108x10^3/uL (140-400) Neutrophils (%) (Auto) 82% (31-73) Lymphocytes (%) (Auto) 12% (24-48) Monocytes (%) (Auto) 5% (0-9) Eosinophils (%) (Auto) 1% (0-3) Basophils (%) (Auto) 0% (0-3) Neutrophils # (Auto) 10.0x10^3uL (1.8-7.7) Lymphocytes # (Auto) 1.5x10^3/uL (1.0-4.8) Monocytes # (Auto) 0.6x10^3/uL (0.0-1.1) Eosinophils # (Auto) 0.1x10^3/uL (0.0-0.7) Basophils # (Auto) 0.0x10^3/uL (0.0-0.2) Sodium Level 144mmol/L (136-145) Potassium Level 3.2mmol/L (3.5-5.1) Chloride Level 109mmol/L (98-107) Carbon Dioxide Level 26mmol/L (21-32) Anion Gap 9 (6-14) Blood Urea Nitrogen 18mg/dL (7-20) Creatinine 0.8mg/dL (0.6-1.0) Estimated GFR (Cockcroft-Gault) 71.3 Glucose Level 112mg/dL (70-99) Calcium Level 9.8mg/dL (8.5-10.1) Vitamin B12 Level 448pg/mL (247-911) Thyroid Stimulating Hormone (TSH) 17.309uIU/mL (0.358-3.74) Microbiology 07/17/16 Blood Culture - Preliminary, Resulted NO GROWTH AFTER 4 DAYS Medications Current Medications Sodium Chloride 1,000 ml @ 1,000 mls/hr 1X ONCE IV Last administered on 11:46; Start 07/17/16 at 11:45; Stop 07/17/16 at 12:44; Status DC Levofloxacin/ Dextrose 150 ml @ 100 mls/hr 1X ONCE IV Last administered on 14:22; Start 07/17/16 at 13:45; Stop 07/17/16 at 15:14; Status DC Clindamycin Phosphate 50 ml @ 100 mls/hr Q8HRS IV Last administered on 05:28; Start 07/17/16 at 22:00 Clindamycin Phosphate (Cleocin 600 Mg Premix) 50 ml @ 100 mls/hr ONCE ONCE IV Last administered on 07/17/16 13:49; Start 07/17/16 at 13:45; Stop 07/17/16 at 19:13; Status DC Lidocaine/ Epinephrine (Let Topical) 3 ml 1X ONCE TP Last administered on 07/17 14:34; Start 07/17/16 at 14:30; Stop 07/17/16 at 14:31; Status DC Lidocaine/ Epinephrine (Xylocaine 1%-Epi 1:100,000) 20 ml 1X ONCE INJ Last administered on 07/17/16 14:37; Start 07/17/16 at 14:30; Stop 07/17/16 at 14:31 ; Status DC Tetanus/ Diphtheria Toxoids Adsorbed (Tenivac Syringe) 0.5 ml ONCE ONCE VAX IM Last administered on 07/17/16 14:37; Start 07/17/16 at 14:30; Stop 07/17/16 at 14:31; Status DC Ondansetron HCl (Zofran) 4 mg PRN Q8HRS PRN IV NAUSEA/VOMITING; Start 07/17/16 at 14:45; Stop 07/18/16 at 14:44; Status DC Acetaminophen (Tylenol) 650 mg PRN Q4HRS PRN PO FEVER; Start 07/17/16 at 14:45 ; Stop 07/18/16 at 14:44; Status DC Acetaminophen (Tylenol) 325 mg PRN Q6HRS PRN [place] MILD PAIN / TEMP; Start at 15:30 Acetaminophen (Tylenol) 325 mg 1X ONCE NE ; Start 07/17/16 at 15:30; Stop 07/17 at 15:31; Status DC Acetaminophen (Acetaminophen Supp) 650 mg STK-MED ONCE .ROUTE ; Start 07/17/16 at 15:21; Stop 07/17/16 at 15:22; Status DC Acetaminophen 650 mg 650 mg 1X ONCE NE Last administered on 07/17/16 15:27; Start 07/17/16 at 15:45; Stop 07/17/16 at 15:46; Status DC Sodium Chloride (Iv Sodium Chloride 0.9% 1000ml Bag) 1,000 ml @ 125 mls/hr 1X ONCE IV ; Start 07/17/16 at 15:45; Stop 07/17/16 at 23:44; Status DC Acetaminophen 650 mg 650 mg 1X ONCE NE ; Start 07/17/16 at 15:30; Stop at 15:31; Status DC Sodium Chloride 1,000 ml @ 125 mls/hr Q8H IV Last administered on 07/17/16 18 :22; Start 07/17/16 at 17:30; Stop 07/17/16 at 19:13; Status DC Levetiracetam/ Sodium Chloride (Keppra/Iv Sodium Chloride 0.9% 100ml) 105 ml @ 400 mls/hr Q12HR IV Last administered on 07/21/16 09:08; Start 07/17/16 at 21: 00 Isosorbide Mononitrate (Imdur) 60 mg DAILY PO ; Start 07/18/16 at 09:00; Stop at 09:00; Status DC Levothyroxine Sodium (Synthroid) 25 mcg DAILY07 PO ; Start 07/18/16 at 09:00; Stop 07/20/16 at 13:27; Status DC Lisinopril (Prinivil) 20 mg DAILY PO ; Start 07/18/16 at 09:00 Simvastatin (Zocor) 20 mg DAILY PO ; Start 07/18/16 at 09:00 Isosorbide Mononitrate 60 mg 60 mg DAILY PO ; Start 07/18/16 at 09:00 Potassium Chloride 10 meq/ Sodium Chloride 1,005 ml @ 75 mls/hr [id number] PRN IV . Last administered on 07/20/16 02:51; Start 07/17/16 at 19:00; Stop 07/20/16 at 11:14; Status DC Meropenem/Sodium Chloride (Merrem/Iv Sodium Chloride 0.9% 50ml) 50 ml @ 100 mls /hr Q8H IV Last administered on 07/21/16 03:26; Start 07/18/16 at 04:00 Famotidine (Pepcid) 20 mg QHS PO ; Start 07/18/16 at 21:00 Hydralazine HCl (Apresoline) 10 mg PRN Q4HRS PRN IVP ELEVATED BP, SEE COMMENTS Last administered on 07/21/16 09:38; Start 07/18/16 at 12:30 Ondansetron HCl (Zofran) 4 mg PRN Q6HRS PRN IV NAUSEA/VOMITING; Start 07/18/16 at 12:30 Iohexol 75 ml 75 ml 1X ONCE IV Last administered on 07/18/16 15:15; Start at 15:15; Stop 07/18/16 at 15:16; Status DC Potassium Chloride (KCl Premix 10meq) 100 ml @ 100 mls/hr Q1H IV Last administered on 07/19/16 18:45; Start 07/19/16 at 09:00; Stop 07/19/16 at 12:59 ; Status DC Iohexol (Omnipaque 300 Mg/ml) 75 ml 1X ONCE IV ; Start 07/19/16 at 10:15; Stop 07/19/16 at 10:17; Status DC Info 1 each 1 each PRN DAILY PRN MC SEE COMMENTS; Start 07/19/16 at 10:15; Stop 07/21/16 at 10:14; Status DC Magnesium Sulfate/ Dextrose 50 ml @ 25 mls/hr 1X ONCE IV Last administered on 07/19/16 14:10; Start 07/19/16 at 13:00; Stop 07/19/16 at 14:59; Status DC Amino Acids/ Glycerin/ Electrolytes (Procalamine) 1,000 ml @ 80 mls/hr [id number] IV Last administered on 07/21/16 06:20; Start 07/20/16 at 11:15 Albuterol/ Ipratropium (Duoneb) 3 ml RTQID NEB Last administered on 07/21/16 11:45; Start 07/20/16 at 12:00 Albuterol Sulfate 2.5 mg 2.5 mg PRN Q4HRS PRN NEB SHORTNESS OF BREATH; Start at 11:15 Levothyroxine Sodium 20 mcg/ Sodium Chloride 5 ml @ 100 mls/hr DAILY IVP ; Start 07/21/16 at 09:00; Stop 07/21/16 at 09:00; Status DC Levothyroxine Sodium 20 mcg/ Sodium Chloride 5 ml @ 100 mls/hr DAILY IVP Last administered on 07/21/16 09:09; Start 07/20/16 at 14:00 Potassium Chloride (KCl Premix 10meq) 100 ml @ 100 mls/hr Q1H IV Last administered on 07/21/16t 11:23; Start 07/21/16 at 11:30; Stop 07/21/16 at 13:29 Barium Sulfate (Varibar Thin Liquid Apple) 148 gm 1X ONCE PO ; Start 07/21/16 at 11:00; Stop 07/21/16 at 11:01; Status DC Active Scripts Active Reported Isosorbide Mononitrate Er (Isosorbide Mononitrate) 60 Mg Tab.er.24h 1 Tab PO DAILY Simvastatin 20 Mg Tablet 20 Mg PO DAILY Carvedilol 25 Mg Tablet 25 Mg PO BID Aspir 81 (Aspirin) 81 Mg Tablet.dr 1 Tab PO HS Lisinopril 20 Mg Tablet 1 Tab PO DAILY Levothyroxine Sodium 25 Mcg Tablet 1 Tab PO DAILY Clopidogrel (Clopidogrel Bisulfate) 75 Mg Tablet 1 Tab PO DAILY Diazepam 2 Mg Tablet 2 Mg PO PRN TID PRN Trazodone Hcl 50 Mg Tablet 1 Tab PO QHS Vitals/I & O Vital Sign - Last 24 Hours 07/20/16 07/20/16 07/20/16 07/20/16 15:00 15:33 18:08 19:00 Temp 98.4 98.5 98.4 98.5 Pulse 65 70 Resp 18 B/P 159/93 153/85 Pulse Ox 92 93 O2 Delivery Room Air Room Air Room Air Room Air 07/20/16 07/20/16 07/21/16 07/21/16 19:45 23:00 02:57 07:00 Temp 98.6 98.4 97.7 98.6 98.4 97.7 Pulse 64 83 74 Resp 18 B/P 148/80 131/72 177/65 Pulse Ox 95 95 94 O2 Delivery Room Air Room Air Room Air Room Air 07/21/16 07/21/16 07/21/16 07/21/16 07:47 08:00 09:38 11:00 Temp 98.1 98.1 Pulse 74 76 Resp 18 B/P 177/65 155/72 Pulse Ox 96 93 O2 Delivery Room Air Room Air Room Air 07/21/16 11:47 O2 Delivery Room Air Intake and Output 07/20/16 07/20/16 07/21/16 15:00 23:00 07:00 Intake Total 1300 ml Balance 1300 ml Nutrition Consultation Dietary Evaluation: Recommendations by RD: PPN/TPN Comments: continue ppn for short term nutrition at this time Expected Outcomes/Goals: diet advancement Interpretation of weight loss: >20% in 1 year Malnutrition Findings: Body Fat Depletion (Non Severe: Mild Depletion Weight Status: Appropriate TRESSA WILD MD Jul 21, 2016 13:02
--- NOTE | 2016-07-21 14:36 | RAD ---
Indication subarachnoid hemorrhage. Signs and symptoms of aspiration. With a member of the Department of speech pathology swallowing was evaluated. No spot fluoroscopic images were obtained. Fluoroscopy time associated with the imaging was 3.4 minutes. The initiation of swallowing was unremarkable. No significant flash penetration was seen. No aspiration was apparent. There is no significant residual. See speech pathology notes for additional details. IMPRESSION: Unremarkable swallowing
[2016-07-21 15:00] VITALS: BP 156/82
[2016-07-21] MEDS: NICOTINE 21MG PATCH. TD SCH (16:37)
[2016-07-21 19:00] VITALS: BP_SYST 150; BP_SYST 156; BP_DIAS 77; BP_DIAS 82
[2016-07-21] MEDS: FAMOTIDINE 20 MG TABLET. PO SCH (21:30)
[2016-07-21] MEDS: LEVETIRACETAM 500 MG TABLET. PO SCH (21:33)
[2016-07-21 23:00] VITALS: BP 145/83
[2016-07-22] MEDS: AMINO AC 3%/ELECTROLYTE/GLYCER 1,000 ML IV SCH (00:45)
[2016-07-22 03:00] VITALS: BP_SYST 145; BP_SYST 151; BP_DIAS 82; BP_DIAS 83
[2016-07-22 05:28] LABS: HEMATOCRIT 40.1 % (36.0-47.0); HEMOGLOBIN 13.5 g/dL (12.0-15.5); RED BLOOD COUNT 4.16 x10^6/uL (3.50-5.40); RED CELL DISTRIBUTION WIDTH 15.3 % (11.5-14.5); WHITE BLOOD COUNT 11.9 x10^3/uL (4.0-11.0)
[2016-07-22 05:41] LABS: CALCIUM 9.8 mg/dL (8.5-10.1); CREATININE 0.7 mg/dL (0.6-1.0); GFR 83.2; POTASSIUM 3.8 mmol/L (3.5-5.1)
[2016-07-22 06:55] VITALS: BP 184/99
[2016-07-22] MEDS: IPRATRPIUM/ALBUTEROL 0.5/2.5MG 3 ML NEBU. NEB SCH ×4 (07:37→20:30)
[2016-07-22] MEDS: LEVETIRACETAM 500 MG TABLET. PO SCH ×2 (08:26→20:47)
[2016-07-22] MEDS: SIMVASTATIN 20 MG TABLET PO SCH (08:26)
[2016-07-22] MEDS: LISINOPRIL 20 MG TABLET PO SCH (08:26)
[2016-07-22] MEDS: NICOTINE 21MG PATCH. TD SCH (08:27)
[2016-07-22] MEDS: LEVOTHYROXINE SODIUM IVP SCH (08:34)
[2016-07-22] MEDS: NORMAL SALINE IVP SCH (08:34)
--- NOTE | 2016-07-22 10:41 | PDOC ---
PROGRESS NOTES Assessment Problems Medical Problems: (1) Altered mental status Status: Acute (2) Closed head injury Status: Acute (3) Dehydration Status: Acute (4) Subarachnoid hemorrhage Status: Acute Traumatic subarachnoid hemorrhage History of syncope Possible prior dementia Plan Okay to go to SNU--note plans for LTAC Supportive care Subjective no pain complaint Objective Vital Signs Date Time Temp Pulse Resp B/P Pulse Ox O2 Delivery O2 Flow Rate FiO2 07/22/16 08:26 73 184/99 07/22/16 08:00 Room Air 07/22/16 07:37 97 07/22/16 06:55 97.4 20 97.4 07/22/16 03:00 2.0 Intake and Output 07/22/16 07:00 Intake Total 1560 ml Output Total 200 ml Balance 1360 ml Intake Oral 600 ml IV Total 960 ml Output Urine Total 200 ml # Voids 12 # Bowel Movements 1 PHYSICAL EXAM Alert. Oriented to person, "hospital," knows month and year. PERRL. EOMI. CN: no focal findings. Muscle tone: normal. Muscle strength: 4/5 DTR: 1+ Plantar reflex: flexor Gait: not examined in bed. Sensory exam: no abnormal findings. No cerebellar signs elicited. Review of Relevant I have reviewed the following items wesly (where applicable) has been applied. Labs Laboratory Tests Test 07/21/16 03:42 07/22/16 04:50 White Blood Count 12.2x10^3/uL (4.0-11.0) 11.9x10^3/uL (4.0-11.0) Red Blood Count 4.16x10^6/uL (3.50-5.40) 4.16x10^6/uL (3.50-5.40) Hemoglobin 13.6g/dL (12.0-15.5) 13.5g/dL (12.0-15.5) Hematocrit 40.2% (36.0-47.0) 40.1% (36.0-47.0) Mean Corpuscular Volume 97fL (79-100) 97fL (79-100) Mean Corpuscular Hemoglobin 33pg (25-35) 33pg (25-35) Mean Corpuscular Hemoglobin Concent 34g/dL (31-37) 34g/dL (31-37) Red Cell Distribution Width 14.7% (11.5-14.5) 15.3% (11.5-14.5) Platelet Count 108x10^3/uL (140-400) 114x10^3/uL (140-400) Neutrophils (%) (Auto) 82% (31-73) Lymphocytes (%) (Auto) 12% (24-48) Monocytes (%) (Auto) 5% (0-9) Eosinophils (%) (Auto) 1% (0-3) Basophils (%) (Auto) 0% (0-3) Neutrophils # (Auto) 10.0x10^3uL (1.8-7.7) Lymphocytes # (Auto) 1.5x10^3/uL (1.0-4.8) Monocytes # (Auto) 0.6x10^3/uL (0.0-1.1) Eosinophils # (Auto) 0.1x10^3/uL (0.0-0.7) Basophils # (Auto) 0.0x10^3/uL (0.0-0.2) Sodium Level 144mmol/L (136-145) 144mmol/L (136-145) Potassium Level 3.2mmol/L (3.5-5.1) 3.8mmol/L (3.5-5.1) Chloride Level 109mmol/L (98-107) 109mmol/L (98-107) Carbon Dioxide Level 26mmol/L (21-32) 29mmol/L (21-32) Anion Gap 9 (6-14) 6 (6-14) Blood Urea Nitrogen 18mg/dL (7-20) 13mg/dL (7-20) Creatinine 0.8mg/dL (0.6-1.0) 0.7mg/dL (0.6-1.0) Estimated GFR (Cockcroft-Gault) 71.3 83.2 Glucose Level 112mg/dL (70-99) 111mg/dL (70-99) Calcium Level 9.8mg/dL (8.5-10.1) 9.8mg/dL (8.5-10.1) Vitamin B12 Level 448pg/mL (247-911) Thyroid Stimulating Hormone (TSH) 17.309uIU/mL (0.358-3.74) Free Thyroxine 0.99ng/dL (0.76-1.46) Laboratory Tests Test 07/22/16 04:50 White Blood Count 11.9x10^3/uL (4.0-11.0) Red Blood Count 4.16x10^6/uL (3.50-5.40) Hemoglobin 13.5g/dL (12.0-15.5) Hematocrit 40.1% (36.0-47.0) Mean Corpuscular Volume 97fL (79-100) Mean Corpuscular Hemoglobin 33pg (25-35) Mean Corpuscular Hemoglobin Concent 34g/dL (31-37) Red Cell Distribution Width 15.3% (11.5-14.5) Platelet Count 114x10^3/uL (140-400) Sodium Level 144mmol/L (136-145) Potassium Level 3.8mmol/L (3.5-5.1) Chloride Level 109mmol/L (98-107) Carbon Dioxide Level 29mmol/L (21-32) Anion Gap 6 (6-14) Blood Urea Nitrogen 13mg/dL (7-20) Creatinine 0.7mg/dL (0.6-1.0) Estimated GFR (Cockcroft-Gault) 83.2 Glucose Level 111mg/dL (70-99) Calcium Level 9.8mg/dL (8.5-10.1) Microbiology 07/17/16 Blood Culture - Preliminary, Resulted NO GROWTH AFTER 4 DAYS Medications Current Medications Sodium Chloride 1,000 ml @ 1,000 mls/hr 1X ONCE IV Last administered on 11:46; Start 07/17/16 at 11:45; Stop 07/17/16 at 12:44; Status DC Levofloxacin/ Dextrose 150 ml @ 100 mls/hr 1X ONCE IV Last administered on 14:22; Start 07/17/16 at 13:45; Stop 07/17/16 at 15:14; Status DC Clindamycin Phosphate 50 ml @ 100 mls/hr Q8HRS IV Last administered on 05:28; Start 07/17/16 at 22:00; Stop 07/21/16 at 16:33; Status DC Clindamycin Phosphate (Cleocin 600 Mg Premix) 50 ml @ 100 mls/hr ONCE ONCE IV Last administered on 07/17/16 13:49; Start 07/17/16 at 13:45; Stop 07/17/16 at 19:13; Status DC Lidocaine/ Epinephrine (Let Topical) 3 ml 1X ONCE TP Last administered on 07/17 14:34; Start 07/17/16 at 14:30; Stop 07/17/16 at 14:31; Status DC Lidocaine/ Epinephrine (Xylocaine 1%-Epi 1:100,000) 20 ml 1X ONCE INJ Last administered on 07/17/16 14:37; Start 07/17/16 at 14:30; Stop 07/17/16 at 14:31 ; Status DC Tetanus/ Diphtheria Toxoids Adsorbed (Tenivac Syringe) 0.5 ml ONCE ONCE VAX IM Last administered on 07/17/16 14:37; Start 07/17/16 at 14:30; Stop 07/17/16 at 14:31; Status DC Ondansetron HCl (Zofran) 4 mg PRN Q8HRS PRN IV NAUSEA/VOMITING; Start 07/17/16 at 14:45; Stop 07/18/16 at 14:44; Status DC Acetaminophen (Tylenol) 650 mg PRN Q4HRS PRN PO FEVER; Start 07/17/16 at 14:45 ; Stop 07/18/16 at 14:44; Status DC Acetaminophen (Tylenol) 325 mg PRN Q6HRS PRN [place] MILD PAIN / TEMP; Start at 15:30 Acetaminophen (Tylenol) 325 mg 1X ONCE GA ; Start 07/17/16 at 15:30; Stop 07/17 at 15:31; Status DC Acetaminophen (Acetaminophen Supp) 650 mg STK-MED ONCE .ROUTE ; Start 07/17/16 at 15:21; Stop 07/17/16 at 15:22; Status DC Acetaminophen 650 mg 650 mg 1X ONCE GA Last administered on 07/17/16 15:27; Start 07/17/16 at 15:45; Stop 07/17/16 at 15:46; Status DC Sodium Chloride (Iv Sodium Chloride 0.9% 1000ml Bag) 1,000 ml @ 125 mls/hr 1X ONCE IV ; Start 07/17/16 at 15:45; Stop 07/17/16 at 23:44; Status DC Acetaminophen 650 mg 650 mg 1X ONCE GA ; Start 07/17/16 at 15:30; Stop at 15:31; Status DC Sodium Chloride 1,000 ml @ 125 mls/hr Q8H IV Last administered on 07/17/16 18 :22; Start 07/17/16 at 17:30; Stop 07/17/16 at 19:13; Status DC Levetiracetam/ Sodium Chloride (Keppra/Iv Sodium Chloride 0.9% 100ml) 105 ml @ 400 mls/hr Q12HR IV Last administered on 07/21/16 09:08; Start 07/17/16 at 21: 00; Stop 07/21/16 at 20:50; Status DC Isosorbide Mononitrate (Imdur) 60 mg DAILY PO ; Start 07/18/16 at 09:00; Stop at 09:00; Status DC Levothyroxine Sodium (Synthroid) 25 mcg DAILY07 PO ; Start 07/18/16 at 09:00; Stop 07/20/16 at 13:27; Status DC Lisinopril (Prinivil) 20 mg DAILY PO Last administered on 07/22/16 08:26; Start 07/18/16 at 09:00 Simvastatin (Zocor) 20 mg DAILY PO Last administered on 07/22/16 08:26; Start 07/18/16 at 09:00 Isosorbide Mononitrate 60 mg 60 mg DAILY PO ; Start 07/18/16 at 09:00; Stop at 13:01; Status DC Potassium Chloride 10 meq/ Sodium Chloride 1,005 ml @ 75 mls/hr [id number] PRN IV . Last administered on 07/20/16 02:51; Start 07/17/16 at 19:00; Stop 07/20/16 at 11:14; Status DC Meropenem/Sodium Chloride (Merrem/Iv Sodium Chloride 0.9% 50ml) 50 ml @ 100 mls /hr Q8H IV Last administered on 07/21/16 13:43; Start 07/18/16 at 04:00; Stop 07/21/16 at 16:33; Status DC Famotidine (Pepcid) 20 mg QHS PO Last administered on 07/21/16 21:30; Start at 21:00 Hydralazine HCl (Apresoline) 10 mg PRN Q4HRS PRN IVP ELEVATED BP, SEE COMMENTS Last administered on 07/21/16 09:38; Start 07/18/16 at 12:30 Ondansetron HCl (Zofran) 4 mg PRN Q6HRS PRN IV NAUSEA/VOMITING; Start 07/18/16 at 12:30 Iohexol 75 ml 75 ml 1X ONCE IV Last administered on 07/18/16 15:15; Start at 15:15; Stop 07/18/16 at 15:16; Status DC Potassium Chloride (KCl Premix 10meq) 100 ml @ 100 mls/hr Q1H IV Last administered on 07/19/16 18:45; Start 07/19/16 at 09:00; Stop 07/19/16 at 12:59 ; Status DC Iohexol (Omnipaque 300 Mg/ml) 75 ml 1X ONCE IV ; Start 07/19/16 at 10:15; Stop 07/19/16 at 10:17; Status DC Info 1 each 1 each PRN DAILY PRN MC SEE COMMENTS; Start 07/19/16 at 10:15; Stop 07/21/16 at 10:14; Status DC Magnesium Sulfate/ Dextrose 50 ml @ 25 mls/hr 1X ONCE IV Last administered on 07/19/16 14:10; Start 07/19/16 at 13:00; Stop 07/19/16 at 14:59; Status DC Amino Acids/ Glycerin/ Electrolytes (Procalamine) 1,000 ml @ 80 mls/hr [id number] IV Last administered on 07/22/16 00:45; Start 07/20/16 at 11:15 Albuterol/ Ipratropium (Duoneb) 3 ml RTQID NEB Last administered on 07/22/16 07:37; Start 07/20/16 at 12:00 Albuterol Sulfate 2.5 mg 2.5 mg PRN Q4HRS PRN NEB SHORTNESS OF BREATH; Start at 11:15 Levothyroxine Sodium 20 mcg/ Sodium Chloride 5 ml @ 100 mls/hr DAILY IVP ; Start 07/21/16 at 09:00; Stop 07/21/16 at 09:00; Status DC Levothyroxine Sodium 20 mcg/ Sodium Chloride 5 ml @ 100 mls/hr DAILY IVP Last administered on 07/22/16 08:34; Start 07/20/16 at 14:00; Stop 07/22/16 at 10:33 ; Status DC Potassium Chloride (KCl Premix 10meq) 100 ml @ 100 mls/hr Q1H IV Last administered on 07/21/16 12:30; Start 07/21/16 at 11:30; Stop 07/21/16 at 13:29 ; Status DC Barium Sulfate (Varibar Thin Liquid Apple) 148 gm 1X ONCE PO Last administered on 07/21/16 14:19; Start 07/21/16 at 11:00; Stop 07/21/16 at 11:01 ; Status DC Nicotine (Nicoderm Cq 21mg) 1 patch DAILY TD Last administered on 07/22/16 08: 27; Start 07/21/16 at 14:00 Levetiracetam (Keppra) 500 mg BID PO Last administered on 07/22/16 08:26; Start 07/21/16 at 21:00 Levothyroxine Sodium (Synthroid) 50 mcg DAILY07 PO ; Start 07/23/16 at 07:00 Active Scripts Active Reported Isosorbide Mononitrate Er (Isosorbide Mononitrate) 60 Mg Tab.er.24h 1 Tab PO DAILY Simvastatin 20 Mg Tablet 20 Mg PO DAILY Carvedilol 25 Mg Tablet 25 Mg PO BID Aspir 81 (Aspirin) 81 Mg Tablet.dr 1 Tab PO HS Lisinopril 20 Mg Tablet 1 Tab PO DAILY Levothyroxine Sodium 25 Mcg Tablet 1 Tab PO DAILY Clopidogrel (Clopidogrel Bisulfate) 75 Mg Tablet 1 Tab PO DAILY Diazepam 2 Mg Tablet 2 Mg PO PRN TID PRN Trazodone Hcl 50 Mg Tablet 1 Tab PO QHS Vitals/I & O Vital Sign - Last 24 Hours 07/21/16 07/21/16 07/21/16 07/21/16 11:00 11:47 15:00 15:32 Temp 98.1 98.2 98.1 98.2 Pulse 76 74 Resp 18 20 B/P 155/72 156/82 Pulse Ox 93 94 O2 Delivery Room Air Room Air Room Air Room Air 07/21/16 07/21/16 07/21/16 07/21/16 19:00 19:00 19:36 23:00 Temp 98.0 98.2 99.0 98.0 98.2 99.0 Pulse 88 74 89 Resp 18 16 B/P 150/77 156/82 145/83 Pulse Ox 96 94 94 95 O2 Delivery Room Air Room Air Room Air Room Air O2 Flow Rate 2.0 07/22/16 07/22/16 07/22/16 07/22/16 03:00 03:00 06:55 07:37 Temp 97.0 99.0 97.4 97.0 99.0 97.4 Pulse 96 89 73 Resp 18 20 B/P 151/82 145/83 184/99 Pulse Ox 95 95 95 97 O2 Delivery Room Air Room Air Room Air Room Air O2 Flow Rate 2.0 07/22/16 07/22/16 08:00 08:26 Pulse 73 B/P 184/99 O2 Delivery Room Air Intake and Output 07/21/16 07/21/16 07/22/16 15:00 23:00 07:00 Intake Total 300 ml 1260 ml Output Total 200 ml Balance -200 ml 300 ml 1260 ml NESTOR MOREL MD Jul 22, 2016 10:41
[2016-07-22 11:04] VITALS: BP 141/78
[2016-07-22] MEDS ORDERED: LEVE500T6 PO (11:34)
[2016-07-22] MEDS ORDERED: LEVO50TA PO (11:34)
--- NOTE | 2016-07-22 13:54 | PDOC ---
PROGRESS NOTES Chief Complaint Chief Complaint traumatic subarachnoid hemorrhage history of syncope Possible prior dementia h/o CAD hypothyroidism fever, 2/2 hemorrhage likely leukocytosis, reactive likely hypokalemia hypomagnesemia plan: fu with Neuro repeat MRI head 07/18,not conclusive CTA 07/19, CT 07/20, neg aneurysm cont home meds, hold asa, plavix gi ppx dced abx PTOT replete K, Mag dysphagia 2 diet, dc ppn synthroid increase to 50mcg daily now on 1 to 1 ob pt can be dced to SNF, [facility] denies her. however, still on to ob, hope can dc her to SNF wo ob. History of Present Illness History of Present Illness more awake on 07/19, answer some questions, follow commands by squeezing hands knows in [place], but said it is 04/2015 looks flat able to walk with help to ob high tsh Vitals Vitals Vital Signs Date Time Temp Pulse Resp B/P Pulse Ox O2 Delivery O2 Flow Rate FiO2 07/22/16 11:04 97.7 90 18 141/78 94 Room Air 97.7 07/22/16 03:00 2.0 Physical Exam Physical Exam more awake on 07/19, answer some questions, follow commands by squeezing hands knows in [place], but said it is 04/2015 General: Alert Heart: Regular rate, Normal S1, Normal S2 Lungs: Clear Abdomen: Normal bowel sounds, Soft Extremities: No clubbing, No cyanosis Skin: No rashes Labs LABS Laboratory Tests Test 07/22/16 04:50 White Blood Count 11.9x10^3/uL (4.0-11.0) Red Blood Count 4.16x10^6/uL (3.50-5.40) Hemoglobin 13.5g/dL (12.0-15.5) Hematocrit 40.1% (36.0-47.0) Mean Corpuscular Volume 97fL (79-100) Mean Corpuscular Hemoglobin 33pg (25-35) Mean Corpuscular Hemoglobin Concent 34g/dL (31-37) Red Cell Distribution Width 15.3% (11.5-14.5) Platelet Count 114x10^3/uL (140-400) Sodium Level 144mmol/L (136-145) Potassium Level 3.8mmol/L (3.5-5.1) Chloride Level 109mmol/L (98-107) Carbon Dioxide Level 29mmol/L (21-32) Anion Gap 6 (6-14) Blood Urea Nitrogen 13mg/dL (7-20) Creatinine 0.7mg/dL (0.6-1.0) Estimated GFR (Cockcroft-Gault) 83.2 Glucose Level 111mg/dL (70-99) Calcium Level 9.8mg/dL (8.5-10.1) Review of Systems Review of Systems no fever, chills, sob or chest pain Assessment and Plan Assessmemt and Plan Problems Medical Problems: (1) Altered mental status Status: Acute (2) Closed head injury Status: Acute (3) Dehydration Status: Acute (4) Subarachnoid hemorrhage Status: Acute Problems: Comment Review of Relevant I have reviewed the following items wesly (where applicable) has been applied. Labs Laboratory Tests Test 07/21/16 03:42 07/22/16 04:50 White Blood Count 12.2x10^3/uL (4.0-11.0) 11.9x10^3/uL (4.0-11.0) Red Blood Count 4.16x10^6/uL (3.50-5.40) 4.16x10^6/uL (3.50-5.40) Hemoglobin 13.6g/dL (12.0-15.5) 13.5g/dL (12.0-15.5) Hematocrit 40.2% (36.0-47.0) 40.1% (36.0-47.0) Mean Corpuscular Volume 97fL (79-100) 97fL (79-100) Mean Corpuscular Hemoglobin 33pg (25-35) 33pg (25-35) Mean Corpuscular Hemoglobin Concent 34g/dL (31-37) 34g/dL (31-37) Red Cell Distribution Width 14.7% (11.5-14.5) 15.3% (11.5-14.5) Platelet Count 108x10^3/uL (140-400) 114x10^3/uL (140-400) Neutrophils (%) (Auto) 82% (31-73) Lymphocytes (%) (Auto) 12% (24-48) Monocytes (%) (Auto) 5% (0-9) Eosinophils (%) (Auto) 1% (0-3) Basophils (%) (Auto) 0% (0-3) Neutrophils # (Auto) 10.0x10^3uL (1.8-7.7) Lymphocytes # (Auto) 1.5x10^3/uL (1.0-4.8) Monocytes # (Auto) 0.6x10^3/uL (0.0-1.1) Eosinophils # (Auto) 0.1x10^3/uL (0.0-0.7) Basophils # (Auto) 0.0x10^3/uL (0.0-0.2) Sodium Level 144mmol/L (136-145) 144mmol/L (136-145) Potassium Level 3.2mmol/L (3.5-5.1) 3.8mmol/L (3.5-5.1) Chloride Level 109mmol/L (98-107) 109mmol/L (98-107) Carbon Dioxide Level 26mmol/L (21-32) 29mmol/L (21-32) Anion Gap 9 (6-14) 6 (6-14) Blood Urea Nitrogen 18mg/dL (7-20) 13mg/dL (7-20) Creatinine 0.8mg/dL (0.6-1.0) 0.7mg/dL (0.6-1.0) Estimated GFR (Cockcroft-Gault) 71.3 83.2 Glucose Level 112mg/dL (70-99) 111mg/dL (70-99) Calcium Level 9.8mg/dL (8.5-10.1) 9.8mg/dL (8.5-10.1) Vitamin B12 Level 448pg/mL (247-911) Thyroid Stimulating Hormone (TSH) 17.309uIU/mL (0.358-3.74) Free Thyroxine 0.99ng/dL (0.76-1.46) Laboratory Tests Test 07/22/16 04:50 White Blood Count 11.9x10^3/uL (4.0-11.0) Red Blood Count 4.16x10^6/uL (3.50-5.40) Hemoglobin 13.5g/dL (12.0-15.5) Hematocrit 40.1% (36.0-47.0) Mean Corpuscular Volume 97fL (79-100) Mean Corpuscular Hemoglobin 33pg (25-35) Mean Corpuscular Hemoglobin Concent 34g/dL (31-37) Red Cell Distribution Width 15.3% (11.5-14.5) Platelet Count 114x10^3/uL (140-400) Sodium Level 144mmol/L (136-145) Potassium Level 3.8mmol/L (3.5-5.1) Chloride Level 109mmol/L (98-107) Carbon Dioxide Level 29mmol/L (21-32) Anion Gap 6 (6-14) Blood Urea Nitrogen 13mg/dL (7-20) Creatinine 0.7mg/dL (0.6-1.0) Estimated GFR (Cockcroft-Gault) 83.2 Glucose Level 111mg/dL (70-99) Calcium Level 9.8mg/dL (8.5-10.1) Microbiology 07/17/16 Blood Culture - Final, Complete NO GROWTH AFTER 5 DAYS Medications Current Medications Sodium Chloride 1,000 ml @ 1,000 mls/hr 1X ONCE IV Last administered on 11:46; Start 07/17/16 at 11:45; Stop 07/17/16 at 12:44; Status DC Levofloxacin/ Dextrose 150 ml @ 100 mls/hr 1X ONCE IV Last administered on 14:22; Start 07/17/16 at 13:45; Stop 07/17/16 at 15:14; Status DC Clindamycin Phosphate 50 ml @ 100 mls/hr Q8HRS IV Last administered on 05:28; Start 07/17/16 at 22:00; Stop 07/21/16 at 16:33; Status DC Clindamycin Phosphate (Cleocin 600 Mg Premix) 50 ml @ 100 mls/hr ONCE ONCE IV Last administered on 07/17/16 13:49; Start 07/17/16 at 13:45; Stop 07/17/16 at 19:13; Status DC Lidocaine/ Epinephrine (Let Topical) 3 ml 1X ONCE TP Last administered on 07/17 14:34; Start 07/17/16 at 14:30; Stop 07/17/16 at 14:31; Status DC Lidocaine/ Epinephrine (Xylocaine 1%-Epi 1:100,000) 20 ml 1X ONCE INJ Last administered on 07/17/16 14:37; Start 07/17/16 at 14:30; Stop 07/17/16 at 14:31 ; Status DC Tetanus/ Diphtheria Toxoids Adsorbed (Tenivac Syringe) 0.5 ml ONCE ONCE VAX IM Last administered on 07/17/16 14:37; Start 07/17/16 at 14:30; Stop 07/17/16 at 14:31; Status DC Ondansetron HCl (Zofran) 4 mg PRN Q8HRS PRN IV NAUSEA/VOMITING; Start 07/17/16 at 14:45; Stop 07/18/16 at 14:44; Status DC Acetaminophen (Tylenol) 650 mg PRN Q4HRS PRN PO FEVER; Start 07/17/16 at 14:45 ; Stop 07/18/16 at 14:44; Status DC Acetaminophen (Tylenol) 325 mg PRN Q6HRS PRN [place] MILD PAIN / TEMP; Start at 15:30 Acetaminophen (Tylenol) 325 mg 1X ONCE OK ; Start 07/17/16 at 15:30; Stop 07/17 at 15:31; Status DC Acetaminophen (Acetaminophen Supp) 650 mg STK-MED ONCE .ROUTE ; Start 07/17/16 at 15:21; Stop 07/17/16 at 15:22; Status DC Acetaminophen 650 mg 650 mg 1X ONCE OK Last administered on 07/17/16 15:27; Start 07/17/16 at 15:45; Stop 07/17/16 at 15:46; Status DC Sodium Chloride (Iv Sodium Chloride 0.9% 1000ml Bag) 1,000 ml @ 125 mls/hr 1X ONCE IV ; Start 07/17/16 at 15:45; Stop 07/17/16 at 23:44; Status DC Acetaminophen 650 mg 650 mg 1X ONCE OK ; Start 07/17/16 at 15:30; Stop at 15:31; Status DC Sodium Chloride 1,000 ml @ 125 mls/hr Q8H IV Last administered on 07/17/16 18 :22; Start 07/17/16 at 17:30; Stop 07/17/16 at 19:13; Status DC Levetiracetam/ Sodium Chloride (Keppra/Iv Sodium Chloride 0.9% 100ml) 105 ml @ 400 mls/hr Q12HR IV Last administered on 07/21/16 09:08; Start 07/17/16 at 21: 00; Stop 07/21/16 at 20:50; Status DC Isosorbide Mononitrate (Imdur) 60 mg DAILY PO ; Start 07/18/16 at 09:00; Stop at 09:00; Status DC Levothyroxine Sodium (Synthroid) 25 mcg DAILY07 PO ; Start 07/18/16 at 09:00; Stop 07/20/16 at 13:27; Status DC Lisinopril (Prinivil) 20 mg DAILY PO Last administered on 07/22/16 08:26; Start 07/18/16 at 09:00 Simvastatin (Zocor) 20 mg DAILY PO Last administered on 07/22/16 08:26; Start 07/18/16 at 09:00 Isosorbide Mononitrate 60 mg 60 mg DAILY PO ; Start 07/18/16 at 09:00; Stop at 13:01; Status DC Potassium Chloride 10 meq/ Sodium Chloride 1,005 ml @ 75 mls/hr [id number] PRN IV . Last administered on 07/20/16 02:51; Start 07/17/16 at 19:00; Stop 07/20/16 at 11:14; Status DC Meropenem/Sodium Chloride (Merrem/Iv Sodium Chloride 0.9% 50ml) 50 ml @ 100 mls /hr Q8H IV Last administered on 07/21/16 13:43; Start 07/18/16 at 04:00; Stop 07/21/16 at 16:33; Status DC Famotidine (Pepcid) 20 mg QHS PO Last administered on 07/21/16 21:30; Start at 21:00 Hydralazine HCl (Apresoline) 10 mg PRN Q4HRS PRN IVP ELEVATED BP, SEE COMMENTS Last administered on 07/21/16 09:38; Start 07/18/16 at 12:30 Ondansetron HCl (Zofran) 4 mg PRN Q6HRS PRN IV NAUSEA/VOMITING; Start 07/18/16 at 12:30 Iohexol 75 ml 75 ml 1X ONCE IV Last administered on 07/18/16 15:15; Start at 15:15; Stop 07/18/16 at 15:16; Status DC Potassium Chloride (KCl Premix 10meq) 100 ml @ 100 mls/hr Q1H IV Last administered on 07/19/16 18:45; Start 07/19/16 at 09:00; Stop 07/19/16 at 12:59 ; Status DC Iohexol (Omnipaque 300 Mg/ml) 75 ml 1X ONCE IV ; Start 07/19/16 at 10:15; Stop 07/19/16 at 10:17; Status DC Info 1 each 1 each PRN DAILY PRN MC SEE COMMENTS; Start 07/19/16 at 10:15; Stop 07/21/16 at 10:14; Status DC Magnesium Sulfate/ Dextrose 50 ml @ 25 mls/hr 1X ONCE IV Last administered on 07/19/16 14:10; Start 07/19/16 at 13:00; Stop 07/19/16 at 14:59; Status DC Amino Acids/ Glycerin/ Electrolytes (Procalamine) 1,000 ml @ 80 mls/hr [id number] IV Last administered on 07/22/16 00:45; Start 07/20/16 at 11:15; Stop at 11:32; Status DC Albuterol/ Ipratropium (Duoneb) 3 ml RTQID NEB Last administered on 07/22/16 10:47; Start 07/20/16 at 12:00 Albuterol Sulfate 2.5 mg 2.5 mg PRN Q4HRS PRN NEB SHORTNESS OF BREATH; Start at 11:15 Levothyroxine Sodium 20 mcg/ Sodium Chloride 5 ml @ 100 mls/hr DAILY IVP ; Start 07/21/16 at 09:00; Stop 07/21/16 at 09:00; Status DC Levothyroxine Sodium 20 mcg/ Sodium Chloride 5 ml @ 100 mls/hr DAILY IVP Last administered on 07/22/16 08:34; Start 07/20/16 at 14:00; Stop 07/22/16 at 10:33 ; Status DC Potassium Chloride (KCl Premix 10meq) 100 ml @ 100 mls/hr Q1H IV Last administered on 07/21/16 12:30; Start 07/21/16 at 11:30; Stop 07/21/16 at 13:29 ; Status DC Barium Sulfate (Varibar Thin Liquid Apple) 148 gm 1X ONCE PO Last administered on 07/21/16 14:19; Start 07/21/16 at 11:00; Stop 07/21/16 at 11:01 ; Status DC Nicotine (Nicoderm Cq 21mg) 1 patch DAILY TD Last administered on 07/22/16 08: 27; Start 07/21/16 at 14:00 Levetiracetam (Keppra) 500 mg BID PO Last administered on 07/22/16 08:26; Start 07/21/16 at 21:00 Levothyroxine Sodium (Synthroid) 50 mcg DAILY07 PO ; Start 07/23/16 at 07:00 Active Scripts Active Levetiracetam 500 Mg Tablet 500 Mg PO BID 30 Days Synthroid (Levothyroxine Sodium) 50 Mcg Tablet 50 Mcg PO DAILY07 Reported Simvastatin 20 Mg Tablet 20 Mg PO DAILY Aspir 81 (Aspirin) 81 Mg Tablet.dr 1 Tab PO HS Lisinopril 20 Mg Tablet 1 Tab PO DAILY Clopidogrel (Clopidogrel Bisulfate) 75 Mg Tablet 1 Tab PO DAILY Trazodone Hcl 50 Mg Tablet 1 Tab PO QHS Vitals/I & O Vital Sign - Last 24 Hours 07/21/16 07/21/16 07/21/16 07/21/16 15:00 15:32 19:00 19:00 Temp 98.2 98.0 98.2 98.2 98.0 98.2 Pulse 74 88 74 Resp 18 B/P 156/82 150/77 156/82 Pulse Ox 94 96 94 O2 Delivery Room Air Room Air Room Air Room Air O2 Flow Rate 2.0 07/21/16 07/21/16 07/22/16 07/22/16 19:36 23:00 03:00 03:00 Temp 99.0 97.0 99.0 99.0 97.0 99.0 Pulse 89 96 89 Resp 16 18 B/P 145/83 151/82 145/83 Pulse Ox 94 95 95 95 O2 Delivery Room Air Room Air Room Air Room Air O2 Flow Rate 2.0 07/22/16 07/22/16 07/22/16 07/22/16 06:55 07:37 08:00 08:26 Temp 97.4 97.4 Pulse 73 73 Resp 20 B/P 184/99 184/99 Pulse Ox 95 97 O2 Delivery Room Air Room Air Room Air 07/22/16 07/22/16 10:48 11:04 Temp 97.7 97.7 Pulse 90 Resp 18 B/P 141/78 Pulse Ox 97 94 O2 Delivery Room Air Room Air Intake and Output 07/21/16 07/21/16 07/22/16 15:00 23:00 07:00 Intake Total 300 ml 1260 ml Output Total 200 ml Balance -200 ml 300 ml 1260 ml Nutrition Consultation Dietary Evaluation: Recommendations by RD: PPN/TPN Comments: continue ppn for short term nutrition at this time Expected Outcomes/Goals: diet advancement - met new goal: to meet > 50% est nutr needs via po intake Interpretation of weight loss: >20% in 1 year Malnutrition Findings: Body Fat Depletion (Non Severe: Mild Depletion Weight Status: Appropriate TRESSA WILD MD Jul 22, 2016 13:54
[2016-07-22 14:15] VITALS: BP 121/81
[2016-07-22 19:00] VITALS: BP 147/72
[2016-07-22] MEDS: FAMOTIDINE 20 MG TABLET. PO SCH (20:47)
[2016-07-22 23:08] VITALS: BP 152/77
[2016-07-23] VITALS (7 sets, daily range): BP systolic 120–169; BP diastolic 62–86
[2016-07-23] MEDS: LEVOTHYROXINE 50 MCG TABLET PO SCH (06:27)
[2016-07-23] MEDS: IPRATRPIUM/ALBUTEROL 0.5/2.5MG 3 ML NEBU. NEB SCH ×4 (07:07→22:21)
[2016-07-23] MEDS: NICOTINE 21MG PATCH. TD SCH (09:00)
[2016-07-23] MEDS: LEVETIRACETAM 500 MG TABLET. PO SCH ×2 (09:51→21:45)
[2016-07-23] MEDS: SIMVASTATIN 20 MG TABLET PO SCH (09:51)
[2016-07-23] MEDS: LISINOPRIL 20 MG TABLET PO SCH (09:51)
--- NOTE | 2016-07-23 13:21 | PDOC ---
PROGRESS NOTES Chief Complaint Chief Complaint traumatic subarachnoid hemorrhage history of syncope Possible prior dementia h/o CAD hypothyroidism fever, 2/2 hemorrhage likely leukocytosis, reactive likely hypokalemia hypomagnesemia plan: fu with Neuro repeat MRI head 07/18,not conclusive CTA 07/19, CT 07/20, neg aneurysm cont home meds, hold asa, plavix gi ppx dced abx PTOT replete K, Mag dysphagia 2 diet, dc ppn synthroid increase to 50mcg daily now off1 to 1 ob pt can be dced to SNF, [facility] denies her. pt is more talkative on 07/23, however, refused to go to SNF ,saying her sister wanted her to go to a SNF where nobody can visit her. pt likely has a very poor home environment, living alone, need SW to talk to family and pt and dc to SNF on Monday. History of Present Illness History of Present Illness more awake on 07/19, answer some questions, follow commands by squeezing hands knows in [place], but now get confused about place again know the year and month on 07/23 looks flat able to walk with help 1 to 1 ob, off on 07/23 high tsh, not taking her meds at home Vitals Vitals Vital Signs Date Time Temp Pulse Resp B/P Pulse Ox O2 Delivery O2 Flow Rate FiO2 07/23/16 11:31 Room Air 07/23/16 11:00 97.3 84 18 152/86 95 97.3 07/22/16 20:20 2.0 Physical Exam Physical Exam more awake on 07/19, answer some questions, follow commands by squeezing hands knows in [place], but said it is 04/2015 General: Alert Heart: Regular rate, Normal S1, Normal S2 Lungs: Clear Abdomen: Normal bowel sounds, Soft Extremities: No clubbing, No cyanosis Skin: No rashes Review of Systems Review of Systems no fever, chills, sob or chest pain Assessment and Plan Assessmemt and Plan Problems Medical Problems: (1) Altered mental status Status: Acute (2) Closed head injury Status: Acute (3) Dehydration Status: Acute (4) Subarachnoid hemorrhage Status: Acute Problems: Comment Review of Relevant I have reviewed the following items wesly (where applicable) has been applied. Labs Laboratory Tests Test 07/22/16 04:50 White Blood Count 11.9x10^3/uL (4.0-11.0) Red Blood Count 4.16x10^6/uL (3.50-5.40) Hemoglobin 13.5g/dL (12.0-15.5) Hematocrit 40.1% (36.0-47.0) Mean Corpuscular Volume 97fL (79-100) Mean Corpuscular Hemoglobin 33pg (25-35) Mean Corpuscular Hemoglobin Concent 34g/dL (31-37) Red Cell Distribution Width 15.3% (11.5-14.5) Platelet Count 114x10^3/uL (140-400) Sodium Level 144mmol/L (136-145) Potassium Level 3.8mmol/L (3.5-5.1) Chloride Level 109mmol/L (98-107) Carbon Dioxide Level 29mmol/L (21-32) Anion Gap 6 (6-14) Blood Urea Nitrogen 13mg/dL (7-20) Creatinine 0.7mg/dL (0.6-1.0) Estimated GFR (Cockcroft-Gault) 83.2 Glucose Level 111mg/dL (70-99) Calcium Level 9.8mg/dL (8.5-10.1) Microbiology 07/17/16 Blood Culture - Final, Complete NO GROWTH AFTER 5 DAYS Medications Current Medications Sodium Chloride 1,000 ml @ 1,000 mls/hr 1X ONCE IV Last administered on 11:46; Start 07/17/16 at 11:45; Stop 07/17/16 at 12:44; Status DC Levofloxacin/ Dextrose 150 ml @ 100 mls/hr 1X ONCE IV Last administered on 14:22; Start 07/17/16 at 13:45; Stop 07/17/16 at 15:14; Status DC Clindamycin Phosphate 50 ml @ 100 mls/hr Q8HRS IV Last administered on 05:28; Start 07/17/16 at 22:00; Stop 07/21/16 at 16:33; Status DC Clindamycin Phosphate (Cleocin 600 Mg Premix) 50 ml @ 100 mls/hr ONCE ONCE IV Last administered on 07/17/16 13:49; Start 07/17/16 at 13:45; Stop 07/17/16 at 19:13; Status DC Lidocaine/ Epinephrine (Let Topical) 3 ml 1X ONCE TP Last administered on 07/17 14:34; Start 07/17/16 at 14:30; Stop 07/17/16 at 14:31; Status DC Lidocaine/ Epinephrine (Xylocaine 1%-Epi 1:100,000) 20 ml 1X ONCE INJ Last administered on 07/17/16 14:37; Start 07/17/16 at 14:30; Stop 07/17/16 at 14:31 ; Status DC Tetanus/ Diphtheria Toxoids Adsorbed (Tenivac Syringe) 0.5 ml ONCE ONCE VAX IM Last administered on 07/17/16 14:37; Start 07/17/16 at 14:30; Stop 07/17/16 at 14:31; Status DC Ondansetron HCl (Zofran) 4 mg PRN Q8HRS PRN IV NAUSEA/VOMITING; Start 07/17/16 at 14:45; Stop 07/18/16 at 14:44; Status DC Acetaminophen (Tylenol) 650 mg PRN Q4HRS PRN PO FEVER; Start 07/17/16 at 14:45 ; Stop 07/18/16 at 14:44; Status DC Acetaminophen (Tylenol) 325 mg PRN Q6HRS PRN NV MILD PAIN / TEMP; Start at 15:30 Acetaminophen (Tylenol) 325 mg 1X ONCE NV ; Start 07/17/16 at 15:30; Stop 07/17 at 15:31; Status DC Acetaminophen (Acetaminophen Supp) 650 mg STK-MED ONCE .ROUTE ; Start 07/17/16 at 15:21; Stop 07/17/16 at 15:22; Status DC Acetaminophen 650 mg 650 mg 1X ONCE NV Last administered on 07/17/16 15:27; Start 07/17/16 at 15:45; Stop 07/17/16 at 15:46; Status DC Sodium Chloride (Iv Sodium Chloride 0.9% 1000ml Bag) 1,000 ml @ 125 mls/hr 1X ONCE IV ; Start 07/17/16 at 15:45; Stop 07/17/16 at 23:44; Status DC Acetaminophen 650 mg 650 mg 1X ONCE NV ; Start 07/17/16 at 15:30; Stop at 15:31; Status DC Sodium Chloride 1,000 ml @ 125 mls/hr Q8H IV Last administered on 07/17/16 18 :22; Start 07/17/16 at 17:30; Stop 07/17/16 at 19:13; Status DC Levetiracetam/ Sodium Chloride (Keppra/Iv Sodium Chloride 0.9% 100ml) 105 ml @ 400 mls/hr Q12HR IV Last administered on 07/21/16 09:08; Start 07/17/16 at 21: 00; Stop 07/21/16 at 20:50; Status DC Isosorbide Mononitrate (Imdur) 60 mg DAILY PO ; Start 07/18/16 at 09:00; Stop at 09:00; Status DC Levothyroxine Sodium (Synthroid) 25 mcg DAILY07 PO ; Start 07/18/16 at 09:00; Stop 07/20/16 at 13:27; Status DC Lisinopril (Prinivil) 20 mg DAILY PO Last administered on 07/23/16 09:51; Start 07/18/16 at 09:00 Simvastatin (Zocor) 20 mg DAILY PO Last administered on 07/23/16 09:51; Start 07/18/16 at 09:00 Isosorbide Mononitrate 60 mg 60 mg DAILY PO ; Start 07/18/16 at 09:00; Stop at 13:01; Status DC Potassium Chloride 10 meq/ Sodium Chloride 1,005 ml @ 75 mls/hr [id number] PRN IV . Last administered on 07/20/16 02:51; Start 07/17/16 at 19:00; Stop 07/20/16 at 11:14; Status DC Meropenem/Sodium Chloride (Merrem/Iv Sodium Chloride 0.9% 50ml) 50 ml @ 100 mls /hr Q8H IV Last administered on 07/21/16 13:43; Start 07/18/16 at 04:00; Stop 07/21/16 at 16:33; Status DC Famotidine (Pepcid) 20 mg QHS PO Last administered on 07/22/16 20:47; Start at 21:00 Hydralazine HCl (Apresoline) 10 mg PRN Q4HRS PRN IVP ELEVATED BP, SEE COMMENTS Last administered on 07/21/16 09:38; Start 07/18/16 at 12:30 Ondansetron HCl (Zofran) 4 mg PRN Q6HRS PRN IV NAUSEA/VOMITING; Start 07/18/16 at 12:30 Iohexol 75 ml 75 ml 1X ONCE IV Last administered on 07/18/16 15:15; Start at 15:15; Stop 07/18/16 at 15:16; Status DC Potassium Chloride (KCl Premix 10meq) 100 ml @ 100 mls/hr Q1H IV Last administered on 07/19/16 18:45; Start 07/19/16 at 09:00; Stop 07/19/16 at 12:59 ; Status DC Iohexol (Omnipaque 300 Mg/ml) 75 ml 1X ONCE IV ; Start 07/19/16 at 10:15; Stop 07/19/16 at 10:17; Status DC Info 1 each 1 each PRN DAILY PRN MC SEE COMMENTS; Start 07/19/16 at 10:15; Stop 07/21/16 at 10:14; Status DC Magnesium Sulfate/ Dextrose 50 ml @ 25 mls/hr 1X ONCE IV Last administered on 07/19/16 14:10; Start 07/19/16 at 13:00; Stop 07/19/16 at 14:59; Status DC Amino Acids/ Glycerin/ Electrolytes (Procalamine) 1,000 ml @ 80 mls/hr [id number] IV Last administered on 07/22/16 00:45; Start 07/20/16 at 11:15; Stop at 11:32; Status DC Albuterol/ Ipratropium (Duoneb) 3 ml RTQID NEB Last administered on 07/23/16 11:30; Start 07/20/16 at 12:00 Albuterol Sulfate 2.5 mg 2.5 mg PRN Q4HRS PRN NEB SHORTNESS OF BREATH; Start at 11:15 Levothyroxine Sodium 20 mcg/ Sodium Chloride 5 ml @ 100 mls/hr DAILY IVP ; Start 07/21/16 at 09:00; Stop 07/21/16 at 09:00; Status DC Levothyroxine Sodium 20 mcg/ Sodium Chloride 5 ml @ 100 mls/hr DAILY IVP Last administered on 07/22/16 08:34; Start 07/20/16 at 14:00; Stop 07/22/16 at 10:33 ; Status DC Potassium Chloride (KCl Premix 10meq) 100 ml @ 100 mls/hr Q1H IV Last administered on 07/21/16 12:30; Start 07/21/16 at 11:30; Stop 07/21/16 at 13:29 ; Status DC Barium Sulfate (Varibar Thin Liquid Apple) 148 gm 1X ONCE PO Last administered on 07/21/16 14:19; Start 07/21/16 at 11:00; Stop 07/21/16 at 11:01 ; Status DC Nicotine (Nicoderm Cq 21mg) 1 patch DAILY TD Last administered on 07/22/16 08: 27; Start 07/21/16 at 14:00 Levetiracetam (Keppra) 500 mg BID PO Last administered on 07/23/16 09:51; Start 07/21/16 at 21:00 Levothyroxine Sodium (Synthroid) 50 mcg DAILY07 PO Last administered on 06:27; Start 07/23/16 at 07:00 Active Scripts Active Levetiracetam 500 Mg Tablet 500 Mg PO BID 30 Days Synthroid (Levothyroxine Sodium) 50 Mcg Tablet 50 Mcg PO DAILY07 Reported Simvastatin 20 Mg Tablet 20 Mg PO DAILY Aspir 81 (Aspirin) 81 Mg Tablet.dr 1 Tab PO HS Lisinopril 20 Mg Tablet 1 Tab PO DAILY Clopidogrel (Clopidogrel Bisulfate) 75 Mg Tablet 1 Tab PO DAILY Trazodone Hcl 50 Mg Tablet 1 Tab PO QHS Vitals/I & O Vital Sign - Last 24 Hours 07/22/16 07/22/16 07/22/16 07/22/16 14:15 16:00 19:00 20:20 Temp 98.1 98.9 98.1 98.9 Pulse 88 79 Resp 19 18 B/P 121/81 147/72 Pulse Ox 95 94 O2 Delivery Room Air Room Air Room Air Room Air O2 Flow Rate 2.0 07/22/16 07/22/16 07/23/16 07/23/16 20:30 23:08 03:00 07:00 Temp 98.3 98.7 97.5 98.3 98.7 97.5 Pulse 71 75 84 Resp 20 18 18 B/P 152/77 150/70 133/62 Pulse Ox 95 95 94 O2 Delivery Room Air Room Air Room Air Room Air 07/23/16 07/23/16 07/23/16 07/23/16 08:15 09:51 11:00 11:31 Temp 97.6 97.3 97.6 97.3 Pulse 84 84 84 Resp 18 18 B/P 157/77 157/77 152/86 Pulse Ox 94 95 O2 Delivery Room Air Room Air Room Air Intake and Output 07/22/16 07/22/16 07/23/16 15:00 23:00 07:00 Intake Total 200 ml 800 ml Balance 200 ml 800 ml Nutrition Consultation Dietary Evaluation: Recommendations by RD: PPN/TPN Comments: continue ppn for short term nutrition at this time Expected Outcomes/Goals: diet advancement - met new goal: to meet > 50% est nutr needs via po intake Interpretation of weight loss: >20% in 1 year Malnutrition Findings: Body Fat Depletion (Non Severe: Mild Depletion Weight Status: Appropriate TRESSA WILD MD Jul 23, 2016 13:21
[2016-07-23] MEDS: FAMOTIDINE 20 MG TABLET. PO SCH (21:44)
[2016-07-24 03:15] VITALS: BP 161/64
[2016-07-24] MEDS: LEVOTHYROXINE 50 MCG TABLET PO SCH (06:16)
[2016-07-24] MEDS: IPRATRPIUM/ALBUTEROL 0.5/2.5MG 3 ML NEBU. NEB SCH ×4 (06:23→21:19)
[2016-07-24 07:00] VITALS: BP 176/76
[2016-07-24] MEDS: NICOTINE 21MG PATCH. TD SCH (09:00)
[2016-07-24] MEDS: LEVETIRACETAM 500 MG TABLET. PO SCH ×2 (09:01→21:02)
[2016-07-24] MEDS: SIMVASTATIN 20 MG TABLET PO SCH (09:02)
[2016-07-24] MEDS: LISINOPRIL 20 MG TABLET PO SCH (09:02)
[2016-07-24] MEDS ORDERED: LISINOPRIL 20 MG TABLET PO ONE (09:45)
[2016-07-24] MEDS ORDERED: cloNIDine HCL 0.1 MG TABLET PO PRN (10:45)
[2016-07-24 11:00] VITALS: BP 147/71
--- NOTE | 2016-07-24 13:13 | PDOC ---
PROGRESS NOTES Chief Complaint Chief Complaint traumatic subarachnoid hemorrhage history of syncope likely prior dementia h/o CAD hypothyroidism fever, 2/2 hemorrhage likely leukocytosis, reactive likely hypokalemia hypomagnesemia plan: fu with Neuro repeat MRI head 07/18,not conclusive CTA 07/19, CT 07/20, neg aneurysm cont home meds, hold asa, plavix gi ppx dced abx PTOT replete K, Mag dysphagia 2 diet, dc ppn synthroid increase to 50mcg daily now off1 to 1 ob increase lisinopril to 40mg daily, clonidine prn pt could be dced to SNF, [facility] denies her. pt is more talkative on 07/23, however, refused to go to SNF ,saying her sister wanted her to go to a SNF where nobody can visit her. pt likely has a very poor home environment, living alone, need SW to talk to family and pt and dc to SNF on Monday. History of Present Illness History of Present Illness more awake on 07/19, answer some questions, follow commands by squeezing hands knows in [place], but now get confused about place again know the year and month on 07/23 looks flat able to walk with help 1 to 1 ob, off on 07/23 high tsh, not taking her meds at home Vitals Vitals Vital Signs Date Time Temp Pulse Resp B/P Pulse Ox O2 Delivery O2 Flow Rate FiO2 07/24/16 11:00 98.5 63 20 147/71 97 Room Air 98.5 Physical Exam Physical Exam more awake on 07/19, answer some questions, follow commands by squeezing hands knows in [place], but said it is 04/2015 General: Alert Heart: Regular rate, Normal S1, Normal S2 Lungs: Clear Abdomen: Normal bowel sounds, Soft Extremities: No clubbing, No cyanosis Skin: No rashes Review of Systems Review of Systems no fever, chills, sob or chest pain Assessment and Plan Assessmemt and Plan Problems Medical Problems: (1) Altered mental status Status: Acute (2) Closed head injury Status: Acute (3) Dehydration Status: Acute (4) Subarachnoid hemorrhage Status: Acute Problems: Comment Review of Relevant I have reviewed the following items wesly (where applicable) has been applied. Labs Microbiology 07/17/16 Blood Culture - Final, Complete NO GROWTH AFTER 5 DAYS Medications Current Medications Sodium Chloride 1,000 ml @ 1,000 mls/hr 1X ONCE IV Last administered on 11:46; Start 07/17/16 at 11:45; Stop 07/17/16 at 12:44; Status DC Levofloxacin/ Dextrose 150 ml @ 100 mls/hr 1X ONCE IV Last administered on 14:22; Start 07/17/16 at 13:45; Stop 07/17/16 at 15:14; Status DC Clindamycin Phosphate 50 ml @ 100 mls/hr Q8HRS IV Last administered on 05:28; Start 07/17/16 at 22:00; Stop 07/21/16 at 16:33; Status DC Clindamycin Phosphate (Cleocin 600 Mg Premix) 50 ml @ 100 mls/hr ONCE ONCE IV Last administered on 07/17/16 13:49; Start 07/17/16 at 13:45; Stop 07/17/16 at 19:13; Status DC Lidocaine/ Epinephrine (Let Topical) 3 ml 1X ONCE TP Last administered on 07/17 14:34; Start 07/17/16 at 14:30; Stop 07/17/16 at 14:31; Status DC Lidocaine/ Epinephrine (Xylocaine 1%-Epi 1:100,000) 20 ml 1X ONCE INJ Last administered on 07/17/16 14:37; Start 07/17/16 at 14:30; Stop 07/17/16 at 14:31 ; Status DC Tetanus/ Diphtheria Toxoids Adsorbed (Tenivac Syringe) 0.5 ml ONCE ONCE VAX IM Last administered on 07/17/16 14:37; Start 07/17/16 at 14:30; Stop 07/17/16 at 14:31; Status DC Ondansetron HCl (Zofran) 4 mg PRN Q8HRS PRN IV NAUSEA/VOMITING; Start 07/17/16 at 14:45; Stop 07/18/16 at 14:44; Status DC Acetaminophen (Tylenol) 650 mg PRN Q4HRS PRN PO FEVER; Start 07/17/16 at 14:45 ; Stop 07/18/16 at 14:44; Status DC Acetaminophen (Tylenol) 325 mg PRN Q6HRS PRN IN MILD PAIN / TEMP; Start at 15:30 Acetaminophen (Tylenol) 325 mg 1X ONCE IN ; Start 07/17/16 at 15:30; Stop 07/17 at 15:31; Status DC Acetaminophen (Acetaminophen Supp) 650 mg STK-MED ONCE .ROUTE ; Start 07/17/16 at 15:21; Stop 07/17/16 at 15:22; Status DC Acetaminophen 650 mg 650 mg 1X ONCE IN Last administered on 07/17/16 15:27; Start 07/17/16 at 15:45; Stop 07/17/16 at 15:46; Status DC Sodium Chloride (Iv Sodium Chloride 0.9% 1000ml Bag) 1,000 ml @ 125 mls/hr 1X ONCE IV ; Start 07/17/16 at 15:45; Stop 07/17/16 at 23:44; Status DC Acetaminophen 650 mg 650 mg 1X ONCE IN ; Start 07/17/16 at 15:30; Stop at 15:31; Status DC Sodium Chloride 1,000 ml @ 125 mls/hr Q8H IV Last administered on 07/17/16 18 :22; Start 07/17/16 at 17:30; Stop 07/17/16 at 19:13; Status DC Levetiracetam/ Sodium Chloride (Keppra/Iv Sodium Chloride 0.9% 100ml) 105 ml @ 400 mls/hr Q12HR IV Last administered on 07/21/16 09:08; Start 07/17/16 at 21: 00; Stop 07/21/16 at 20:50; Status DC Isosorbide Mononitrate (Imdur) 60 mg DAILY PO ; Start 07/18/16 at 09:00; Stop at 09:00; Status DC Levothyroxine Sodium (Synthroid) 25 mcg DAILY07 PO ; Start 07/18/16 at 09:00; Stop 07/20/16 at 13:27; Status DC Lisinopril (Prinivil) 20 mg DAILY PO Last administered on 07/24/16 09:02; Start 07/18/16 at 09:00; Stop 07/24/16 at 09:32; Status DC Simvastatin (Zocor) 20 mg DAILY PO Last administered on 07/24/16 09:02; Start 07/18/16 at 09:00 Isosorbide Mononitrate 60 mg 60 mg DAILY PO ; Start 07/18/16 at 09:00; Stop at 13:01; Status DC Potassium Chloride 10 meq/ Sodium Chloride 1,005 ml @ 75 mls/hr [id number] PRN IV . Last administered on 07/20/16 02:51; Start 07/17/16 at 19:00; Stop 07/20/16 at 11:14; Status DC Meropenem/Sodium Chloride (Merrem/Iv Sodium Chloride 0.9% 50ml) 50 ml @ 100 mls /hr Q8H IV Last administered on 07/21/16 13:43; Start 07/18/16 at 04:00; Stop 07/21/16 at 16:33; Status DC Famotidine (Pepcid) 20 mg QHS PO Last administered on 07/23/16 21:44; Start at 21:00 Hydralazine HCl (Apresoline) 10 mg PRN Q4HRS PRN IVP ELEVATED BP, SEE COMMENTS Last administered on 07/21/16 09:38; Start 07/18/16 at 12:30 Ondansetron HCl (Zofran) 4 mg PRN Q6HRS PRN IV NAUSEA/VOMITING; Start 07/18/16 at 12:30 Iohexol 75 ml 75 ml 1X ONCE IV Last administered on 07/18/16 15:15; Start at 15:15; Stop 07/18/16 at 15:16; Status DC Potassium Chloride (KCl Premix 10meq) 100 ml @ 100 mls/hr Q1H IV Last administered on 07/19/16 18:45; Start 07/19/16 at 09:00; Stop 07/19/16 at 12:59 ; Status DC Iohexol (Omnipaque 300 Mg/ml) 75 ml 1X ONCE IV ; Start 07/19/16 at 10:15; Stop 07/19/16 at 10:17; Status DC Info 1 each 1 each PRN DAILY PRN MC SEE COMMENTS; Start 07/19/16 at 10:15; Stop 07/21/16 at 10:14; Status DC Magnesium Sulfate/ Dextrose 50 ml @ 25 mls/hr 1X ONCE IV Last administered on 07/19/16 14:10; Start 07/19/16 at 13:00; Stop 07/19/16 at 14:59; Status DC Amino Acids/ Glycerin/ Electrolytes (Procalamine) 1,000 ml @ 80 mls/hr [id number] IV Last administered on 07/22/16 00:45; Start 07/20/16 at 11:15; Stop at 11:32; Status DC Albuterol/ Ipratropium (Duoneb) 3 ml RTQID NEB Last administered on 07/24/16 10:56; Start 07/20/16 at 12:00 Albuterol Sulfate 2.5 mg 2.5 mg PRN Q4HRS PRN NEB SHORTNESS OF BREATH; Start at 11:15 Levothyroxine Sodium 20 mcg/ Sodium Chloride 5 ml @ 100 mls/hr DAILY IVP ; Start 07/21/16 at 09:00; Stop 07/21/16 at 09:00; Status DC Levothyroxine Sodium 20 mcg/ Sodium Chloride 5 ml @ 100 mls/hr DAILY IVP Last administered on 07/22/16 08:34; Start 07/20/16 at 14:00; Stop 07/22/16 at 10:33 ; Status DC Potassium Chloride (KCl Premix 10meq) 100 ml @ 100 mls/hr Q1H IV Last administered on 07/21/16 12:30; Start 07/21/16 at 11:30; Stop 07/21/16 at 13:29 ; Status DC Barium Sulfate (Varibar Thin Liquid Apple) 148 gm 1X ONCE PO Last administered on 07/21/16 14:19; Start 07/21/16 at 11:00; Stop 07/21/16 at 11:01 ; Status DC Nicotine (Nicoderm Cq 21mg) 1 patch DAILY TD Last administered on 07/22/16 08: 27; Start 07/21/16 at 14:00 Levetiracetam (Keppra) 500 mg BID PO Last administered on 07/24/16 09:01; Start 07/21/16 at 21:00 Levothyroxine Sodium (Synthroid) 50 mcg DAILY07 PO Last administered on 06:16; Start 07/23/16 at 07:00 Lisinopril (Prinivil) 40 mg DAILY PO ; Start 07/25/16 at 09:00 Lisinopril (Prinivil) 20 mg 1X ONCE PO Last administered on 07/24/16t 10:38; Start 07/24/16 at 09:45; Stop 07/24/16 at 09:46; Status DC Clonidine HCl (Catapres) 0.1 mg PRN Q1HR PRN PO HYPERTENSION, SEE COMMENTS; Start 07/24/16 at 10:45 Active Scripts Active Levetiracetam 500 Mg Tablet 500 Mg PO BID 30 Days Synthroid (Levothyroxine Sodium) 50 Mcg Tablet 50 Mcg PO DAILY07 Reported Simvastatin 20 Mg Tablet 20 Mg PO DAILY Aspir 81 (Aspirin) 81 Mg Tablet.dr 1 Tab PO HS Lisinopril 20 Mg Tablet 1 Tab PO DAILY Clopidogrel (Clopidogrel Bisulfate) 75 Mg Tablet 1 Tab PO DAILY Trazodone Hcl 50 Mg Tablet 1 Tab PO QHS Vitals/I & O Vital Sign - Last 24 Hours 07/23/16 07/23/16 07/23/16 07/23/16 15:00 19:20 19:28 20:00 Temp 96.9 97.6 96.9 97.6 Pulse 74 71 Resp 18 18 B/P 120/83 156/69 Pulse Ox 94 96 96 O2 Delivery Room Air Room Air Room Air Room Air 07/23/16 07/24/16 07/24/16 07/24/16 23:09 03:15 06:25 07:00 Temp 98.2 98.9 98.1 98.2 98.9 98.1 Pulse 63 63 63 Resp 16 16 20 B/P 169/69 161/64 176/76 Pulse Ox 97 95 97 94 O2 Delivery Room Air Room Air Room Air Room Air 07/24/16 07/24/16 07/24/16 07/24/16 08:00 09:02 10:38 10:57 Pulse 63 68 B/P 176/76 141/71 Pulse Ox 95 O2 Delivery Room Air Room Air 07/24/16 11:00 Temp 98.5 98.5 Pulse 63 Resp 20 B/P 147/71 Pulse Ox 97 O2 Delivery Room Air Intake and Output 07/23/16 07/23/16 07/24/16 15:00 23:00 07:00 Intake Total 120 ml 200 ml Output Total 100 ml Balance 120 ml 200 ml -100 ml Nutrition Consultation Dietary Evaluation: Recommendations by RD: PPN/TPN Comments: continue ppn for short term nutrition at this time Expected Outcomes/Goals: diet advancement - met new goal: to meet > 50% est nutr needs via po intake Interpretation of weight loss: >20% in 1 year Malnutrition Findings: Body Fat Depletion (Non Severe: Mild Depletion Weight Status: Appropriate TRESSA WILD MD Jul 24, 2016 13:13
[2016-07-24 15:00] VITALS: BP 145/83
[2016-07-24 19:32] VITALS: BP 117/61
[2016-07-24] MEDS: FAMOTIDINE 20 MG TABLET. PO SCH (21:02)
[2016-07-24 23:12] VITALS: BP 111/63
[2016-07-25 02:52] VITALS: BP 147/78
[2016-07-25] MEDS: LEVOTHYROXINE 50 MCG TABLET PO SCH (06:34)
[2016-07-25 06:46] LABS: BASO # 0.1 x10^3/uL (0.0-0.2); BASO % 1 % (0-3); EOS % 2 % (0-3); HEMATOCRIT 37.4 % (36.0-47.0); HEMOGLOBIN 12.8 g/dL (12.0-15.5); LYMPH # 2.7 x10^3/uL (1.0-4.8); LYMPH % 29 % (24-48); MEAN CORPUSCULAR HEMOGLOBIN 33 pg (25-35); MEAN CORPUSCULAR HGB CONC 34 g/dL (31-37); MEAN CORPUSCULAR VOLUME 97 fL (79-100); MONO % 10 % (0-9); NEUT % 59 % (31-73); PLATELET COUNT 153 x10^3/uL (140-400); RED BLOOD COUNT 3.86 x10^6/uL (3.50-5.40); RED CELL DISTRIBUTION WIDTH 15.2 % (11.5-14.5); WHITE BLOOD COUNT 9.3 x10^3/uL (4.0-11.0)
[2016-07-25 07:00] VITALS: BP 148/64
[2016-07-25 07:11] LABS: CALCIUM 8.6 mg/dL (8.5-10.1); CREATININE 0.7 mg/dL (0.6-1.0); GFR 83.2
[2016-07-25] MEDS: IPRATRPIUM/ALBUTEROL 0.5/2.5MG 3 ML NEBU. NEB SCH ×4 (07:23→21:04)
[2016-07-25] MEDS: NICOTINE 21MG PATCH. TD SCH (09:00)
[2016-07-25] MEDS: SIMVASTATIN 20 MG TABLET PO SCH (09:15)
[2016-07-25] MEDS: LISINOPRIL 40 MG TABLET. PO SCH (09:15)
[2016-07-25] MEDS: LEVETIRACETAM 500 MG TABLET. PO SCH ×4 (09:15→22:03)
[2016-07-25] MEDS ORDERED: POTASSIUM CHLORIDE 20 MEQ TABLET.ER. PO ONE ×2 (09:30→12:00)
[2016-07-25 11:00] VITALS: BP 166/73
--- NOTE | 2016-07-25 13:10 | PDOC ---
PROGRESS NOTES Chief Complaint Chief Complaint Traumatic subarachnoid hemorrhage ASSESSMENT AND PLAN: 1. SAH: stable by serial imaging. appreciate Neurology service input. avoid anti-plt agents, blood thinners. can be restarted about 2 weeks post event. on prophylactic Keppra (?duration) 2. HTN: well controlled on clonidine and lisinopril 3. Hypothyroidism: significantly elevated TSH at admit. synthroid increased to 50 4. Hypokalemia: replete orally 5. Hypernatremia: encourage PO fluid intake, monitor 6. Leukocytosis: reactive s/s bleed. resolved 7. CAD: cont home meds save for Asp/plavix 8. Dysphagia: thickened liquids 8. Hx syncope: no events in hospital 9. ?Dementia at baseline 10. Prophylaxis: H2B 11: Dispo: SNF when bed available History of Present Illness History of Present Illness no new issues. agreeable to go to SNF Vitals Vitals Vital Signs Date Time Temp Pulse Resp B/P Pulse Ox O2 Delivery O2 Flow Rate FiO2 07/25/16 11:46 98 Room Air 07/25/16 11:00 98.0 68 22 166/73 98.0 Physical Exam Physical Exam more awake on 07/19, answer some questions, follow commands by squeezing hands knows in [place], but said it is 04/2015 General: Alert, Cooperative, No acute distress Heart: Regular rate Lungs: Clear Abdomen: Normal bowel sounds, Soft, No tenderness Extremities: No clubbing, No cyanosis Skin: No rashes Labs LABS Laboratory Tests Test 07/25/16 06:30 White Blood Count 9.3x10^3/uL (4.0-11.0) Red Blood Count 3.86x10^6/uL (3.50-5.40) Hemoglobin 12.8g/dL (12.0-15.5) Hematocrit 37.4% (36.0-47.0) Mean Corpuscular Volume 97fL (79-100) Mean Corpuscular Hemoglobin 33pg (25-35) Mean Corpuscular Hemoglobin Concent 34g/dL (31-37) Red Cell Distribution Width 15.2% (11.5-14.5) Platelet Count 153x10^3/uL (140-400) Neutrophils (%) (Auto) 59% (31-73) Lymphocytes (%) (Auto) 29% (24-48) Monocytes (%) (Auto) 10% (0-9) Eosinophils (%) (Auto) 2% (0-3) Basophils (%) (Auto) 1% (0-3) Neutrophils # (Auto) 5.5x10^3uL (1.8-7.7) Lymphocytes # (Auto) 2.7x10^3/uL (1.0-4.8) Monocytes # (Auto) 0.9x10^3/uL (0.0-1.1) Eosinophils # (Auto) 0.2x10^3/uL (0.0-0.7) Basophils # (Auto) 0.1x10^3/uL (0.0-0.2) Sodium Level 147mmol/L (136-145) Potassium Level 3.0mmol/L (3.5-5.1) Chloride Level 108mmol/L (98-107) Carbon Dioxide Level 30mmol/L (21-32) Anion Gap 9 (6-14) Blood Urea Nitrogen 8mg/dL (7-20) Creatinine 0.7mg/dL (0.6-1.0) Estimated GFR (Cockcroft-Gault) 83.2 Glucose Level 95mg/dL (70-99) Calcium Level 8.6mg/dL (8.5-10.1) Nutrition Consultation Dietary Evaluation: Recommendations by RD: PPN/TPN Comments: continue ppn for short term nutrition at this time Expected Outcomes/Goals: diet advancement - met new goal: to meet > 50% est nutr needs via po intake Interpretation of weight loss: >20% in 1 year Malnutrition Findings: Body Fat Depletion (Non Severe: Mild Depletion Weight Status: Appropriate PAU LAL MD Jul 25, 2016 13:09
[2016-07-25 15:00] VITALS: BP 148/79
--- NOTE | 2016-07-25 15:15 | PDOC ---
PROGRESS NOTES Assessment Assessment IMPRESSION: Traumatic SAH Fall Hx of syncope. COPD HTN HLD Dementia features. No evidence of AVM or aneurysm on CTA. RECOMMENDATIONS/PLAN: Continue medical treatment. BP control Continue Zocor 20 mg HS. Avoid anticoagulant and antiplatelet agents at the present time. OT/PT. Fall prevention. SUBJECTIVE: No headache. OBJECTIVE: No new deficits. PAST MEDICAL AND SURGICAL HISTORY: Please see H&P ALLERGY: Reviewed. MEDICATIONS: Refer to MAR REVIEW OF SYSTEMS: Constitutional: No malnutrition, weight loss, cachexia. Head: Head injury from fall. Skin: No edema, or rash. Ear: No infection. Eyes: No vision loss, or diplopia. Nose: No bleeding or purulent discharges. Hearing: No hearing decrease. Neck: No injury. Breast: No history of cancer, masses, or discharges. Cardiac: HTN, HLD Pulmonary: COPD. GI: No GI Ulcer, GI bleeding Urinary/genital: UTI. Endocrine: No cousin face, craniofacial dysmorphism, polydactyly. Skeletomuscular: No muscular atrophy, deformity. Neurological: see HP. Psychiatric: Denies drug use/abuse. Otherwise, not [id number] review of systems. PHYSICAL EXAMINATION: General appearance in no acute distress. HEENT: Normocephalic and nontraumatic. Eyes, nose, ears, and throat are unremarkable. Hearing decrease. Neck is supple. No lymphadenopathy. No Crepitus. Cardiovascular: S1, S2, regular rate and rhythm. Pulmonary: Clear to auscultation bilaterally. Abdomen: Bowel sounds are positive. Abdomen is soft, nontender, and nondistended. Extremities: No rash, lesions, or edema. No restriction of range of motion NEUROLOGICAL EXAMINATION: Drowsiness. Oriented to place and person. PERRL. EOMI. CN: no focal findings. Muscle tone: within normal. Muscle strength: 4 DTR: 2- Plantar reflex: Flexo/Neutral response bilaterally Gait: not examined in bed. Sensory exam: no abnormal findings. No cerebellar signs elicited. F-T-N test fine. Objective Objective Vital Signs Date Time Temp Pulse Resp B/P Pulse Ox O2 Delivery O2 Flow Rate FiO2 07/25/16 11:46 98 Room Air 07/25/16 11:00 98.0 68 22 166/73 98.0 Intake and Output 07/25/16 06:59 Intake Total 260 ml Output Total 150 ml Balance 110 ml Intake Oral 260 ml Output Urine Total 150 ml # Voids 10 # Bowel Movements 1 Vitals Signs Vitals VS - Last 72 Hours, by Label Date Time Temp Pulse Resp B/P Pulse Ox O2 Delivery O2 Flow Rate FiO2 07/25/16 11:46 98 Room Air 07/25/16 11:00 98.0 68 22 166/73 94 Room Air 98.0 07/25/16 09:15 62 148/64 07/25/16 07:50 Room Air 07/25/16 07:24 98 Room Air 07/25/16 07:00 97.3 62 22 148/64 96 Room Air 97.3 07/25/16 02:52 98.4 71 16 147/78 96 Room Air 98.4 07/24/16 23:12 98.7 70 16 111/63 96 Room Air 98.7 07/24/16 21:20 98 Room Air 07/24/16 20:10 Room Air 07/24/16 19:32 98.6 69 16 117/61 96 Room Air 98.6 07/24/16 15:00 98.1 69 20 145/83 95 Room Air 98.1 07/24/16 14:18 95 Room Air 07/24/16 11:00 98.5 63 20 147/71 97 Room Air 98.5 07/24/16 10:57 95 Room Air 07/24/16 10:38 68 141/71 07/24/16 09:02 63 176/76 07/24/16 08:00 Room Air 07/24/16 07:00 98.1 63 20 176/76 94 Room Air 98.1 Laboratory Laboratory Laboratory Tests Test 07/25/16 06:30 White Blood Count 9.3x10^3/uL (4.0-11.0) Red Blood Count 3.86x10^6/uL (3.50-5.40) Hemoglobin 12.8g/dL (12.0-15.5) Hematocrit 37.4% (36.0-47.0) Mean Corpuscular Volume 97fL (79-100) Mean Corpuscular Hemoglobin 33pg (25-35) Mean Corpuscular Hemoglobin Concent 34g/dL (31-37) Red Cell Distribution Width 15.2% (11.5-14.5) Platelet Count 153x10^3/uL (140-400) Neutrophils (%) (Auto) 59% (31-73) Lymphocytes (%) (Auto) 29% (24-48) Monocytes (%) (Auto) 10% (0-9) Eosinophils (%) (Auto) 2% (0-3) Basophils (%) (Auto) 1% (0-3) Neutrophils # (Auto) 5.5x10^3uL (1.8-7.7) Lymphocytes # (Auto) 2.7x10^3/uL (1.0-4.8) Monocytes # (Auto) 0.9x10^3/uL (0.0-1.1) Eosinophils # (Auto) 0.2x10^3/uL (0.0-0.7) Basophils # (Auto) 0.1x10^3/uL (0.0-0.2) Sodium Level 147mmol/L (136-145) Potassium Level 3.0mmol/L (3.5-5.1) Chloride Level 108mmol/L (98-107) Carbon Dioxide Level 30mmol/L (21-32) Anion Gap 9 (6-14) Blood Urea Nitrogen 8mg/dL (7-20) Creatinine 0.7mg/dL (0.6-1.0) Estimated GFR (Cockcroft-Gault) 83.2 Glucose Level 95mg/dL (70-99) Calcium Level 8.6mg/dL (8.5-10.1) Microbiology 07/17/16 Blood Culture - Final, Complete NO GROWTH AFTER 5 DAYS Medication Medications Current Medications Lisinopril (Prinivil) 40 mg DAILY PO Last administered on 07/25/16 09:15; Start 07/25/16 at 09:00 Potassium Chloride (Klor-Con) 40 meq 1X ONCE PO Last administered on 10:25; Start 07/25/16 at 09:30; Stop 07/25/16 at 09:31; Status DC Potassium Chloride (Klor-Con) 40 meq 1X ONCE PO Last administered on 12:51; Start 07/25/16 at 12:00; Stop 07/25/16 at 12:01; Status DC Comment Review of Relevant I have reviewed the following items wesly (where applicable) has been applied. CHILO SERRANO MD Jul 25, 2016 15:15
[2016-07-25 19:00] VITALS: BP 138/61
[2016-07-25] MEDS: FAMOTIDINE 20 MG TABLET. PO SCH ×3 (21:00→22:03)
[2016-07-25 23:40] VITALS: BP 169/83
[2016-07-26 03:22] VITALS: BP 166/66
[2016-07-26] MEDS: LEVOTHYROXINE 50 MCG TABLET PO SCH (06:21)
[2016-07-26 07:00] VITALS: BP 150/66
[2016-07-26] MEDS: IPRATRPIUM/ALBUTEROL 0.5/2.5MG 3 ML NEBU. NEB SCH ×4 (07:23→18:04)
[2016-07-26] MEDS: LEVETIRACETAM 500 MG TABLET. PO SCH ×2 (08:44→20:31)
[2016-07-26] MEDS: SIMVASTATIN 20 MG TABLET PO SCH (08:44)
[2016-07-26] MEDS: NICOTINE 21MG PATCH. TD SCH (08:45)
[2016-07-26] MEDS: LISINOPRIL 40 MG TABLET. PO SCH (08:45)
[2016-07-26 11:00] VITALS: BP 137/76
--- NOTE | 2016-07-26 14:35 | PDOC ---
PROGRESS NOTES Assessment Assessment Traumatic SAH Fall Syncope. COPD HTN HLD Dementia features. No evidence of AVM or aneurysm on CTA. RECOMMENDATIONS/PLAN: Continue medical treatment. BP control Continue Zocor 20 mg HS. Avoid anticoagulant and antiplatelet agents at the present time. OT/PT. Fall prevention. SUBJECTIVE: No headache. OBJECTIVE: No new neurological deficits. PAST MEDICAL AND SURGICAL HISTORY: Please see H&P ALLERGY: Reviewed. MEDICATIONS: Refer to MAR REVIEW OF SYSTEMS: Constitutional: No malnutrition, weight loss, cachexia. Head: Head injury from fall. Skin: No edema, or rash. Ear: No infection. Eyes: No vision loss, or diplopia. Nose: No bleeding or purulent discharges. Hearing: No hearing decrease. Neck: No injury. Breast: No history of cancer, masses, or discharges. Cardiac: HTN, HLD Pulmonary: COPD. GI: No GI Ulcer, GI bleeding Urinary/genital: UTI. Endocrine: No cousin face, craniofacial dysmorphism, polydactyly. Skeletomuscular: No muscular atrophy, deformity. Neurological: see HP. Psychiatric: Denies drug use/abuse. Otherwise, not -qcpjh review of systems. PHYSICAL EXAMINATION: General appearance in no acute distress. HEENT: Normocephalic and nontraumatic. Eyes, nose, ears, and throat are unremarkable. Hearing decrease. Neck is supple. No lymphadenopathy. No Crepitus. Cardiovascular: S1, S2, regular rate and rhythm. Pulmonary: Clear to auscultation bilaterally. Abdomen: Bowel sounds are positive. Abdomen is soft, nontender, and nondistended. Extremities: No rash, lesions, or edema. No restriction of range of motion NEUROLOGICAL EXAMINATION: Awake. Oriented to place and person, not accurate to time. PERRL. EOMI. CN: no focal findings. Muscle tone: within normal. Muscle strength: 4 DTR: 2- Plantar reflex: Flexor response bilaterally Gait: not examined in bed. Sensory exam: no abnormal findings. No cerebellar signs elicited. F-T-N test fine. Objective Objective Vital Signs Date Time Temp Pulse Resp B/P Pulse Ox O2 Delivery O2 Flow Rate FiO2 07/26/16 11:10 97 Room Air 07/26/16 11:00 79 18 137/76 07/26/16 07:00 97.9 97.9 Intake and Output 07/26/16 06:59 Output Total 600 ml Balance -600 ml Output Urine Total 600 ml # Voids 7 # Bowel Movements 1 Vitals Signs Vitals VS - Last 72 Hours, by Label Date Time Temp Pulse Resp B/P Pulse Ox O2 Delivery O2 Flow Rate FiO2 07/26/16 11:10 97 Room Air 07/26/16 11:00 79 18 137/76 95 Room Air 07/26/16 08:45 74 150/66 07/26/16 07:45 Room Air 07/26/16 07:30 99 Room Air 07/26/16 07:00 97.9 74 20 150/66 93 Room Air 97.9 07/26/16 03:22 97.7 75 18 166/66 96 Room Air 97.7 07/25/16 23:40 98.3 72 18 169/83 97 Room Air 98.3 07/25/16 21:06 95 Room Air 07/25/16 19:55 Room Air 07/25/16 19:00 98.4 75 18 138/61 95 Room Air 98.4 07/25/16 16:00 Room Air 07/25/16 15:00 98.2 69 22 148/79 95 Room Air 98.2 07/25/16 11:46 98 Room Air 07/25/16 11:00 98.0 68 22 166/73 94 Room Air 98.0 07/25/16 09:15 62 148/64 07/25/16 07:50 Room Air 07/25/16 07:24 98 Room Air 07/25/16 07:00 97.3 62 22 148/64 96 Room Air 97.3 Laboratory Laboratory Microbiology 07/17/16 Blood Culture - Final, Complete NO GROWTH AFTER 5 DAYS Comment Review of Relevant I have reviewed the following items wesly (where applicable) has been applied. CHILO SERRANO MD Jul 26, 2016 14:35
[2016-07-26 15:00] VITALS: BP 139/79
--- NOTE | 2016-07-26 17:10 | PDOC ---
PROGRESS NOTES Chief Complaint Chief Complaint Traumatic subarachnoid hemorrhage ASSESSMENT AND PLAN: 1. SAH: stable by serial imaging. appreciate Neurology service input. avoid anti-plt agents, blood thinners. can be restarted about 2 weeks post event. on prophylactic Keppra (?duration) 2. HTN: well controlled on clonidine and lisinopril 3. Hypothyroidism: significantly elevated TSH at admit. synthroid increased to 50 4. Hypokalemia: replete orally 5. Hypernatremia: encourage PO fluid intake, monitor 6. Leukocytosis: reactive s/s bleed. resolved 7. CAD: cont home meds save for Asp/plavix 8. Dysphagia: thickened liquids 8. Hx syncope: no events in hospital 9. ?Dementia at baseline 10. Prophylaxis: H2B 11: Dispo: [facility] in [facility] (although pt reluctant; she does not want to go home, though). d/w pt and sister on 2 occasions today, totalling 45 minutes. She is no longer hospital level of care, and would greatly benefit from rehab. History of Present Illness History of Present Illness no new issues. agreeable to go to SNF Vitals Vitals Vital Signs Date Time Temp Pulse Resp B/P Pulse Ox O2 Delivery O2 Flow Rate FiO2 07/26/16 15:16 97 Room Air 07/26/16 15:00 98.5 79 18 139/79 98.5 Physical Exam Physical Exam more awake on 07/19, answer some questions, follow commands by squeezing hands knows in [place], but said it is 04/2015 General: Alert, Cooperative, No acute distress Heart: Regular rate Lungs: Clear Abdomen: Normal bowel sounds, Soft, No tenderness Extremities: No clubbing, No cyanosis Skin: No rashes Nutrition Consultation Dietary Evaluation: Recommendations by RD: PPN/TPN Comments: continue ppn for short term nutrition at this time Expected Outcomes/Goals: diet advancement - met new goal: to meet > 50% est nutr needs via po intake Interpretation of weight loss: >20% in 1 year Malnutrition Findings: Body Fat Depletion (Non Severe: Mild Depletion Weight Status: Appropriate PAU LAL MD Jul 26, 2016 17:10
[2016-07-26 19:00] VITALS: BP 122/68
[2016-07-26 23:00] VITALS: BP 165/67
[2016-07-27] MEDS: LEVOTHYROXINE 50 MCG TABLET PO SCH (06:35)
[2016-07-27 07:00] VITALS: BP 147/74
[2016-07-27] MEDS: IPRATRPIUM/ALBUTEROL 0.5/2.5MG 3 ML NEBU. NEB SCH (07:54)
[2016-07-27] MEDS: NICOTINE 21MG PATCH. TD SCH (09:00)
[2016-07-27] MEDS: SIMVASTATIN 20 MG TABLET PO SCH (09:04)
[2016-07-27] MEDS: LEVETIRACETAM 500 MG TABLET. PO SCH (09:04)
[2016-07-27 09:05] VITALS: BP 147/74
[2016-07-27] MEDS: LISINOPRIL 40 MG TABLET. PO SCH (09:05)
--- NOTE | 2016-07-27 09:20 | PDOC3 ---
Discharge Summary Visit Information Date of Admission: Jul 17, 2016 Date of Discharge: Jul 27, 2016 Admitting Diagnosis: head injury, concussion Final Diagnosis 1. SAH: stable by serial imaging. appreciate Neurology service input. avoid anti-plt agents, blood thinners. can be restarted about 2 weeks post event. on prophylactic Keppra (?duration) 2. HTN: well controlled on clonidine and lisinopril 3. Hypothyroidism: significantly elevated TSH at admit. synthroid increased to 50 4. Hypokalemia: replete orally 5. Hypernatremia: encourage PO fluid intake, monitor 6. Leukocytosis: reactive s/s bleed. resolved 7. CAD: cont home meds save for Asp/plavix 8. Dysphagia: thickened liquids 8. Hx syncope: no events in hospital 9. ?Dementia at baseline 10. Prophylaxis: H2B 11: Dispo: [facility] in [facility] (although pt reluctant; she does not want to go home, though). d/w pt and sister on 2 occasions today, totalling 45 minutes. She is no longer hospital level of care, and would greatly benefit from rehab. Problems Medical Problems: (1) Altered mental status Status: Acute (2) Closed head injury Status: Acute (3) Dehydration Status: Acute (4) Subarachnoid hemorrhage Status: Acute Brief Hospital Course Allergies Allergies Coded Allergies Type Severity Reaction Last Updated Verified Penicillins Allergy Intermediate 10/23/15 Yes amoxicillin Allergy Intermediate 10/23/15 Yes Vital Signs Vital Signs Date Time Temp Pulse Resp B/P Pulse Ox O2 Delivery O2 Flow Rate FiO2 07/27/16 09:05 82 147/74 07/27/16 07:51 93 Room Air 07/27/16 07:00 98.1 28 98.1 Brief Hospital Course Ms. Kim is a 66 old woman admit w. altered mental status. She fell and struck her head. then vomitined She has a history of vasovagal syncope. CT scan of the head was performed revealing some subarachnoid hemorrhage, admit to intensive Care Unit. noted cognitive decline before this Discharge Information Condition at Discharge: Improved Follow Up: Weeks Disposition/Orders: D/C to Another Facility Scheduled Aspirin (Aspir 81) 1 TAB PO HS (Reported) Clopidogrel Bisulfate (Clopidogrel) 1 TAB PO DAILY (Reported) Levetiracetam (Levetiracetam) 500 MG PO BID Levothyroxine Sodium (Synthroid) 50 MCG PO DAILY07 Lisinopril (Lisinopril) 1 TAB PO DAILY (Reported) Simvastatin (Simvastatin) 20 MG PO DAILY (Reported) Trazodone Hcl (Trazodone Hcl) 1 TAB PO QHS (Reported) Discontinued Medications Carvedilol (Carvedilol) 25 MG PO BID (Reported) Diazepam (Diazepam) 2 MG PO PRN TID PRN PRN ANXIETY / AGITATION (Reported) Isosorbide Mononitrate (Isosorbide Mononitrate Er) 1 TAB PO DAILY (Reported) Levothyroxine Sodium (Levothyroxine Sodium) 1 TAB PO DAILY (Reported) Patient Instructions Patient Instructions to resort on parallel SNU time > 30 min TODD BLAIR MD Jul 27, 2016 09:20
== END 2016-07-27 11:36 | DRG 85 ==
LOC: ER 11:08 → 1 WEST ICU 13:49 → 4 NORTH 07-19 18:53
PROVIDERS: ADMIT Internal Medicine Hematology & Oncology; ATTEND Internal Medicine Hematology & Oncology
DX: S06.6X0A Traumatic subarachnoid hemorrhage without loss of consciousness, initial encounter (principal); G93.40 Encephalopathy, unspecified; N17.9 Acute kidney failure, unspecified; E87.0 Hyperosmolality and hypernatremia; D72.829 Elevated white blood cell count, unspecified; E03.9 Hypothyroidism, unspecified; E78.00 Pure hypercholesterolemia, unspecified; E78.5 Hyperlipidemia, unspecified; E83.42 Hypomagnesemia; E87.6 Hypokalemia; F17.210 Nicotine dependence, cigarettes, uncomplicated; I10 Essential (primary) hypertension; I25.10 Atherosclerotic heart disease of native coronary artery without angina pectoris; J44.9 Chronic obstructive pulmonary disease, unspecified; R13.10 Dysphagia, unspecified; W19.XXXA Unspecified fall, initial encounter; Y93.89 Activity, other specified; Y92.89 Other specified places as the place of occurrence of the external cause; Y99.8 Other external cause status; Z79.82 Long term (current) use of aspirin; Z79.899 Other long term (current) drug therapy; Z82.49 Family history of ischemic heart disease and other diseases of the circulatory system; Z83.3 Family history of diabetes mellitus; Z87.01 Personal history of pneumonia (recurrent); Z95.5 Presence of coronary angioplasty implant and graft; Z99.81 Dependence on supplemental oxygen; Z88.0 Allergy status to penicillin; Z88.1 Allergy status to other antibiotic agents
CPT/HCPCS: 12001; 36415; 70450; 70496; 70544; 71010; 72125; 73030; 73060; 73080; 74022; 74230; 80048; 80053; 81001; 82140; 82274; 82607; 83605; 83735; 83880; 84132; 84439; 84443; 84484; 85027; 85610; 85730; 87040; 87641; 87804; 90471; 90714; 93005; 94250; 94640; 94760; 96361; 96365; 96375; 99406; G0481; J0360; J1953; J1956; J2185; J3480; J3490; J7030; J7060; J7620; Q9967; 92526; 92610; 92611; 97116; 97530; 97535; 99285-25

== ENCOUNTER 2016-10-02 12:10 | Inpatient (IN) | payer MEDICARE ==
[~2016-10-02] VITALS: Ht 160 cm; Wt 52.2 kg
[~2016-10-02 12:10] MED LIST changes: +LEVE500T6 PO; +LEVO50TA PO
--- NOTE | 2016-10-02 12:21 | PHYS DOC ---
Past Medical History Past Medical History: Anxiety, Bronchitis, CAD, Constipation, COPD, High Cholesterol, Hypertension, Pneumonia Past Surgical History: Other Additional Past Surgical Histo: cardiac stents Alcohol Use: None Drug Use: None Adult General Chief Complaint Chief Complaint: ALTERED MENTAL STATUS HPI HPI Patient is a 66 year old F who presents with altered mental status and confusion. Patient states she accidentally took too much of her medication this morning and became confused therefore called EMS. Patient doesn't know why she is taking Bactrim. Patient denies any chest pain or shortness of breath. Patient denies any nausea/vomiting/diarrhea. Patient denies abdominal pain or dysuria. Patient denies any fevers. Patient does know what hospital she is at and what day of the month it is however does not know why she is taking Bactrim. Patient has no other complaints. Pertinent exam findings: Patient is alert and oriented 3 Heart is regular rate and rhythm without any murmurs Lungs are clear to auscultation bilaterally without crackles wheezes or rales ED course: Patient was seen and evaluated emergency room CBC, CMP, UA, chest x-ray, EKG, CT scan of the head without contrast was ordered 1225: EKG shows normal sinus rhythm rate 69 no STEMI 1330: Results were discussed with the patient who is alert and oriented 3 however cannot remember if she had fallen previously and had a previous had bleeding. Patient is very confused when asking about her daily routine. 1335: Discussed CC/HP/PMH with Dr. Salguero and recommends admit [] Pertinent results: CXR: NAD CT Abd and pelvis: IMPRESSION: 1. New small complex extra-axial fluid collection in the left frontal region probably representing a subacute/chronic subdural hematoma. 2. No acute intracranial hemorrhage is identified. MDM: After reviewing the chart, CC/HPI/PMH, physical exam, [lab results], [ radiological results], the patient has an subacute subdural hematoma which is most likely contributing to her altered mental status and due the fact she lives by herself we will admit her to the hospital for further evaluation and management. Review of Systems Review of Systems GEN: Denies fevers, chills, sweats HEENT: Denies blurred vision, sore throat CV: Denies chest pain RESP: Denies shortness of air, cough GI: Denies n/v/d NEURO: Confusion MSK: Denies weakness, joint pain/swelling Allergies Allergies Allergies Coded Allergies Type Severity Reaction Last Updated Verified Penicillins Allergy Intermediate 10/02/16 Yes amoxicillin Allergy Intermediate 10/02/16 Yes codeine Allergy Unknown 10/02/16 Yes doxycycline Allergy Unknown 10/02/16 Yes Physical Exam Physical Exam GEN.: No apparent distress. Alert and oriented. HEENT: Head is normocephalic, atraumatic NECK: Supple. LUNGS: CTAB. HEART: RRR, S1, S2 present. Peripheral pulses intact ABDOMEN: Soft, nontender. Positive bowel sounds. EXTREMITIES: Without any cyanosis. NEUROLOGIC: Normal speech, normal tone PSYCHIATRIC: Normal affect, normal mood. SKIN: No ulcerations Current Patient Data Vital Signs Vital Signs Date Time Temp Pulse Resp B/P (MAP) Pulse Ox O2 Delivery O2 Flow Rate FiO2 10/02/16 12:10 98.4 71 18 129/77 (94) 94 Room Air 98.4 Lab Values Laboratory Tests Test 10/02/16 12:20 10/02/16 13:10 White Blood Count 8.7 x10^3/uL (4.0-11.0) Red Blood Count 3.87 x10^6/uL (3.50-5.40) Hemoglobin 13.1 g/dL (12.0-15.5) Hematocrit 37.4 % (36.0-47.0) Mean Corpuscular Volume 97 fL (79-100) Mean Corpuscular Hemoglobin 34 pg (25-35) Mean Corpuscular Hemoglobin Concent 35 g/dL (31-37) Red Cell Distribution Width 13.2 % (11.5-14.5) Platelet Count 213 x10^3/uL (140-400) Neutrophils (%) (Auto) 62 % (31-73) Lymphocytes (%) (Auto) 31 % (24-48) Monocytes (%) (Auto) 6 % (0-9) Eosinophils (%) (Auto) 1 % (0-3) Basophils (%) (Auto) 1 % (0-3) Neutrophils # (Auto) 5.4 x10^3uL (1.8-7.7) Lymphocytes # (Auto) 2.7 x10^3/uL (1.0-4.8) Monocytes # (Auto) 0.5 x10^3/uL (0.0-1.1) Eosinophils # (Auto) 0.1 x10^3/uL (0.0-0.7) Basophils # (Auto) 0.1 x10^3/uL (0.0-0.2) Urine Collection Type Void Urine Color Yellow Urine Clarity Clear Urine pH 5.5 Urine Specific [place] 1.025 Urine Protein Negative mg/dL (NEG-TRACE) Urine Glucose (UA) Negative mg/dL (NEG) Urine Ketones (Stick) 15 mg/dL (NEG) Urine Blood Negative (NEG) Urine Nitrite Negative (NEG) Urine Bilirubin Negative (NEG) Urine Urobilinogen Dipstick 0.2 mg/dL (0.2 mg/dL) Urine Leukocyte Esterase Small (NEG) Urine RBC Occ /HPF (0-2) Urine WBC 11-20 /HPF (0-4) Urine Squamous Epithelial Cells Many /LPF Urine Bacteria Moderate /HPF (0-FEW) Urine Mucus Marked /LPF Laboratory Tests 10/02/16 12:20 EKG EKG 1225: EKG shows normal sinus rhythm rate 69 no STEMI[] Radiology/Procedures Radiology/Procedures CT Abd and pelvis IMPRESSION: 1. New small complex extra-axial fluid collection in the left frontal region probably representing a subacute/chronic subdural hematoma. 2. No acute intracranial hemorrhage is identified.[] Course & Med Decision Making Course & Med Decision Making Pertinent Labs and Imaging studies reviewed. (See chart for details) [] Dragon Disclaimer Dragon Disclaimer This electronic medical record was generated, in whole or in part, using a voice recognition dictation system. Departure Departure Impression: Primary Impression: Subacute subdural hematoma Additional Impression: Altered mental status Disposition: 09 ADMITTED INPATIENT Admitting Physician: Teresa Salguero Condition: STABLE Referrals: RYLEY SAUNDERS MD (PCP) Problem Qualifiers Additional Impression: Altered mental status Altered mental status type: unspecified Qualified Codes: R41.82 - Altered mental status, unspecified MIKE NAVA DO Oct 02, 2016 12:21
--- NOTE | 2016-10-02 12:54 | RAD ---
Portable chest, 10/02/2016: History: Confusion, altered mental status Comparison is made to a study from 07/20/2016. The heart size and pulmonary vascularity are normal. There is calcific plaquing of the aorta. No pulmonary infiltrate is seen. There is no evidence of pleural fluid. The bony structures are demineralized. IMPRESSION: No acute cardiopulmonary abnormality is detected.
[2016-10-02 13:12] LABS: BASO # 0.1 x10^3/uL (0.0-0.2); BASO % 1 % (0-3); EOS % 1 % (0-3); HEMATOCRIT 37.4 % (36.0-47.0); HEMOGLOBIN 13.1 g/dL (12.0-15.5); LYMPH # 2.7 x10^3/uL (1.0-4.8); LYMPH % 31 % (24-48); MEAN CORPUSCULAR HEMOGLOBIN 34 pg (25-35); MEAN CORPUSCULAR HGB CONC 35 g/dL (31-37); MEAN CORPUSCULAR VOLUME 97 fL (79-100); MONO % 6 % (0-9); NEUT % 62 % (31-73); PLATELET COUNT 213 x10^3/uL (140-400); RED BLOOD COUNT 3.87 x10^6/uL (3.50-5.40); RED CELL DISTRIBUTION WIDTH 13.2 % (11.5-14.5); WHITE BLOOD COUNT 8.7 x10^3/uL (4.0-11.0)
--- NOTE | 2016-10-02 13:16 | RAD ---
CT of the head without contrast, 10/02/2016: History: Altered mental status, previous subdural hematoma Comparison is made to a study from 07/20/2016. There is a new abnormal extra-axial process centered in the left frontal region. It is predominantly low density with streaky internal areas of medium density. It measures approximately 14 mm in greatest thickness. The appearance suggests a subdural fluid collection, most likely an old hematoma. There is mild associated flattening of the left frontal lobe inferiorly. There is a slight associated [id number] shift of the midline structures. The ventricles are not effaced. The lateral and third ventricles are actually larger than on the 07/20/2016 exam. Probable tiny areas of subarachnoid or superficial petechial hemorrhage seen in the left lateral frontal region on the previous study have resolved. There is no current evidence of intra-axial hemorrhage. The cerebellum and brainstem are unremarkable. IMPRESSION: 1. New small complex extra-axial fluid collection in the left frontal region probably representing a subacute/chronic subdural hematoma. 2. No acute intracranial hemorrhage is identified. PQRS Compliance Statement: One or more of the following individualized dose reduction techniques were utilized for this examination: 1. Automated exposure control 2. Adjustment of the mA and/or kV according to patient size 3. Use of iterative reconstruction technique
[2016-10-02 13:22] LABS: BILIRUBIN,URINE NEGATIVE (NEG); GLUCOSE,URINE NEGATIVE (NEG); NITRITE,URINE NEGATIVE (NEG); PH,URINE 5.5; PROTEIN,URINE NEGATIVE (NEG-TRACE); UROBILINOGEN,URINE 0.2 mg/dL (0.2 mg/dL)
[2016-10-02 13:27] LABS: SQUAMOUS EPITHELIAL CELL,UR MANY /LPF
[2016-10-02 13:28] LABS: BACTERIA,URINE MODERATE /HPF (0-FEW)
[2016-10-02 13:29] LABS: RBC,URINE OCC /HPF (0-2)
[2016-10-02 13:41] LABS: CALCIUM 10.2 mg/dL (8.5-10.1); CREATININE 0.8 mg/dL (0.6-1.0); GFR 71.3; POTASSIUM 3.6 mmol/L (3.5-5.1)
[2016-10-02] MEDS ORDERED: MORPHINE SULFATE 4 MG/ML DISP.SYRIN. IV PRN (13:45)
[2016-10-02] MEDS ORDERED: ACETAMINOPHEN 325 MG TABLET. PO PRN ×2 (13:45→16:45)
[2016-10-02] MEDS ORDERED: ONDANSETRON PF 4 MG/2 ML VIAL. IV PRN ×2 (13:45→16:45)
[2016-10-02 13:47] LABS: ALBUMIN 3.5 g/dL (3.4-5.0); ALBUMIN/GLOBULIN RATIO 1.3 (1.0-1.7); TOTAL BILIRUBIN 0.5 mg/dL (0.2-1.0); TOTAL PROTEIN 6.3 g/dL (6.4-8.2)
--- NOTE | 2016-10-02 14:20 | ACF ---
Admission Forms Criteria TRAUMATIC BRAIN INJURY, NONSURGICAL TREATMENT Clinical Indications for Admission to Inpatient Care (Place 'X' for any and all applicable criteria): Admission is indicated for head injury and ANY ONE of the following(1)(2)(3)(4)( 5)(6)(7): [ ]I. Postresuscitation or presenting Colliers coma scale (GCS) score of less than 13 [ ]II. New focal signs on neurologic examination [X]III. Persistently diminished level of consciousness (eg, lethargy, disorientation) [ ]IV. Penetrating wounds [ ]V. Evidence of increased ICP (eg, papilledema, persistent vomiting) [ ]. CSF leak(7)(8) [ ]VII. Significant extracranial injuries [X]VIII. Intracranial pathology on CT scan(6) [X]IX. Inpatient admission required rather than observation care (Use Traumatic Brain Injury, Nonsurgical Treatment: Observation Care Criteria as appropriate) because of ANY ONE of the following: [ ]a) Intracranial infection identified(8) [ ]b) Cerebral vasospasm identified or suspected [ ]c) Recurrent seizures(9) [ ]d) Surgical intervention or complex wound care required(7)(10) [ ]e) Hemodynamic instability [ ]f) Hypertension requiring inpatient treatment [ ]g) Continuous IV infusion of anticoagulant, platelet inhibitor, vasoactive, or antiarrhythmic Medication(11)(12) [X]h) Cerebral bleeding, hydrocephalus, or vasospasm monitoring (13) [ ]i ) Other condition, treatment or monitoring requiring inpatient admission Extended stay beyond goal length of stay may be needed for(23)(24) [ ]a) Severe injury [ ]b) Ventilatory failure [ ]c) Intracranial infection [ ]d) Increased ICP [ ]e) Cerebral vasospasm [ ]f) New-onset seizures [ ]g) Severe neurologic deficits [ ]h) Surgical intervention The original [employer] content created by [employer] has been revised. The portions of the content which have been revised are identified through the use of italic text or in bold, and [facility] has neither reviewed nor approved the modified material. All other unmodified content is copyright [employer]. Please see references footnoted in the original [facility] edition 2016 Admission Criteria Met?: Yes IVY KULKARNI Oct 02, 2016 14:20
--- NOTE | 2016-10-02 15:15 | PDOC2 ---
CONSULT Date of Consult Date of Consult DATE: 10/02/16 TIME: 15:06 Reason for Consult Reason for Consult: SDH History of Present Illness Reason for Visit: 66F with recent SAH couple months ago. Presented to ED after she was concerned that she didn't take her outpatient medications correctly. Denies recent falls. Reports fall prior to last admission. Denies headache, nausea, vomiting, visual changes, or other acute complaints. States she feels "normal". Imaging in ED showed left frontal subacute/chronic SDH for which NS is consulted. Past Medical History Cardiovascular: HTN, Syncope, Hyperlipidemia Pulmonary: COPD Psych: Anxiety, Depression Renal/: Other Endocrine: Hypothyroidism Past Surgical History Past Surgical History: Cataract Removal, Tubal Ligation, Other Family History Family History: Diabetes Social History ALCOHOL: none Drugs: None Current Problem List Problem List Problems Medical Problems: (1) Altered mental status Status: Acute (2) Subacute subdural hematoma Status: Acute Current Medications Current Medications Current Medications Ondansetron HCl (Zofran) 4 mg PRN Q8HRS PRN IV NAUSEA/VOMITING; Start 10/02/16 at 13:45; Stop 10/03/16 at 13:44 Morphine Sulfate 4 mg PRN Q2HR PRN IV PAIN; Start 10/02/16 at 13:45; Stop at 13:44 Acetaminophen (Tylenol) 650 mg PRN Q4HRS PRN PO FEVER; Start 10/02/16 at 13:45; Stop 10/03/16 at 13:44 Active Scripts Active Levetiracetam 500 Mg Tablet 500 Mg PO BID 30 Days Synthroid (Levothyroxine Sodium) 50 Mcg Tablet 50 Mcg PO DAILY07 Reported Simvastatin 20 Mg Tablet 20 Mg PO DAILY Aspir 81 (Aspirin) 81 Mg Tablet.dr 1 Tab PO HS Lisinopril 20 Mg Tablet 1 Tab PO DAILY Clopidogrel (Clopidogrel Bisulfate) 75 Mg Tablet 1 Tab PO DAILY Trazodone Hcl 50 Mg Tablet 1 Tab PO QHS Allergies Allergies: Coded Allergies: Penicillins (Verified Allergy, Intermediate, 10/02/16) amoxicillin (Verified Allergy, Intermediate, 10/02/16) codeine (Verified Allergy, Unknown, 10/02/16) "TYLENOL-CODEINE #4" doxycycline (Verified Allergy, Unknown, 10/02/16) Physical Exam General: Alert, Cooperative, No acute distress, Other (mildly confused with history but able to comprehend and communicate well) HEENT: Atraumatic, PERRLA, EOMI Lungs: Normal air movement, Other (nonlabored) Heart: Regular rate Abdomen: Soft Extremities: No cyanosis, No edema Skin: No rashes, No breakdown Neuro: Normal speech, Strength at 5/5 X4 ext, Normal tone, Sensation intact, Cranial nerves 3-12 NL, Reflexes 2+ MUSCULOSKELETAL: No joint tenderness, No swelling, No muscular tenderness noted , Other (dressing on left index finger related to hemorrhage from ?blood draw? per patient) Vitals VITALS Vital Signs Date Time Temp Pulse Resp B/P (MAP) Pulse Ox O2 Delivery O2 Flow Rate FiO2 10/02/16 14:13 75 123/75 (91) 92 Room Air 10/02/16 12:10 98.4 18 98.4 Labs Labs Laboratory Tests Test 10/02/16 12:20 10/02/16 13:10 10/02/16 13:30 White Blood Count 8.7 x10^3/uL (4.0-11.0) Red Blood Count 3.87 x10^6/uL (3.50-5.40) Hemoglobin 13.1 g/dL (12.0-15.5) Hematocrit 37.4 % (36.0-47.0) Mean Corpuscular Volume 97 fL (79-100) Mean Corpuscular Hemoglobin 34 pg (25-35) Mean Corpuscular Hemoglobin Concent 35 g/dL (31-37) Red Cell Distribution Width 13.2 % (11.5-14.5) Platelet Count 213 x10^3/uL (140-400) Neutrophils (%) (Auto) 62 % (31-73) Lymphocytes (%) (Auto) 31 % (24-48) Monocytes (%) (Auto) 6 % (0-9) Eosinophils (%) (Auto) 1 % (0-3) Basophils (%) (Auto) 1 % (0-3) Neutrophils # (Auto) 5.4 x10^3uL (1.8-7.7) Lymphocytes # (Auto) 2.7 x10^3/uL (1.0-4.8) Monocytes # (Auto) 0.5 x10^3/uL (0.0-1.1) Eosinophils # (Auto) 0.1 x10^3/uL (0.0-0.7) Basophils # (Auto) 0.1 x10^3/uL (0.0-0.2) Urine Collection Type Void Urine Color Yellow Urine Clarity Clear Urine pH 5.5 Urine Specific [place] 1.025 Urine Protein Negative mg/dL (NEG-TRACE) Urine Glucose (UA) Negative mg/dL (NEG) Urine Ketones (Stick) 15 mg/dL (NEG) Urine Blood Negative (NEG) Urine Nitrite Negative (NEG) Urine Bilirubin Negative (NEG) Urine Urobilinogen Dipstick 0.2 mg/dL (0.2 mg/dL) Urine Leukocyte Esterase Small (NEG) Urine RBC Occ /HPF (0-2) Urine WBC 11-20 /HPF (0-4) Urine Squamous Epithelial Cells Many /LPF Urine Bacteria Moderate /HPF (0-FEW) Urine Mucus Marked /LPF Sodium Level 146 mmol/L (136-145) Potassium Level 3.6 mmol/L (3.5-5.1) Chloride Level 109 mmol/L (98-107) Carbon Dioxide Level 29 mmol/L (21-32) Anion Gap 8 (6-14) Blood Urea Nitrogen 12 mg/dL (7-20) Creatinine 0.8 mg/dL (0.6-1.0) Estimated GFR (Cockcroft-Gault) 71.3 BUN/Creatinine Ratio 15 (6-20) Glucose Level 103 mg/dL (70-99) Calcium Level 10.2 mg/dL (8.5-10.1) Total Bilirubin 0.5 mg/dL (0.2-1.0) Aspartate Amino Transf (AST/SGOT) 12 U/L (15-37) Alanine Aminotransferase (ALT/SGPT) 16 U/L (14-59) Alkaline Phosphatase 74 U/L (46-116) Total Protein 6.3 g/dL (6.4-8.2) Albumin 3.5 g/dL (3.4-5.0) Albumin/Globulin Ratio 1.3 (1.0-1.7) Laboratory Tests Test 10/02/16 12:20 10/02/16 13:10 10/02/16 13:30 White Blood Count 8.7 x10^3/uL (4.0-11.0) Red Blood Count 3.87 x10^6/uL (3.50-5.40) Hemoglobin 13.1 g/dL (12.0-15.5) Hematocrit 37.4 % (36.0-47.0) Mean Corpuscular Volume 97 fL (79-100) Mean Corpuscular Hemoglobin 34 pg (25-35) Mean Corpuscular Hemoglobin Concent 35 g/dL (31-37) Red Cell Distribution Width 13.2 % (11.5-14.5) Platelet Count 213 x10^3/uL (140-400) Neutrophils (%) (Auto) 62 % (31-73) Lymphocytes (%) (Auto) 31 % (24-48) Monocytes (%) (Auto) 6 % (0-9) Eosinophils (%) (Auto) 1 % (0-3) Basophils (%) (Auto) 1 % (0-3) Neutrophils # (Auto) 5.4 x10^3uL (1.8-7.7) Lymphocytes # (Auto) 2.7 x10^3/uL (1.0-4.8) Monocytes # (Auto) 0.5 x10^3/uL (0.0-1.1) Eosinophils # (Auto) 0.1 x10^3/uL (0.0-0.7) Basophils # (Auto) 0.1 x10^3/uL (0.0-0.2) Urine Collection Type Void Urine Color Yellow Urine Clarity Clear Urine pH 5.5 Urine Specific [place] 1.025 Urine Protein Negative mg/dL (NEG-TRACE) Urine Glucose (UA) Negative mg/dL (NEG) Urine Ketones (Stick) 15 mg/dL (NEG) Urine Blood Negative (NEG) Urine Nitrite Negative (NEG) Urine Bilirubin Negative (NEG) Urine Urobilinogen Dipstick 0.2 mg/dL (0.2 mg/dL) Urine Leukocyte Esterase Small (NEG) Urine RBC Occ /HPF (0-2) Urine WBC 11-20 /HPF (0-4) Urine Squamous Epithelial Cells Many /LPF Urine Bacteria Moderate /HPF (0-FEW) Urine Mucus Marked /LPF Sodium Level 146 mmol/L (136-145) Potassium Level 3.6 mmol/L (3.5-5.1) Chloride Level 109 mmol/L (98-107) Carbon Dioxide Level 29 mmol/L (21-32) Anion Gap 8 (6-14) Blood Urea Nitrogen 12 mg/dL (7-20) Creatinine 0.8 mg/dL (0.6-1.0) Estimated GFR (Cockcroft-Gault) 71.3 BUN/Creatinine Ratio 15 (6-20) Glucose Level 103 mg/dL (70-99) Calcium Level 10.2 mg/dL (8.5-10.1) Total Bilirubin 0.5 mg/dL (0.2-1.0) Aspartate Amino Transf (AST/SGOT) 12 U/L (15-37) Alanine Aminotransferase (ALT/SGPT) 16 U/L (14-59) Alkaline Phosphatase 74 U/L (46-116) Total Protein 6.3 g/dL (6.4-8.2) Albumin 3.5 g/dL (3.4-5.0) Albumin/Globulin Ratio 1.3 (1.0-1.7) Images Images CT head with left frontal extra axial hypodense fluid collection with appearance or subacute/chronic SDH, mild adjacent mass effect, no acute hemorrhages Assessment/Plan Assessment/Plan 66F with SDH, neuro appears intact/baseline -monitor for any neurological changes -SBP<140 recommended - currently in that range -avoid coagulopathy -repeat CT head in AM or sooner if decline occurs FRANSISCO GERBER MD Oct 02, 2016 15:15
[2016-10-02 16:10] VITALS: BP 128/70
--- NOTE | 2016-10-02 16:42 | PDOC1 ---
History and Physical Date of Admission Date of Admission 10/02/16 Identification/Chief Complaint Chief Complaint ams Problems: Source Source: Chart review, Patient History of Present Illness History of Present Illness HPI Patient is a 66 year old F who presents with altered mental status and confusion. pT ACtually looks very good, this is her baseline, aaox3, mild forgetful. She remembered she fell before, was told head bleeding, but doesnot remember when. She said lives alone, not driving, worried that she accidentally took too much of some of her meds, but cannot tell me which ones, then became confused and therefore called EMS. Denies ext numbness, weakness, fever, chills, sob, N/V, chest pain. head CT showed a new subacute/chronic left frontal subdural hematoma. She was here in 07/2016 for subdural hematoma wo sx. denies dysuria, but has frequency. chronic constipation. denies recent fall. Past Medical History Cardiovascular: HTN, Syncope, Hyperlipidemia Pulmonary: COPD Psych: Anxiety, Depression Renal/: Other Endocrine: Hypothyroidism Past Surgical History Past Surgical History: Cataract Removal, Tubal Ligation, Other Family History Family History: Diabetes Social History Smoke: No ALCOHOL: none Drugs: None Current Problem List Problem List Problems Medical Problems: (1) Altered mental status Status: Acute (2) Subacute subdural hematoma Status: Acute Current Medications Current Medications Current Medications Medications (Trade) Dose Ordered Sig/Kaela Start Time Stop Time Status Last Admin Dose Admin Acetaminophen (Tylenol) 650 mg PRN Q4HRS PRN 10/02/16 13:45 10/03/16 13:44 Morphine Sulfate 4 mg PRN Q2HR PRN 10/02/16 13:45 10/03/16 13:44 Ondansetron HCl (Zofran) 4 mg PRN Q8HRS PRN 10/02/16 13:45 10/03/16 13:44 Allergies Allergies Allergies Coded Allergies Type Severity Reaction Last Updated Verified Penicillins Allergy Intermediate 10/02/16 Yes amoxicillin Allergy Intermediate 10/02/16 Yes codeine Allergy Unknown 10/02/16 Yes doxycycline Allergy Unknown 10/02/16 Yes ROS Review of System CONSTITUTIONAL: No fever or chills EYES: No recent changes SKIN: No rash or itching CARDIOVASCULAR: No chest pain, syncope, palpitations, or edema RESPIRATORY: No SOB or cough GASTROINTESTINAL: No nausea, vomiting or abdominal pain NEUROLOGICAL: No headaches or weakness ENDOCRINE: No cold or heat intolerance GENITOURINARY: No urgency or frequency of urination MUSCULOSKELETAL: No back pain or joint pain LYMPHATICS: No enlarged lymph nodes PSYCHIATRIC: No anxiety or depression Physical Exam Physical Exam GEN.: No apparent distress. Alert and oriented. HEENT: Head is normocephalic, atraumatic NECK: Supple. LUNGS: Clear to auscultation. HEART: RRR, S1, S2 present. Peripheral pulses intact ABDOMEN: Soft, nontender. Positive bowel sounds. EXTREMITIES: Without any cyanosis. NEUROLOGIC: Normal speech, normal tone PSYCHIATRIC: Normal affect, normal mood. SKIN: No ulcerations Vitals Vitals Vital Signs Date Time Temp Pulse Resp B/P (MAP) Pulse Ox O2 Delivery O2 Flow Rate FiO2 10/02/16 16:10 98.1 63 18 128/70 (89) 95 Room Air 98.1 Labs Labs Laboratory Tests Test 10/02/16 12:20 10/02/16 13:10 10/02/16 13:30 White Blood Count 8.7 x10^3/uL (4.0-11.0) Red Blood Count 3.87 x10^6/uL (3.50-5.40) Hemoglobin 13.1 g/dL (12.0-15.5) Hematocrit 37.4 % (36.0-47.0) Mean Corpuscular Volume 97 fL (79-100) Mean Corpuscular Hemoglobin 34 pg (25-35) Mean Corpuscular Hemoglobin Concent 35 g/dL (31-37) Red Cell Distribution Width 13.2 % (11.5-14.5) Platelet Count 213 x10^3/uL (140-400) Neutrophils (%) (Auto) 62 % (31-73) Lymphocytes (%) (Auto) 31 % (24-48) Monocytes (%) (Auto) 6 % (0-9) Eosinophils (%) (Auto) 1 % (0-3) Basophils (%) (Auto) 1 % (0-3) Neutrophils # (Auto) 5.4 x10^3uL (1.8-7.7) Lymphocytes # (Auto) 2.7 x10^3/uL (1.0-4.8) Monocytes # (Auto) 0.5 x10^3/uL (0.0-1.1) Eosinophils # (Auto) 0.1 x10^3/uL (0.0-0.7) Basophils # (Auto) 0.1 x10^3/uL (0.0-0.2) Urine Collection Type Void Urine Color Yellow Urine Clarity Clear Urine pH 5.5 Urine Specific [place] 1.025 Urine Protein Negative mg/dL (NEG-TRACE) Urine Glucose (UA) Negative mg/dL (NEG) Urine Ketones (Stick) 15 mg/dL (NEG) Urine Blood Negative (NEG) Urine Nitrite Negative (NEG) Urine Bilirubin Negative (NEG) Urine Urobilinogen Dipstick 0.2 mg/dL (0.2 mg/dL) Urine Leukocyte Esterase Small (NEG) Urine RBC Occ /HPF (0-2) Urine WBC 11-20 /HPF (0-4) Urine Squamous Epithelial Cells Many /LPF Urine Bacteria Moderate /HPF (0-FEW) Urine Mucus Marked /LPF Sodium Level 146 mmol/L (136-145) Potassium Level 3.6 mmol/L (3.5-5.1) Chloride Level 109 mmol/L (98-107) Carbon Dioxide Level 29 mmol/L (21-32) Anion Gap 8 (6-14) Blood Urea Nitrogen 12 mg/dL (7-20) Creatinine 0.8 mg/dL (0.6-1.0) Estimated GFR (Cockcroft-Gault) 71.3 BUN/Creatinine Ratio 15 (6-20) Glucose Level 103 mg/dL (70-99) Calcium Level 10.2 mg/dL (8.5-10.1) Total Bilirubin 0.5 mg/dL (0.2-1.0) Aspartate Amino Transf (AST/SGOT) 12 U/L (15-37) Alanine Aminotransferase (ALT/SGPT) 16 U/L (14-59) Alkaline Phosphatase 74 U/L (46-116) Total Protein 6.3 g/dL (6.4-8.2) Albumin 3.5 g/dL (3.4-5.0) Albumin/Globulin Ratio 1.3 (1.0-1.7) Laboratory Tests Test 10/02/16 12:20 10/02/16 13:10 10/02/16 13:30 White Blood Count 8.7 x10^3/uL (4.0-11.0) Red Blood Count 3.87 x10^6/uL (3.50-5.40) Hemoglobin 13.1 g/dL (12.0-15.5) Hematocrit 37.4 % (36.0-47.0) Mean Corpuscular Volume 97 fL (79-100) Mean Corpuscular Hemoglobin 34 pg (25-35) Mean Corpuscular Hemoglobin Concent 35 g/dL (31-37) Red Cell Distribution Width 13.2 % (11.5-14.5) Platelet Count 213 x10^3/uL (140-400) Neutrophils (%) (Auto) 62 % (31-73) Lymphocytes (%) (Auto) 31 % (24-48) Monocytes (%) (Auto) 6 % (0-9) Eosinophils (%) (Auto) 1 % (0-3) Basophils (%) (Auto) 1 % (0-3) Neutrophils # (Auto) 5.4 x10^3uL (1.8-7.7) Lymphocytes # (Auto) 2.7 x10^3/uL (1.0-4.8) Monocytes # (Auto) 0.5 x10^3/uL (0.0-1.1) Eosinophils # (Auto) 0.1 x10^3/uL (0.0-0.7) Basophils # (Auto) 0.1 x10^3/uL (0.0-0.2) Urine Collection Type Void Urine Color Yellow Urine Clarity Clear Urine pH 5.5 Urine Specific [place] 1.025 Urine Protein Negative mg/dL (NEG-TRACE) Urine Glucose (UA) Negative mg/dL (NEG) Urine Ketones (Stick) 15 mg/dL (NEG) Urine Blood Negative (NEG) Urine Nitrite Negative (NEG) Urine Bilirubin Negative (NEG) Urine Urobilinogen Dipstick 0.2 mg/dL (0.2 mg/dL) Urine Leukocyte Esterase Small (NEG) Urine RBC Occ /HPF (0-2) Urine WBC 11-20 /HPF (0-4) Urine Squamous Epithelial Cells Many /LPF Urine Bacteria Moderate /HPF (0-FEW) Urine Mucus Marked /LPF Sodium Level 146 mmol/L (136-145) Potassium Level 3.6 mmol/L (3.5-5.1) Chloride Level 109 mmol/L (98-107) Carbon Dioxide Level 29 mmol/L (21-32) Anion Gap 8 (6-14) Blood Urea Nitrogen 12 mg/dL (7-20) Creatinine 0.8 mg/dL (0.6-1.0) Estimated GFR (Cockcroft-Gault) 71.3 BUN/Creatinine Ratio 15 (6-20) Glucose Level 103 mg/dL (70-99) Calcium Level 10.2 mg/dL (8.5-10.1) Total Bilirubin 0.5 mg/dL (0.2-1.0) Aspartate Amino Transf (AST/SGOT) 12 U/L (15-37) Alanine Aminotransferase (ALT/SGPT) 16 U/L (14-59) Alkaline Phosphatase 74 U/L (46-116) Total Protein 6.3 g/dL (6.4-8.2) Albumin 3.5 g/dL (3.4-5.0) Albumin/Globulin Ratio 1.3 (1.0-1.7) VTE Prophylaxis Ordered VTE Prophylaxis Devices: Yes VTE Pharmacological Prophylaxi: No Assessment/Plan Assessment/Plan possible AMS with metabolic encephalopathy, resolved subacute/chronic left frontal subdural hematoma UTI recent SAD 07/2016 HTN HYPothyroidism h/o CAD h/o VASOvagal syncope anxiety chronic constipation copd hld plan: fu with dr. Calderón, neuro check, keep BP <140/[address] TMR HOLD asa, plavix cont other home meds cipro , fu ucx ptot stool softner pt doesnot want SW or SNF. TRESSA WILD MD Oct 02, 2016 16:42
[2016-10-02] MEDS ORDERED: MORPHINE SULFATE 2 MG/ML DISP.SYRIN. IV PRN (16:45)
[2016-10-02] MEDS ORDERED: hydrALAZINE 20 MG/ML VIAL. IVP PRN ×2 (16:45)
[2016-10-02] MEDS ORDERED: DOCUSATE SODIUM 100 MG CAPSULE. PO PRN (16:45)
[2016-10-02] MEDS ORDERED: traMADol 50 MG TABLET PO PRN (16:45)
[2016-10-02] MEDS: CIPROFLOXACIN HCL 250 MG TABLET. PO SCH (18:33)
[2016-10-02 19:00] VITALS: BP 119/72
[2016-10-02] MEDS ORDERED: SIMVASTATIN 20 MG TABLET PO SCH (21:00)
[2016-10-02] MEDS ORDERED: traZODone 50 MG TABLET. PO SCH (21:00)
[2016-10-02] MEDS: levETIRAcetam 500 MG TABLET PO SCH (21:02)
[2016-10-02] MEDS: OXYBUTYNIN CHLORIDE 5 MG TABLET PO SCH (21:02)
[2016-10-02 23:00] VITALS: BP 122/70
[2016-10-03 03:00] VITALS: BP 133/40
[2016-10-03 06:31] LABS: BASO # 0.1 x10^3/uL (0.0-0.2); BASO % 1 % (0-3); EOS % 2 % (0-3); HEMATOCRIT 35.2 % (36.0-47.0); LYMPH # 3.3 x10^3/uL (1.0-4.8); LYMPH % 40 % (24-48); MEAN CORPUSCULAR HEMOGLOBIN 34 pg (25-35); MEAN CORPUSCULAR HGB CONC 34 g/dL (31-37); MEAN CORPUSCULAR VOLUME 99 fL (79-100); MONO % 6 % (0-9); NEUT % 51 % (31-73); PLATELET COUNT 182 x10^3/uL (140-400); RED BLOOD COUNT 3.57 x10^6/uL (3.50-5.40); WHITE BLOOD COUNT 8.2 x10^3/uL (4.0-11.0)
[2016-10-03 06:40] LABS: CALCIUM 9.8 mg/dL (8.5-10.1); CREATININE 0.7 mg/dL (0.6-1.0); GFR 83.2; POTASSIUM 3.5 mmol/L (3.5-5.1)
--- NOTE | 2016-10-03 06:57 | EKG ---
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
[2016-10-03] MEDS ORDERED: LEVOTHYROXINE 50 MCG TABLET PO SCH (07:00)
[2016-10-03 07:45] VITALS: BP 140/73
[2016-10-03] MEDS: CIPROFLOXACIN HCL 250 MG TABLET. PO SCH (08:48)
[2016-10-03] MEDS: OXYBUTYNIN CHLORIDE 5 MG TABLET PO SCH ×2 (08:49→15:16)
[2016-10-03] MEDS: levETIRAcetam 500 MG TABLET PO SCH (08:51)
[2016-10-03] MEDS ORDERED: LISINOPRIL 20 MG TABLET PO SCH (09:00)
[2016-10-03] MEDS ORDERED: CIPR250T30 PO (10:38)
[2016-10-03 11:33] VITALS: BP 135/66
--- NOTE | 2016-10-03 11:43 | PDOC3 ---
Discharge Summary [facility] Date of Admission: Oct 02, 2016 Discharge Date: Oct 03, 2016 Admitting Diagnosis possible AMS with metabolic encephalopathy, resolved subacute/chronic left frontal subdural hematoma on CT UTI recent SAD 07/2016 HTN HYPothyroidism h/o CAD h/o VASOvagal syncope anxiety chronic constipation copd hld Problems: Final Diagnosis CONSULTS neuro sx Brief Hospital Course Patient is a 66 year old F who presents with altered mental status and confusion. pT ACtually looks very good, this is her baseline, aaox3, mild forgetful. She remembered she fell before, was told head bleeding, but doesnot remember when. She said lives alone, not driving, worried that she accidentally took too much of some of her meds, but cannot tell me which ones, then became confused and therefore called EMS. Denies ext numbness, weakness, fever, chills, sob, N/V, chest pain. head CT showed a new subacute/chronic left frontal subdural hematoma. She was here in 07/2016 for subdural hematoma wo sx. denies dysuria, but has frequency. chronic constipation. denies recent fall. pt lives alone, with sister help sometime, not happy about transportation without a walker, but refused to go to rehab to talk to . will get for transportation. head CT repeat today, result pending, dc home if no neurosx intervention. hold asa, plavix. dc with cipro x5ds totally. dc time 35min. GEN.: No apparent distress. Alert and oriented. HEENT: Head is normocephalic, atraumatic NECK: Supple. LUNGS: Clear to auscultation. HEART: RRR, S1, S2 present. Peripheral pulses intact ABDOMEN: Soft, nontender. Positive bowel sounds. EXTREMITIES: Without any cyanosis. NEUROLOGIC: Normal speech, normal tone PSYCHIATRIC: Normal affect, normal mood. SKIN: No ulcerations Patient History: FH: liver cancer 33 FATHER Family history: Cardiovascular disease (situation) 32 MOTHER Unknown Problems: Disposition home CONDITION AT DISCHARGE: Improved Diet regular Scheduled Ciprofloxacin Hcl (Cipro), 250 MG PO BID Levetiracetam (Levetiracetam), 500 MG PO BID Levothyroxine Sodium (Synthroid), 50 MCG PO DAILY07 Lisinopril (Lisinopril), 1 TAB PO DAILY, (Reported) Simvastatin (Simvastatin), 20 MG PO DAILY, (Reported) Trazodone Hcl (Trazodone Hcl), 1 TAB PO QHS, (Reported) Discontinued Medications Clopidogrel Bisulfate (Clopidogrel), 1 TAB PO DAILY, (Reported) Follow Up pcp in 2 weeks TRESSA WILD MD Oct 03, 2016 11:43
--- NOTE | 2016-10-03 12:16 | RAD ---
CT of the head without contrast, 10/03/2016: History: Follow-up subdural hematoma Comparison is made yesterday study. There is a persistent abnormal extra-axial process in the left frontal region. It is predominantly of slightly higher density than the CSF with some streaking internal areas of medium density. A subacute/chronic subdural hematoma is again suspected. It is unchanged in size and configuration since yesterday's study. There is a slight mass effect upon the anterior/inferior aspect of the left frontal lobe. There is only slight unchanged left to right shift of the midline structures. The ventricles are not significantly effaced. No new or acute intracranial hemorrhage is seen. IMPRESSION: No significant change since yesterday's study. PQRS Compliance Statement: One or more of the following individualized dose reduction techniques were utilized for this examination: 1. Automated exposure control 2. Adjustment of the mA and/or kV according to patient size 3. Use of iterative reconstruction technique
--- NOTE | 2016-10-03 13:08 | PDOC ---
SUBJECTIVE Subjective Denies acute complaints. OBJECTIVE Objective CT head stable this AM. Vital Signs Vital Signs Date Time Temp Pulse Resp B/P (MAP) Pulse Ox O2 Delivery O2 Flow Rate FiO2 10/03/16 11:33 97.9 57 18 135/66 (89) 94 Room Air 97.9 10/03/16 08:49 62 140/73 10/03/16 08:00 Room Air 10/03/16 07:45 98.8 62 18 140/73 (95) 93 Room Air 98.8 10/03/16 03:00 97.9 60 16 133/40 (71) 93 97.9 10/02/16 23:00 98.4 63 16 122/70 (87) 93 98.4 10/02/16 20:00 Room Air 10/02/16 19:00 98.4 66 18 119/72 (88) 91 98.4 10/02/16 18:03 Room Air 10/02/16 16:10 98.1 63 18 128/70 (89) 95 Room Air 98.1 10/02/16 16:10 98.1 63 18 128/70 (89) 95 Room Air 98.1 10/02/16 14:13 75 123/75 (91) 92 Room Air 10/02/16 13:43 72 132/79 (96) 92 Room Air 10/02/16 13:13 61 148/73 (98) 93 Room Air 10/02/16 13:11 64 153/72 (99) I & O Intake and Output 10/03/16 07:00 Intake Total 300 ml Output Total 300 ml Balance 0 ml Intake Oral 300 ml Output Urine Total 300 ml # Voids 4 PHYSICAL EXAM Physical Exam AA, NAD, CN intact, OCAMPO 5/5, sensation intact LT ASSESSMENT/PLAN Assessment/Plan 66F with left frontal subacute/chronic SDH, neurologically stable and intact, radiographically stable with minimal mass effect -may d/c from NS standpoint if continues to be stable and if otherwise meets medical criteria -recommend repeat noncontrast CT head 3-4 weeks or sooner if problems -d/w patient, all questions answered, all in agreement Problems: COMMENT Lab Laboratory Tests Test 10/02/16 13:10 10/02/16 13:30 10/03/16 05:30 Urine Collection Type Void Urine Color Yellow Urine Clarity Clear Urine pH 5.5 Urine Specific [place] 1.025 Urine Protein Negative mg/dL (NEG-TRACE) Urine Glucose (UA) Negative mg/dL (NEG) Urine Ketones (Stick) 15 mg/dL (NEG) Urine Blood Negative (NEG) Urine Nitrite Negative (NEG) Urine Bilirubin Negative (NEG) Urine Urobilinogen Dipstick 0.2 mg/dL (0.2 mg/dL) Urine Leukocyte Esterase Small (NEG) Urine RBC Occ /HPF (0-2) Urine WBC 11-20 /HPF (0-4) Urine Squamous Epithelial Cells Many /LPF Urine Bacteria Moderate /HPF (0-FEW) Urine Mucus Marked /LPF Sodium Level 146 mmol/L (136-145) 145 mmol/L (136-145) Potassium Level 3.6 mmol/L (3.5-5.1) 3.5 mmol/L (3.5-5.1) Chloride Level 109 mmol/L (98-107) 111 mmol/L (98-107) Carbon Dioxide Level 29 mmol/L (21-32) 28 mmol/L (21-32) Anion Gap 8 (6-14) 6 (6-14) Blood Urea Nitrogen 12 mg/dL (7-20) 11 mg/dL (7-20) Creatinine 0.8 mg/dL (0.6-1.0) 0.7 mg/dL (0.6-1.0) Estimated GFR (Cockcroft-Gault) 71.3 83.2 BUN/Creatinine Ratio 15 (6-20) Glucose Level 103 mg/dL (70-99) 85 mg/dL (70-99) Calcium Level 10.2 mg/dL (8.5-10.1) 9.8 mg/dL (8.5-10.1) Total Bilirubin 0.5 mg/dL (0.2-1.0) Aspartate Amino Transf (AST/SGOT) 12 U/L (15-37) Alanine Aminotransferase (ALT/SGPT) 16 U/L (14-59) Alkaline Phosphatase 74 U/L (46-116) Total Protein 6.3 g/dL (6.4-8.2) Albumin 3.5 g/dL (3.4-5.0) Albumin/Globulin Ratio 1.3 (1.0-1.7) White Blood Count 8.2 x10^3/uL (4.0-11.0) Red Blood Count 3.57 x10^6/uL (3.50-5.40) Hemoglobin 12.0 g/dL (12.0-15.5) Hematocrit 35.2 % (36.0-47.0) Mean Corpuscular Volume 99 fL (79-100) Mean Corpuscular Hemoglobin 34 pg (25-35) Mean Corpuscular Hemoglobin Concent 34 g/dL (31-37) Red Cell Distribution Width 13.0 % (11.5-14.5) Platelet Count 182 x10^3/uL (140-400) Neutrophils (%) (Auto) 51 % (31-73) Lymphocytes (%) (Auto) 40 % (24-48) Monocytes (%) (Auto) 6 % (0-9) Eosinophils (%) (Auto) 2 % (0-3) Basophils (%) (Auto) 1 % (0-3) Neutrophils # (Auto) 4.2 x10^3uL (1.8-7.7) Lymphocytes # (Auto) 3.3 x10^3/uL (1.0-4.8) Monocytes # (Auto) 0.5 x10^3/uL (0.0-1.1) Eosinophils # (Auto) 0.1 x10^3/uL (0.0-0.7) Basophils # (Auto) 0.1 x10^3/uL (0.0-0.2) FRANSISCO GERBER MD Oct 03, 2016 13:08
[2016-10-03 15:12] VITALS: BP 128/68
== END 2016-10-03 16:04 | disposition home or self-care (01) | DRG 85 ==
LOC: ER 12:10 → 6 SOUTH 13:31
PROVIDERS: ADMIT Internal Medicine; ATTEND Internal Medicine
DX: S06.5X0A Traumatic subdural hemorrhage without loss of consciousness, initial encounter (principal); G93.41 Metabolic encephalopathy; N39.0 Urinary tract infection, site not specified; E03.9 Hypothyroidism, unspecified; E78.00 Pure hypercholesterolemia, unspecified; E78.5 Hyperlipidemia, unspecified; F41.9 Anxiety disorder, unspecified; W19.XXXA Unspecified fall, initial encounter; I10 Essential (primary) hypertension; I25.10 Atherosclerotic heart disease of native coronary artery without angina pectoris; F32.9 Major depressive disorder, single episode, unspecified; J44.9 Chronic obstructive pulmonary disease, unspecified; K59.09 Other constipation; Z82.49 Family history of ischemic heart disease and other diseases of the circulatory system; Z83.3 Family history of diabetes mellitus; Z95.5 Presence of coronary angioplasty implant and graft; Z80.7 Family history of other malignant neoplasms of lymphoid, hematopoietic and related tissues; Z87.01 Personal history of pneumonia (recurrent); Z88.0 Allergy status to penicillin; Z88.1 Allergy status to other antibiotic agents; Z88.5 Allergy status to narcotic agent; Z98.51 Tubal ligation status; Z98.49 Cataract extraction status, unspecified eye; Y93.89 Activity, other specified; Y92.89 Other specified places as the place of occurrence of the external cause; Y99.8 Other external cause status
CPT/HCPCS: 36415; 70450; 71010; 80048; 80053; 81001; 85027; 87086; 93005; 99285-25